=== PATIENT | female | born 1995 | race Caucasian/White ===

== ENCOUNTER 2016-05-02 15:07 | Outpatient (CLI) | payer OTHER | END 2016-05-02 15:08 | disposition home or self-care (01) | DX: Z11.3 Encounter for screening for infections with a predominantly sexual mode of transmission (principal); Z86.59 Personal history of other mental and behavioral disorders ==

== ENCOUNTER 2016-06-17 17:45 | Emergency (ER) | payer OTHER, MEDICAID | END 2016-06-17 18:51 | disposition home or self-care (01) | DX: S30.1XXA Contusion of abdominal wall, initial encounter (principal); Y00.XXXA Assault by blunt object, initial encounter; Y07.03 Male partner, perpetrator of maltreatment and neglect; O99.332 Smoking (tobacco) complicating pregnancy, second trimester; Z3A.15 15 weeks gestation of pregnancy ==

== ENCOUNTER 2016-06-28 18:39 | Outpatient (CLI) | payer OTHER, MEDICAID | END 2016-06-28 18:40 | disposition critical access hospital (66) | DX: R10.9 Unspecified abdominal pain (principal); R51 Headache; W20.8XXA Other cause of strike by thrown, projected or falling object, initial encounter; Y92.89 Other specified places as the place of occurrence of the external cause; R11.2 Nausea with vomiting, unspecified | CPT/HCPCS: A0425; A0429 ==

== ENCOUNTER 2016-06-28 18:54 | Emergency (ER) | payer OTHER, MEDICAID ==
[2016-06-28] MEDS ORDERED: SODIUM CHLORIDE 0.9% 1,000 ML IV ONE (19:06)
== END 2016-06-28 21:58 | disposition home or self-care (01) ==
DX: O26.892 Other specified pregnancy related conditions, second trimester (principal); R10.9 Unspecified abdominal pain; O99.282 Endocrine, nutritional and metabolic diseases complicating pregnancy, second trimester; E87.6 Hypokalemia; O99.332 Smoking (tobacco) complicating pregnancy, second trimester; Z3A.20 20 weeks gestation of pregnancy; R03.0 Elevated blood-pressure reading, without diagnosis of hypertension; Z59.0 Homelessness

== ENCOUNTER 2016-07-03 17:02 | Outpatient (CLI) | payer OTHER, MEDICAID | END 2016-07-03 17:03 | disposition home or self-care (01) | DX: Z36 Encounter for antenatal screening of mother (principal) ==

== ENCOUNTER 2016-07-03 20:32 | Outpatient (CLI) | payer OTHER, MEDICAID | END 2016-07-03 20:33 | disposition home or self-care (01) | DX: Z34.82 Encounter for supervision of other normal pregnancy, second trimester (principal) ==

== ENCOUNTER 2016-09-04 19:06 | Emergency (ER) | payer OTHER, MEDICAID ==
--- NOTE | 2016-09-04 20:21 | ED Physician Documentation ---
PD HPI URI - Stated complaint Stated Complaint: COUGH/30WK OB - Chief complaint Chief Complaint: General - History obtained from History obtained from: Patient - History of Present Illness Timing duration: Days Timing details: Gradual onset, Still present Associated symptoms: Nasal congestion, Rhinorrhea, Productive cough, Other (few brief nosebleeds this past few days.). No: Sore throat Contributing factors: No: Sick contact, Travel, COPD / asthma Similar symptoms before: Has not had sx before Recently seen: Not recently seen (has not been to OB clinic, so did some basic labs. Wanted to see Platelets in particular, given history of some nosebleeds. This was okay. 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 : None HEENT: None Psych: Depression, Anxiety Musculoskeletal: None Derm: Eczema - Past Surgical History Past Surgical History: No - Present Medications Home Medications: Ambulatory Orders Medication Instructions Recorded Confirmed Azithromycin [Zithromax] 250 mg PO DAILY #6 tablet 09/04/16 - Allergies Allergies/Adverse Reactions: Allergies Allergy/AdvReac Type Severity Reaction Status Date / Time No Known Drug Allergies Allergy Verified 06/28/16 18:58 - Social History Does the pt smoke?: Yes Smoking Status: Current every day smoker Does the pt drink ETOH?: Yes Does the pt have substance abuse?: Yes Substance Use and Type: Marijuana, Meth, Heroin - Immunizations Immunizations are current?: Yes - POLST Patient has POLST: No PD ED PE NORMAL - Vitals Vital signs reviewed: Yes - General General: Alert and oriented X 3, Well developed/nourished - HEENT HEENT: Ears normal, Pharynx benign - Neck Neck: Supple, no meningeal sign, No adenopathy - Cardiac Cardiac: RRR, No murmur - Respiratory Respiratory: Clear bilaterally - Abdomen Abdomen: Normal bowel sounds, Soft, Non tender, Non distended, Other (obviously gravid with fundus mid between umbilicus and xyphoid. ) - Derm Derm: Normal color, Warm and dry, No rash - Extremities Extremities: No tenderness to palpate, Normal ROM s pain, No edema, No calf tenderness / cord - Neuro Neuro: Alert and oriented X 3, No motor deficit, Normal speech Results - Vitals Vitals: Oxygen O2 Source Room air - Labs Labs: Laboratory Tests 09/04/16 09/04/16 09/04/16 21:00 21:14 21:14 WBC 15.3 H RBC 4.05 L Hgb 11.8 L Hct 35.5 L MCV 87.6 MCH 29.0 MCHC 33.1 RDW 13.8 Plt Count 447 MPV 7.3 L Neut # 10.8 H Lymph # 3.1 [place] # 1.2 H Eos # 0.2 Baso # 0.0 Absolute Nucleated RBC 0.00 Nucleated RBCs 0.0 Sodium 135 Potassium 3.8 Chloride 100 L Carbon Dioxide 26 Anion Gap 9.0 BUN 11 Creatinine 0.4 Estimated GFR (MDRD) 206 Glucose 86 Calcium 8.6 Total Bilirubin 0.2 AST 13 ALT 16 Alkaline Phosphatase 172 H Total Protein 6.4 L Albumin 2.5 L Globulin 3.9 Albumin/Globulin Ratio 0.6 L Lipase 22 Urine Color YELLOW Urine Clarity CLEAR Urine pH 6.5 Ur Specific [place] 1.025 Urine Protein NEGATIVE Urine Glucose (UA) NEGATIVE Urine Ketones NEGATIVE Urine Occult Blood NEGATIVE Urine Nitrite NEGATIVE Urine Bilirubin NEGATIVE Urine Urobilinogen 0.2 (NORMAL) Ur Leukocyte Esterase NEGATIVE Ur Microscopic Review NOT INDICATED Urine Culture Comments NOT INDICATED Procedures - Bedside sono Bedside sono by EMP: good viable baby with size c/w dates, good movement and heart rate. PD MEDICAL DECISION MAKING - ED course Complexity details: considered differential (I inadvertently ordered dose of robitussin AC (meatn to be just robitussin) given her history of drug abuse. Talked with her and told it was jsut the one dose. ), d/w patient Departure - Departure Disposition: 01 Home, Self Care Clinical Impression: Bronchitis Qualifiers: Weeks of gestation: 30 weeks Qualified Code(s): Z3A.30 - 30 weeks gestation of Condition: Stable Record reviewed to determine appropriate education?: Yes Instructions: ED Upper Resp Infec Abx Tx, ED Care Follow-Up: Foreign Castro MD [Provider Admit Priv/Credential] - Prescriptions: Azithromycin [Zithromax] 250 mg PO DAILY #6 tablet Comments: Use the Albuterol inhaler 2 puffs 4 times daily for 7-10 days. Zithromax for the bronchitis infection. Drink lots of fluids. Tylenol for fevers/pains. Follow up Dr. Castro next week as planned. Your blood tests and urine test is okay here. Discharge Date/Time: 09/04/16 22:01
[2016-09-04] MEDS ORDERED: ALBUTEROL 8 GM INHALER INH STA (20:38)
[2016-09-04] MEDS ORDERED: AZITHROMYCIN 250 MG TABLET PO STA (20:38)
[2016-09-04] MEDS ORDERED: DEXAMETHASONE 10 MG/ML VIAL PO STA (20:38)
[2016-09-04] MEDS ORDERED: guaiFENesin/CODEINE 5 ML UDC PO STA (20:39)
[2016-09-04] MEDS ORDERED: AZITHROMYCIN 250 MG TABLET PO ONE (20:53)
[2016-09-04] MEDS ORDERED: guaiFENesin/CODEINE 5 ML UDC ONE (20:54)
[2016-09-04] MEDS ORDERED: CHERRY SYRUP 10 ML UDC PO ONE (20:54)
[2016-09-04] MEDS ORDERED: DEXAMETHASONE 10 MG/ML VIAL ONE (20:54)
[2016-09-04] MEDS ORDERED: ALBUTEROL 18 GM INHALER INH ONE (20:55)
[2016-09-04 21:27] LABS: BILIRUBIN,URINE NEGATIVE (NEGATIVE); PH,URINE 6.5 PH (5.0-7.5)
[2016-09-04 21:30] LABS: BASOPHILS % (AUTO) 0.3 %; EOSINOPHILS # (AUTO) 0.2 10^3/uL (0.0-0.7); EOSINOPHILS % (AUTO) 1.1 %; HCT - HEMATOCRIT 35.5 % (37.0-47.0); HGB - HEMOGLOBIN 11.8 g/dL (12.0-16.0); LYMPHOCYTES # (AUTO) 3.1 10^3/uL (1.5-3.5); LYMPHOCYTES % (AUTO) 20.1 %; MEAN CORPUSCULAR HGB CONC 33.1 g/dL (32.0-36.0); MEAN CORPUSCULAR VOLUME 87.6 fL (81.0-99.0); MEAN PLATELET VOLUME 7.3 fL (7.9-10.8); MONOCYTES # (AUTO) 1.2 10^3/uL (0.0-1.0); MONOCYTES % (AUTO) 7.6 %; NEUTROPHILS # (AUTO) 10.8 10^3/uL (1.5-6.6); NEUTROPHILS % (AUTO) 70.9 %; RED BLOOD COUNT 4.05 10^6/uL (4.20-5.40); RED CELL DISTRIBUTION WIDTH 13.8 % (12.0-15.0); UNCORRECTED WHITE BLOOD COUNT 15.3 x10^3/uL; WHITE BLOOD COUNT 15.3 x10^3/uL (4.8-10.8)
[2016-09-04 21:34] LABS: ALBUMIN/GLOBULIN RATIO 0.6 (1.0-2.2); BILIRUBIN,TOTAL 0.2 mg/dL (0.2-1.0); CALCIUM 8.6 mg/dL (8.5-10.3); CREATININE 0.4 mg/dL (0.4-1.0); POTASSIUM 3.8 mmol/L (3.5-5.0); TOTAL PROTEIN 6.4 g/dL (6.7-8.2)
[2016-09-04 21:37] LABS: UA CHARGE (STRIP ONLY) YES; UR CULTURE IF IND NOT INDICATED
[2016-09-04 22:06] VITALS: BP 123/81
== END 2016-09-04 22:01 | disposition home or self-care (01) ==
LOC: ED 19:06
DX: O99.513 Diseases of the respiratory system complicating pregnancy, third trimester (principal); J40 Bronchitis, not specified as acute or chronic; O99.333 Smoking (tobacco) complicating pregnancy, third trimester; F17.200 Nicotine dependence, unspecified, uncomplicated; Z3A.30 30 weeks gestation of pregnancy; Z87.898 Personal history of other specified conditions
CPT/HCPCS: 36415; 80053; 81003; 83690; 85025; 94640; 94664; 99283; 99284; A9270; 81001; 87086

== ENCOUNTER 2016-09-08 10:58 | Outpatient (CLI) | payer OTHER, MEDICAID | END 2016-09-08 23:59 | disposition home or self-care (01) | LOC: LAB.R 10:58 | PROVIDERS: ATTEND Obstetrics & Gynecology | DX: Z36 Encounter for antenatal screening of mother (principal) | CPT/HCPCS: 80306 ==

== ENCOUNTER 2016-10-03 15:53 | Inpatient (IN) | payer OTHER, MEDICAID ==
[2016-10-03] MEDS ORDERED: TERBUTALINE 1 MG/ML VIAL SUBQ ONE ×2 (16:27→18:11)
[2016-10-03] MEDS ORDERED: LACTATED RINGERS 1,000 ML IV ONE ×3 (16:27→18:38)
[2016-10-03] MEDS ORDERED: MAGNESIUM SULFATE 2 GRAM 100 ML IV ONE (16:37)
[2016-10-03] MEDS ORDERED: BETAMETHASONE 30 MG/5 ML VIAL ONE (16:38)
[2016-10-03 17:13] VITALS: BP 122/76
[2016-10-03 17:18] LABS: BASOPHILS # (AUTO) 0.1 10^3/uL (0.0-0.1); BASOPHILS % (AUTO) 0.4 %; EOSINOPHILS # (AUTO) 0.1 10^3/uL (0.0-0.7); EOSINOPHILS % (AUTO) 0.6 %; HCT - HEMATOCRIT 34.1 % (37.0-47.0); HGB - HEMOGLOBIN 11.1 g/dL (12.0-16.0); LYMPHOCYTES # (AUTO) 2.6 10^3/uL (1.5-3.5); LYMPHOCYTES % (AUTO) 18.4 %; MEAN CORPUSCULAR HEMOGLOBIN 27.6 pg (27.0-31.0); MEAN CORPUSCULAR HGB CONC 32.6 g/dL (32.0-36.0); MEAN CORPUSCULAR VOLUME 84.5 fL (81.0-99.0); MEAN PLATELET VOLUME 7.6 fL (7.9-10.8); MONOCYTES % (AUTO) 7.4 %; NEUTROPHILS # (AUTO) 10.2 10^3/uL (1.5-6.6); NEUTROPHILS % (AUTO) 73.2 %; NUCLEATED RED BLOOD CELLS AUTO 0.1 /100WBC; RED BLOOD COUNT 4.04 10^6/uL (4.20-5.40); RED CELL DISTRIBUTION WIDTH 15.8 % (12.0-15.0); UNCORRECTED WHITE BLOOD COUNT 13.9 x10^3/uL; WHITE BLOOD COUNT 13.9 x10^3/uL (4.8-10.8)
[2016-10-03] MEDS ORDERED: MAGNESIUM SULFATE 40 GM in LACTATED RINGERS 420 ML IV SCH (17:20)
[2016-10-03] MEDS: MAGNESIUM SULFATE 2 GRAM 50 ML IV SCH ×2 (17:31→17:32)
[2016-10-03 17:32] LABS: URIC ACID 4.4 mg/dL (2.6-7.2)
[2016-10-03 17:48] LABS: UR CULTURE IF IND INDICATED; WBC,URINE QNS /HPF (0-5)
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
== END 2016-10-03 19:19 | disposition short-term general hospital (02) | DRG 778 ==
LOC: WFO 15:53 → OB 15:54 → WFO 16:29 → OB 16:30
PROVIDERS: ADMIT Obstetrics & Gynecology; ATTEND Obstetrics & Gynecology
DX: O60.03 Preterm labor without delivery, third trimester (principal); O99.513 Diseases of the respiratory system complicating pregnancy, third trimester; J45.909 Unspecified asthma, uncomplicated; O99.333 Smoking (tobacco) complicating pregnancy, third trimester; F17.210 Nicotine dependence, cigarettes, uncomplicated; Z3A.34 34 weeks gestation of pregnancy; Z59.0 Homelessness; Z91.19 Patient's noncompliance with other medical treatment and regimen; Z63.0 Problems in relationship with spouse or partner
CPT/HCPCS: 80306; 81001; 82570; 83615; 84156; 84450; 84550; 85025; 87081; 87086; 87491; 87591; 87797; 99214

== ENCOUNTER 2016-10-03 19:20 | Outpatient (CLI) | payer OTHER, MEDICAID | END 2016-10-03 19:21 | disposition short-term general hospital (02) | LOC: EMS 19:20 | PROVIDERS: ATTEND Surgery | DX: O60.03 Preterm labor without delivery, third trimester (principal) | CPT/HCPCS: A0425; A0434 ==

== ENCOUNTER 2017-04-07 17:35 | Outpatient (CLI) | payer OTHER, MEDICAID | END 2017-04-07 17:36 | disposition critical access hospital (66) | LOC: EMS 17:35 | PROVIDERS: ATTEND Surgery | DX: R10.9 Unspecified abdominal pain (principal) | CPT/HCPCS: A0425; A0429 ==

== ENCOUNTER 2017-04-07 17:55 | Emergency (ER) | payer OTHER, MEDICAID ==
[2017-04-07 18:14] VITALS: BP 112/98
--- NOTE | 2017-04-07 19:20 | ED Physician Documentation ---
History of Present Illness - Stated complaint Stated Complaint: ABD CRAMPS - Chief complaint Chief Complaint: Abd Pain - History obtained from History obtained from: Patient, EMS - History of Present Illness Timing: Today Pain level max: 10 Pain level now: 0 Improved by: nothing Worsened by: nothing - Treatment prior to arrival Treatment prior to arrival: Patient is a 21-year-old female who presents to the emergency department complaining of abdominal cramping that feels like "menstrual cramps". She states that her LMP was 1 month ago. States increased pain today. Last used heroin 2 weeks ago. Last used methamphetamines 2-3 days ago. States the cramping has now resolved. Also had diarrhea 1. Concerned that she could be . Review of Systems Constitutional: denies: Fever, Chills Throat: denies: Sore throat Cardiac: denies: Chest pain / pressure Respiratory: denies: Cough GI: reports: Diarrhea (Once). denies: Nausea, Vomiting, Hematemesis, Bloody / black stool : denies: Dysuria, Frequency, Hesitancy, Discharge Skin: denies: Rash Musculoskeletal: denies: Neck pain, Back pain Neurologic: denies: Headache PD PAST MEDICAL HISTORY - Past Medical History Past Medical History: Yes Cardiovascular: None Respiratory: None Neuro: None Endocrine/Autoimmune: None GI: None RN OTOLARYNGOLOGY: None : None HEENT: None Psych: Depression, Anxiety Musculoskeletal: None Derm: Eczema - Past Surgical History Past Surgical History: No - Present Medications Home Medications: Ambulatory Orders Medication Instructions Recorded Confirmed Azithromycin [Zithromax] 250 mg PO DAILY #6 tablet 09/04/16 - Allergies Allergies/Adverse Reactions: Allergies Allergy/AdvReac Type Severity Reaction Status Date / Time No Known Drug Allergies Allergy Verified 04/07/17 18:02 - Social History Does the pt smoke?: No Smoking Status: Never smoker Does the pt drink ETOH?: Yes ETOH Use: Beer, Liquor Does the pt have substance abuse?: Yes Substance Use and Type: Marijuana, Meth, Heroin - Immunizations Immunizations are current?: Yes - POLST Patient has POLST: No PD ED PE NORMAL - Vitals Vital signs reviewed: Yes - General General: Alert and oriented X 3, No acute distress, Well developed/nourished - HEENT HEENT: PERRL, Moist mucous membranes - Neck Neck: Supple, no meningeal sign - Cardiac Cardiac: RRR, Strong equal pulses - Respiratory Respiratory: No respiratory distress, Clear bilaterally - Abdomen Abdomen: Soft, Non tender, Non distended - Female Female : Pt declined - Back Back: No CVA TTP, No spinal TTP - Derm Derm: Warm and dry - Extremities Extremities: No calf tenderness / cord - Neuro Neuro: Alert and oriented X 3 - Psych Psych: Normal mood, Normal affect Results - Vitals Vitals: Vital Signs - 24 hr 04/07/17 17:55 Temperature 36.7 C Heart Rate 87 Respiratory 14 Rate Blood Pressure 112/98 H O2 Saturation 100 Oxygen O2 Source Room air - Labs Labs: Laboratory Tests 04/07/17 04/07/17 19:13 19:13 Urine Color DARK YELLOW Urine Clarity HAZY Urine pH 5.5 Ur Specific [place] >=1.030 H Urine Protein NEGATIVE Urine Glucose (UA) NEGATIVE Urine Ketones TRACE Urine Occult Blood NEGATIVE Urine Nitrite NEGATIVE Urine Bilirubin MODERATE H Urine Urobilinogen 0.2 (NORMAL) Ur Leukocyte Esterase NEGATIVE Urine RBC 0-5 Urine WBC 0-3 Ur Squamous Epith Cells MANY Squamous H Amorphous Sediment Few Urine Bacteria Rare Ur Microscopic Review INDICATED Urine Culture Comments NOT INDICATED Urine HCG, Qual NEGATIVE Urine Opiates Screen NEGATIVE Ur Oxycodone Screen NEGATIVE Urine Methadone Screen NEGATIVE Ur Propoxyphene Screen NEGATIVE Ur Barbiturates Screen NEGATIVE Ur Tricyclics Screen NEGATIVE Ur Phencyclidine Scrn NEGATIVE Ur Amphetamine Screen POSITIVE H U Methamphetamines Scrn POSITIVE H U Benzodiazepines Scrn NEGATIVE Urine Cocaine Screen NEGATIVE U Cannabinoids Screen POSITIVE H PD MEDICAL DECISION MAKING - ED course Complexity details: reviewed results, re-evaluated patient, considered differential, d/w patient ED course: Patient is a 21-year-old female presents to the emergency department with abdominal/pelvic pain of unclear etiology. Resolved in the emergency department. Will have her follow-up with her PCP for further evaluation and care. No acute findings on urinalysis that would explain her symptoms. Patient does not desire any further workup at this time. She states that she just wants to eat. Patient counseled regarding signs and symptoms for which I believe and urgent re-evaluation would be necessary. Patient with good understanding of and agreement to plan and is comfortable going home at this time This document was made in part using voice recognition software. While efforts are made to proofread this document, sound alike and grammatical errors may occur. Departure - Departure Disposition: 01 Home, Self Care Clinical Impression: Abdominal pain Qualifiers: Abdominal location: unspecified location Qualified Code(s): R10.9 - Unspecified abdominal pain Condition: Good Instructions: ED Abdominal Pain Unkn Cause Follow-Up: Yany Rivas ARNP [Primary Care Provider] - Within 1 week Comments: Return if you worsen. Discharge Date/Time: 04/07/17 20:45
[2017-04-07 19:40] LABS: GLUCOSE, URINE (UA) NEGATIVE (NEGATIVE); KETONES,URINE (UA) TRACE mg/dL (NEGATIVE); LEUKOCYTE ESTERASE, URINE NEGATIVE (NEGATIVE); NITRITE,URINE NEGATIVE (NEGATIVE); OCCULT BLOOD,URINE NEGATIVE (NEGATIVE); PH,URINE 5.5 PH (5.0-7.5); PROTEIN,URINE NEGATIVE (NEGATIVE); UROBILINOGEN,URINE 0.2 (NORMAL) E.U./dL (NORMAL)
[2017-04-07 19:44] LABS: BILIRUBIN,URINE MODERATE (NEGATIVE); CLARITY,URINE HAZY (CLEAR); HCG UR QUAL NEGATIVE; ICTOTEST,URINE POSITIVE
[2017-04-07 19:50] LABS: MUDS CUTOFF CONCENTRATIONS CUTOFF CONC BELOW:
[2017-04-07 19:57] LABS: AMORPHOUS SEDIMENT,UR Few /LPF; BACTERIA,URINE Rare /HPF (None Seen); RBC,URINE 0-5 /HPF (0-5); SQUAMOUS EPITHELIAL CELL,UR MANY Squamous (<= Few)
[2017-04-07 20:04] LABS: COCAINE SCREEN URINE NEGATIVE (NEGATIVE); METHAMPHETAMINES SCREEN, URINE POSITIVE (NEGATIVE)
[2017-04-07 20:05] LABS: AMPHETAMINE SCREEN,URINE POSITIVE (NEGATIVE); BENZODIAZEPINES SCREEN, URINE NEGATIVE (NEGATIVE); METHADONE SCREEN, URINE NEGATIVE (NEGATIVE); OPIATE SCREEN, URINE NEGATIVE (NEGATIVE); OXYCODONE SCREEN, URINE NEGATIVE (NEGATIVE); PROPOXYPHENE SCREEN, URINE NEGATIVE (NEGATIVE); TRICYCLIC ANTIDEPRESSANT,URINE NEGATIVE (NEGATIVE)
== END 2017-04-07 20:45 | disposition home or self-care (01) ==
LOC: EDUNIT# → ED 17:55 → SUPCPDRO 17:55 → ED 20:45
DX: R10.9 Unspecified abdominal pain (principal)
CPT/HCPCS: 80306; 81001; 81003; 81025; 87086; 99283

== ENCOUNTER 2018-03-15 18:02 | Emergency (ER) | payer MEDICAID, OTHER ==
[2018-03-15 18:07] VITALS: BP 139/89
== END 2018-03-15 18:41 | disposition left against medical advice (07) ==
LOC: ED 18:02
DX: Z53.21 Procedure and treatment not carried out due to patient leaving prior to being seen by health care provider (principal)

== ENCOUNTER 2018-10-11 02:13 | Emergency (ER) | payer MEDICAID ==
[2018-10-11 02:28] VITALS: BP 138/96
--- NOTE | 2018-10-11 02:47 | ED Physician Documentation ---
PD HPI SKIN - Stated complaint Stated Complaint: RASH - Chief complaint Chief Complaint: Wound - History obtained from History obtained from: Patient - History of Present Illness Timing - onset: How many days ago (3) Timing - duration: Days (3) Timing - details: Still present Location: Chest, Back Quality / character: Itchy, Painful Similar symptoms before: Has not had sx before - Additional information Additional information: The patient is a 22-year-old female who presents with "red bumps" on the left side of her chest and shoulder. The rash started 3 days ago and has gotten progressively worse. She reports associated itching and "stinging sensation." She denies history of similar symptoms in the past. Her history is significant for daily methamphetamine use and recent heroin use, which she inhales. She denies history of MRSA. 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 : None HEENT: None Psych: Depression, Anxiety Musculoskeletal: None Derm: Eczema - Past Surgical History Past Surgical History: No - Present Medications Home Medications: Ambulatory Orders Medication Instructions Recorded Confirmed Acyclovir 200 mg PO 5XD #50 capsule 10/11/18 - Allergies Allergies/Adverse Reactions: Allergies Allergy/AdvReac Type Severity Reaction Status Date / Time No Known Drug Allergies Allergy Verified 10/11/18 02:28 - Social History Does the pt smoke?: Yes Smoking Status: Current every day smoker Does the pt drink ETOH?: Yes Does the pt have substance abuse?: Yes Substance Use and Type: Meth, Heroin - Immunizations Immunizations are current?: No - POLST Patient has POLST: No PD ED PE NORMAL - Vitals Vital signs reviewed: Yes (Borderline hypertension initially.) - General General: Alert and oriented X 3, Well developed/nourished - HEENT HEENT: Atraumatic, PERRL, EOMI, Pharynx benign, Other (Pupils are neuro at less than 4 mm, equal bilaterally.) - Neck Neck: Supple, no meningeal sign, No adenopathy - Cardiac Cardiac: RRR, No murmur - Respiratory Respiratory: No respiratory distress, Clear bilaterally - Abdomen Abdomen: Soft, Non tender - Back Back: No CVA TTP, No spinal TTP - Derm Derm: Other (Vesicular and papular rash involving the left anterior chest and left posterior shoulder, and dermatomal distribution.) - Extremities Extremities: No edema, No calf tenderness / cord - Neuro Neuro: Alert and oriented X 3, No motor deficit, No sensory deficit, Normal speech Results - Vitals Vitals: Oxygen O2 Source Room air PD MEDICAL DECISION MAKING - ED course Complexity details: reviewed old records, considered differential, d/w patient ED course: The patient's presentation is most consistent with shingles, characterized by vesicular rash in dermatomal distribution. She is being discharged with prescription for acyclovir. I discussed with her the expected course of illness, outpatient treatment and follow-up, as well as potentially worrisome signs or symptoms that should prompt reevaluation in the emergency department. She declined referral for drug treatment. Departure - Departure Disposition: 01 Home, Self Care Clinical Impression: Shingles Qualifiers: Herpes zoster complications: without complications Qualified Code(s): B02.9 - Zoster without complications Condition: Stable Instructions: ED Shingles Follow-Up: [facility] [Provider Group] Prescriptions: Acyclovir 200 mg PO 5XD #50 capsule Comments: Take acyclovir 5 times daily as prescribed. You can use ibuprofen, up to 800 mg 3 times daily for anti-inflammatory effect. Consider seeking outpatient treatment for drug addiction. Follow-up with primary physician within 1 to 2 weeks. Call to schedule appointment. Return to the emergency department if you develop increasingly painful rash or secondary infection, or otherwise worsening symptoms. Discharge Date/Time: 10/11/18 02:53
== END 2018-10-11 02:53 | disposition home or self-care (01) ==
LOC: ED 02:13
DX: B02.9 Zoster without complications (principal); F17.200 Nicotine dependence, unspecified, uncomplicated
CPT/HCPCS: 99282; 99284

== ENCOUNTER 2018-11-20 22:16 | Emergency (ER) | payer OTHER, MEDICAID ==
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
[2018-11-20] MEDS ORDERED: ACETAMINOPHEN 325 MG TABLET PO STA (23:12)
[2018-11-20] MEDS ORDERED: IBUPROFEN 600 MG TABLET PO STA (23:12)
[2018-11-20 23:15] VITALS: BP 115/84
== END 2018-11-20 23:35 | disposition home or self-care (01) ==
LOC: ED 22:16
DX: S00.33XA Contusion of nose, initial encounter (principal); Y04.2XXA Assault by strike against or bumped into by another person, initial encounter; F17.200 Nicotine dependence, unspecified, uncomplicated
CPT/HCPCS: 70160; 99282; 99283; A9270

== ENCOUNTER 2019-02-07 13:00 | Outpatient (CLI) | payer MEDICAID ==
--- NOTE | 2019-02-07 15:05 | Ultrasound Report ---
Reason: POSITIVE TEST Procedure Date: 02/07/2019 Accession Number: [id number] / [id number] Procedure: US - OB First Trimester CPT Code: Final Report FULL RESULT: EXAM: FIRST TRIMESTER OBSTETRIC ULTRASOUND (Less than 11 weeks) EXAM DATE: 02/07/2019 02:23 PM. CLINICAL HISTORY: POSITIVE TEST. LMP: Unknown. COMPARISONS: None. TECHNIQUE: Transabdominal and transvaginal ultrasound examination with static image documentation. CLINICAL DATES: EGA 11 weeks 1 day with CHRISTIANO 08/28/2019 based on LMP other. ASSESSMENT: Gestational Sac: Single intrauterine. Mean gestational sac diameter: 47 mm = 10 weeks 2 days. Embryo: CRL (crown-rump length) 2.65 mm = 9 weeks 3 days. Cardiac activity: 172 beats per minute. Yolk sac: 5.7 mm. Amniotic fluid: Not accurately assessed at this gestational age. Early placenta: Posterior. Other: No perigestational fluid collection demonstrated. MATERNAL STRUCTURES: Uterus: Anteverted/ . 3.5 x 2.7 x 3.5 cm fibroid posterior. Cervix: Closed. Right Ovary/Adnexa: The ovary measures 3.5 x 1.6 x 2.4 cm, volume 7 cc. Resolving corpus luteal cyst 2.1 x 1.3 x 1.5 cm. Left Ovary/Adnexa: The ovary measures 1.9 x 1.4 x 1.5 cm, volume 2 cc. Unremarkable. Free Fluid: None. Other: None. IMPRESSION: 1. Single viable intrauterine at EGA 9 weeks 3 days with CHRISTIANO 09/09/2019 based on crown-rump length, which is discordant with clinical dates. RADIA
== END 2019-02-07 13:01 | disposition home or self-care (01) ==
LOC: DI 13:00
PROVIDERS: ATTEND Nurse Practitioner Obstetrics & Gynecology
DX: Z32.01 Encounter for pregnancy test, result positive (principal)
CPT/HCPCS: 76801

== ENCOUNTER 2019-02-14 08:00 | Outpatient (CLI) | payer MEDICAID ==
[2019-02-14 17:48] LABS: MUDS CUTOFF CONCENTRATIONS CUTOFF CONC BELOW:
[2019-02-14 18:08] LABS: COCAINE SCREEN URINE NEGATIVE (NEGATIVE); METHAMPHETAMINES SCREEN, URINE POSITIVE (NEGATIVE); OPIATE SCREEN, URINE NEGATIVE (NEGATIVE)
[2019-02-14 18:09] LABS: AMPHETAMINE SCREEN,URINE POSITIVE (NEGATIVE); BENZODIAZEPINES SCREEN, URINE NEGATIVE (NEGATIVE); METHADONE SCREEN, URINE NEGATIVE (NEGATIVE); OXYCODONE SCREEN, URINE NEGATIVE (NEGATIVE); PROPOXYPHENE SCREEN, URINE NEGATIVE (NEGATIVE); TRICYCLIC ANTIDEPRESSANT,URINE NEGATIVE (NEGATIVE)
[2019-02-14 18:14] LABS: GLUCOSE, URINE (UA) NEGATIVE (NEGATIVE); KETONES,URINE (UA) TRACE mg/dL (NEGATIVE); LEUKOCYTE ESTERASE, URINE NEGATIVE (NEGATIVE); NITRITE,URINE NEGATIVE (NEGATIVE); OCCULT BLOOD,URINE NEGATIVE (NEGATIVE); PROTEIN,URINE NEGATIVE (NEGATIVE); UROBILINOGEN,URINE 1 (NORMAL) E.U./dL (NORMAL)
[2019-02-14 18:21] LABS: BACTERIA,URINE Few /HPF (None Seen); BILIRUBIN,URINE NEGATIVE (NEGATIVE); CLARITY,URINE CLOUDY (CLEAR); ICTOTEST,URINE NEGATIVE; RBC,URINE 0-5 /HPF (0-5); SQUAMOUS EPITHELIAL CELL,UR MOD Squamous (<= Few)
[2019-02-14 18:22] LABS: AMORPHOUS SEDIMENT,UR Rare /LPF; CRYSTALS,URINE 6-10 Calcium Oxalate /LPF; MUCUS,URINE Moderate Strands
== END 2019-02-14 23:59 | disposition home or self-care (01) ==
LOC: LAB.R 08:00
PROVIDERS: ATTEND Obstetrics & Gynecology
DX: Z36.89 Encounter for other specified antenatal screening (principal)
CPT/HCPCS: 80306; 81001; 87086

== ENCOUNTER 2019-02-14 08:00 | Outpatient (CLI) | payer MEDICAID ==
[2019-02-14 20:29] LABS: CANDIDA GROUP DNA NEGATIVE (NEGATIVE); CANDIDA KRUSEI DNA NEGATIVE (NEGATIVE); TRICHOMONAS VAGINALIS DNA NEGATIVE (NEGATIVE)
== END 2019-02-14 23:59 | disposition home or self-care (01) ==
LOC: LAB.R 08:00
PROVIDERS: ATTEND Obstetrics & Gynecology
DX: N89.8 Other specified noninflammatory disorders of vagina (principal)
CPT/HCPCS: 80306; 81001; 87661; 87801

== ENCOUNTER 2019-03-01 03:16 | Emergency (ER) | payer MEDICAID ==
--- NOTE | 2019-03-01 03:37 | ED Physician Documentation ---
PD HPI HEENT - Stated complaint Stated Complaint: POSSIBLY SWALLOWED A HAIR C/O SORETHROAT/14WK PG - Chief complaint Chief Complaint: Heent - History obtained from History obtained from: Patient - History of Present Illness Timing - onset: How many days ago (2-3) Timing - duration: Days Timing - details: Gradual onset, Waxing and waning Location: Throat Worsens: Swalllowing Associated symptoms: No: Fever Similar symptoms before: Has not had sx before - Additional information Additional information: chief complaint is FB sensation in throat x 2-3 days. she denies gillian pain/sore throat. she also says she developed nausea and vomiting earlier today with episodic abdominal cramping pain. She is approximately 13 weeks and had outpatient US 02/07/19 that showed single viable IUP. Review of Systems Constitutional: denies: Fever, Chills, Sweats Throat: reports: Other (throat irriation and FB sensation). denies: Sore throat Cardiac: reports: Reviewed and negative Respiratory: reports: Reviewed and negative GI: reports: Abdominal Pain, Nausea, Vomiting. denies: Constipation, Diarrhea : reports: Now EGA (13 weeks). 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 : None HEENT: None Psych: Depression, Anxiety Musculoskeletal: None Derm: Eczema - Past Surgical History Past Surgical History: No - Present Medications Home Medications: Ambulatory Orders Medication Instructions Recorded Confirmed Amoxicillin 500 mg PO BID #19 capsule 03/01/19 Ondansetron Odt [Zofran] 4 mg TL Q6H PRN #10 tablet 03/01/19 - Allergies Allergies/Adverse Reactions: Allergies Allergy/AdvReac Type Severity Reaction Status Date / Time No Known Drug Allergies Allergy Verified 03/01/19 03:30 - Social History Does the pt smoke?: Yes Smoking Status: Current every day smoker Does the pt drink ETOH?: Yes Does the pt have substance abuse?: Yes - Immunizations Immunizations are current?: No - POLST Patient has POLST: No PD ED PE NORMAL - Vitals Vital signs reviewed: Yes - General General: Alert and oriented X 3, No acute distress, Well developed/nourished - HEENT HEENT: Moist mucous membranes - Neck Neck: Supple, no meningeal sign - Cardiac Cardiac: RRR, No murmur - Respiratory Respiratory: No respiratory distress, Clear bilaterally - Abdomen Abdomen: Normal bowel sounds, Soft, Non tender, Non distended - Back Back: No CVA TTP PD ED PE EXPANDED - HEENT HEENT: Pharyngeal erythema Results - Vitals Vitals: Vital Signs - 24 hr 03/01/19 03/01/19 03:20 05:27 Temperature 37.1 C 36.9 C Heart Rate 107 H 100 Respiratory 18 16 Rate Blood Pressure 118/66 126/78 O2 Saturation 99 100 Oxygen O2 Source Room air - Labs Labs: Laboratory Tests 03/01/19 03/01/19 03/01/19 04:03 04:07 04:07 WBC 7.0 RBC 3.90 L Hgb 12.4 Hct 35.4 L MCV 90.8 MCH 31.8 H MCHC 35.0 RDW 12.7 Plt Count 313 MPV 8.9 Neut # (Auto) 4.2 Lymph # (Auto) 2.1 [place] # (Auto) 0.5 Eos # (Auto) 0.1 Baso # (Auto) 0.0 Absolute Nucleated RBC 0.00 Nucleated RBC % 0.0 Sodium 136 Potassium 3.3 L Chloride 104 Carbon Dioxide 23 Anion Gap 9.0 BUN 10 Creatinine 0.5 Estimated GFR (MDRD) 154 Glucose 85 Calcium 8.4 L Total Bilirubin 0.3 AST 14 ALT 14 Alkaline Phosphatase 56 Total Protein 6.8 Albumin 3.2 Globulin 3.6 Albumin/Globulin Ratio 0.9 L Lipase 20 L Group A Strep Rapid POSITIVE H PD MEDICAL DECISION MAKING - ED course Complexity details: reviewed old records, reviewed results, re-evaluated patient, considered differential, d/w patient ED course: NAD during ED stay. reassuring blood test results and UA, reported good relief of nausea with PO zofran. Rapid strep (+) and given amoxicillin in ED and rx for same, as well as rx for zofran Departure - Departure Disposition: 01 Home, Self Care Clinical Impression: Strep pharyngitis Vomiting Qualifiers: Vomiting type: unspecified Vomiting Intractability: non-intractable Nausea presence: with nausea Qualified Code(s): R11.2 - Nausea with vomiting, unspecified Instructions: ED Strep Pharyngitis Conf, ED Nausea Vomiting Prescriptions: Amoxicillin 500 mg PO BID #19 capsule Ondansetron Odt [Zofran] 4 mg TL Q6H PRN #10 tablet PRN Reason: Nausea / Vomiting Discharge Date/Time: 03/01/19 05:29
[2019-03-01] MEDS ORDERED: ONDANSETRON ODT 4 MG TABLET TL STA (03:54)
[2019-03-01 04:13] LABS: BASOPHILS % (AUTO) 0.3 %; EOSINOPHILS # (AUTO) 0.1 10^3/uL (0.0-0.7); HGB - HEMOGLOBIN 12.4 g/dL (12.0-16.0); LYMPHOCYTES # (AUTO) 2.1 10^3/uL (1.5-3.5); LYMPHOCYTES % (AUTO) 30.6 %; MEAN CORPUSCULAR HEMOGLOBIN 31.8 pg (27.0-31.0); MEAN CORPUSCULAR VOLUME 90.8 fL (81.0-99.0); MEAN PLATELET VOLUME 8.9 fL (7.9-10.8); MONOCYTES # (AUTO) 0.5 10^3/uL (0.0-1.0); MONOCYTES % (AUTO) 6.6 %; NEUTROPHILS # (AUTO) 4.2 10^3/uL (1.5-6.6); NEUTROPHILS % (AUTO) 60.2 %; PLT - PLATELET COUNT 313 10^3/uL (130-450); RED CELL DISTRIBUTION WIDTH 12.7 % (12.0-15.0)
[2019-03-01 04:54] LABS: ALBUMIN 3.2 g/dL (3.2-5.5); ALBUMIN/GLOBULIN RATIO 0.9 (1.0-2.2); BILIRUBIN,TOTAL 0.3 mg/dL (0.2-1.0); CALCIUM 8.4 mg/dL (8.5-10.3); CREATININE 0.5 mg/dL (0.4-1.0); TOTAL PROTEIN 6.8 g/dL (6.7-8.2)
[2019-03-01] MEDS ORDERED: AMOXICILLIN 250 MG CAPSULE PO STA (05:13)
[2019-03-01 05:29] VITALS: BP 126/78
== END 2019-03-01 05:29 | disposition home or self-care (01) ==
LOC: ED 03:16
DX: O98.811 Other maternal infectious and parasitic diseases complicating pregnancy, first trimester (principal); J02.0 Streptococcal pharyngitis; O99.89 Other specified diseases and conditions complicating pregnancy, childbirth and the puerperium; R11.2 Nausea with vomiting, unspecified; F17.200 Nicotine dependence, unspecified, uncomplicated; Z3A.13 13 weeks gestation of pregnancy
CPT/HCPCS: 36415; 80053; 83690; 85025; 87430; 99283; A9270; Q0162

== ENCOUNTER 2019-03-11 09:40 | Outpatient (CLI) | payer OTHER, MEDICAID ==
[2019-03-11 10:13] VITALS: BP 114/69
--- NOTE | 2019-03-11 13:00 | PROVIDER PROGRESS NOTE ---
- HPI Current : Current EDU 08/29/19 Gestation 15 Weeks and 4 Days 4 Para 1 Vital Signs Temperature 36.7 C 03/11/19 10:00 Heart Rate 100 03/11/19 10:00 Respiratory Rate 16 03/11/19 10:00 Blood Pressure 114/69 03/11/19 10:00 O2 Saturation 99 03/11/19 10:00 Temperature 36.7 C 03/11/19 10:00 Heart Rate 100 03/11/19 10:00 Respiratory Rate 16 03/11/19 10:00 Blood Pressure 114/69 03/11/19 10:00 O2 Saturation 99 03/11/19 10:00 The patient came through the emergency room complaining of abdominal pain. She was sent to OB at 15 weeks and 4 days gestation. Because she is less than 20 weeks gestation she was sent back to ER for further evaluation. - Procedures Findings: Intrauterine at 15 weeks 4 days gestation - Plan Plan: The patient has been sent to ER for further evaluation of her abdominal pain.
--- NOTE | 2019-03-11 13:37 | Ultrasound Report ---
Reason: unable to obtain FHT Procedure Date: 03/11/2019 Accession Number: [id number] / [id number] Procedure: US - OB Limited CPT Code: Final Report FULL RESULT: EXAM: LIMITED OBSTETRICAL ULTRASOUND EXAM DATE: 03/11/2019 12:44 PM. CLINICAL HISTORY: Unable to obtain FHT. COMPARISON: OB LIMITED 06/28/2016 8:10 PM OB FIRST TRIMESTER 02/07/2019 1:48 PM. TECHNIQUE: Real-time sonographic evaluation of the fetus performed by the materials branch chief. Multiple marketing sales representative static images were saved for review. DATING: Established EGA 15 weeks 5 days with CHRISTIANO 08/28/2019. GENERAL EVALUATION Bass . Cardiac activity: 158 bpm. movement: Visualized. Presentation: Breech Placenta: Posterior position. Amniotic fluid: Normal. JANET 11.5 cm. MVP 4.4 cm. MATERNAL STRUCTURES Uterus measures 11.9 x 8.9 cm. Right ovary measures 2.2 x 1.4 x 1.5 cm. Volume 2.4 cc. Left ovary measures 2.1 x 1.5 x 1.6 cm. Volume 2.6 cc. Cervix appears closed. IMPRESSION: 1. Bass live intrauterine with gestational age 15 weeks 5 days based on previously established EDC of 08/28/2019. heart rate 158 bpm.. RADIA
== END 2019-03-11 11:23 | disposition home or self-care (01) ==
LOC: WFO 09:40 → FBP 09:46 → WFO 11:23
PROVIDERS: ATTEND Obstetrics & Gynecology
DX: O99.89 Other specified diseases and conditions complicating pregnancy, childbirth and the puerperium (principal); R10.9 Unspecified abdominal pain; Z3A.15 15 weeks gestation of pregnancy
CPT/HCPCS: 76815; 99213

== ENCOUNTER 2019-03-11 11:16 | Emergency (ER) | payer OTHER, MEDICAID ==
[2019-03-11 11:27] VITALS: BP 123/70
--- NOTE | 2019-03-11 11:38 | ED Physician Documentation ---
PD HPI ABD PAIN - Stated complaint Stated Complaint: FEMALE /15WK OB - Chief complaint Chief Complaint: Abd Pain - History obtained from History obtained from: Patient - History of Present Illness Timing - onset: How many days ago (2-3) Timing - duration: Days (2-3) Timing - details: Gradual onset Pain level max: 5 Pain level now: 4 Quality: Sharp, Pain Location: Other (RLQ, R pelvic) Radiation: No: Chest, , Lower back, Left flank, Left shoulder, Right flank, Right shoulder, Upper back Improved by: Laying still Worsened by: Moving Associated symptoms: Nausea. No: Fever, Vomiting, Hematemesis, Diarrhea, Constipation, Melena, Hematochezia, Dysuria - Additional information Additional information: Pt seen in OB. She is approx 15 weeks . . No fevers. no vaginal bleeding or discharge. 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 : None HEENT: None Psych: Depression, Anxiety Musculoskeletal: None Derm: Eczema - Past Surgical History Past Surgical History: No - Allergies Allergies/Adverse Reactions: Allergies Allergy/AdvReac Type Severity Reaction Status Date / Time No Known Drug Allergies Allergy Verified 03/11/19 11:27 - Social History Does the pt smoke?: Yes Smoking Status: Current every day smoker Does the pt drink ETOH?: Yes Does the pt have substance abuse?: Yes - Immunizations Immunizations are current?: No - POLST Patient has POLST: No PD ED PE NORMAL - Vitals Vital signs reviewed: Yes - General General: Alert and oriented X 3, No acute distress - HEENT HEENT: Moist mucous membranes - Neck Neck: Supple, no meningeal sign - Cardiac Cardiac: RRR, Strong equal pulses - Respiratory Respiratory: No respiratory distress, Clear bilaterally - Abdomen Abdomen: Soft, Non distended, Other (mild TTP RLQ, no peritoneal signs. ) - Derm Derm: Warm and dry - Neuro Neuro: Alert and oriented X 3 - Psych Psych: Normal mood, Normal affect Results - Vitals Vitals: Vital Signs - 24 hr 03/11/19 03/11/19 11:24 13:36 Temperature 36.7 C Heart Rate 91 89 Respiratory 18 16 Rate Blood Pressure 123/70 123/70 O2 Saturation 100 99 Oxygen O2 Source Room air - Labs Labs: Laboratory Tests 03/11/19 03/11/19 03/11/19 11:31 11:44 11:44 WBC 6.4 RBC 4.20 Hgb 12.8 Hct 37.8 MCV 90.0 MCH 30.5 MCHC 33.9 RDW 12.5 Plt Count 339 MPV 8.9 Neut # (Auto) 3.6 Lymph # (Auto) 2.1 [place] # (Auto) 0.6 Eos # (Auto) 0.1 Baso # (Auto) 0.0 Absolute Nucleated RBC 0.00 Nucleated RBC % 0.0 Sodium 134 L Potassium 3.8 Chloride 100 L Carbon Dioxide 24 Anion Gap 10.0 BUN 10 Creatinine 0.6 Estimated GFR (MDRD) 125 Glucose 79 Calcium 9.3 Total Bilirubin 0.5 AST 12 ALT 13 Alkaline Phosphatase 50 Total Protein 6.9 Albumin 3.3 Globulin 3.6 Albumin/Globulin Ratio 0.9 L Lipase 24 Urine Color YELLOW Urine Clarity CLEAR Urine pH 7.0 Ur Specific [place] <=1.005 Urine Protein NEGATIVE Urine Glucose (UA) NEGATIVE Urine Ketones NEGATIVE Urine Occult Blood NEGATIVE Urine Nitrite NEGATIVE Urine Bilirubin NEGATIVE Urine Urobilinogen 0.2 (NORMAL) Ur Leukocyte Esterase NEGATIVE Ur Microscopic Review NOT INDICATED Urine Culture Comments NOT INDICATED - Rads (name of study) Abdominal ultrasound Radiology: Prelim report reviewed, EMP read contemporaneously, See rad report (No evidence of appendicitis.) PD MEDICAL DECISION MAKING - ED course Complexity details: reviewed results, re-evaluated patient, considered differential, d/w patient ED course: Patient presents the emergency part with right pelvic pain. She is approximate 15 weeks . Bedside ultrasound reveals an intrauterine with good movement. heart rate approximate 150 bpm. Images were shown to the patient. No acute laboratory abnormalities. No evidence of appendicitis on ultrasound. Patient counseled regarding signs and symptoms for which I believe and urgent re-evaluation would be necessary. Patient with good understanding of and agreement to plan and is comfortable going home at this time This document was made in part using voice recognition software. While efforts are made to proofread this document, sound alike and grammatical errors may occur. Departure - Departure Disposition: 01 Home, Self Care Clinical Impression: Qualifiers: Weeks of gestation: 15 weeks Qualified Code(s): Z3A.15 - 15 weeks gestation of Abdominal pain Qualifiers: Abdominal location: right lower quadrant Qualified Code(s): R10.31 - Right lower quadrant pain Condition: Good Instructions: ED Abdominal Pain Unkn Cause Follow-Up: your,doctor in 1 week for recheck [Other] Comments: Your testing does not show any acute abnormalities today. Return if you worsen. Follow-up with your doctor within 1 week for further care. Return sooner if your symptoms worsen. Discharge Date/Time: 03/11/19 13:52
[2019-03-11 11:51] LABS: BASOPHILS % (AUTO) 0.2 %; EOSINOPHILS # (AUTO) 0.1 10^3/uL (0.0-0.7); EOSINOPHILS % (AUTO) 1.7 %; HGB - HEMOGLOBIN 12.8 g/dL (12.0-16.0); LYMPHOCYTES # (AUTO) 2.1 10^3/uL (1.5-3.5); LYMPHOCYTES % (AUTO) 32.1 %; MEAN CORPUSCULAR HEMOGLOBIN 30.5 pg (27.0-31.0); MEAN CORPUSCULAR HGB CONC 33.9 g/dL (32.0-36.0); MEAN PLATELET VOLUME 8.9 fL (7.9-10.8); MONOCYTES # (AUTO) 0.6 10^3/uL (0.0-1.0); MONOCYTES % (AUTO) 8.9 %; NEUTROPHILS # (AUTO) 3.6 10^3/uL (1.5-6.6); NEUTROPHILS % (AUTO) 56.8 %; PLT - PLATELET COUNT 339 10^3/uL (130-450); RED CELL DISTRIBUTION WIDTH 12.5 % (12.0-15.0); WHITE BLOOD COUNT 6.4 x10^3/uL (4.8-10.8)
[2019-03-11 11:55] LABS: BILIRUBIN,URINE NEGATIVE (NEGATIVE); CLARITY,URINE CLEAR (CLEAR); GLUCOSE, URINE (UA) NEGATIVE (NEGATIVE); KETONES,URINE (UA) NEGATIVE (NEGATIVE); LEUKOCYTE ESTERASE, URINE NEGATIVE (NEGATIVE); NITRITE,URINE NEGATIVE (NEGATIVE); OCCULT BLOOD,URINE NEGATIVE (NEGATIVE); PROTEIN,URINE NEGATIVE (NEGATIVE); UROBILINOGEN,URINE 0.2 (NORMAL) E.U./dL (NORMAL)
[2019-03-11 12:03] LABS: ALBUMIN 3.3 g/dL (3.2-5.5); ALBUMIN/GLOBULIN RATIO 0.9 (1.0-2.2); BILIRUBIN,TOTAL 0.5 mg/dL (0.2-1.0); CALCIUM 9.3 mg/dL (8.5-10.3); CREATININE 0.6 mg/dL (0.4-1.0); TOTAL PROTEIN 6.9 g/dL (6.7-8.2)
--- NOTE | 2019-03-11 13:17 | Ultrasound Report ---
Reason: RLQ abd pain, possible appy? Procedure Date: 03/11/2019 Accession Number: [id number] / [id number] Procedure: US - Abdomen Limited CPT Code: Final Report FULL RESULT: EXAM: Limited abdominal/pelvic ultrasound EXAM DATE: 03/11/2019 12:49 PM. CLINICAL HISTORY: RLQ abd pain, possible appendicitis? COMPARISON: ABDOMEN W/O 03/27/2016 10:12 AM ABDOMEN LIMITED 03/26/2016 5:05 PM. TECHNIQUE: Real-time scanning was performed of the right lower quadrant with static images obtained. FINDINGS: APPENDIX: Appendix is not visualized. COMPRESSION TOLERATED: Mild. ASSOCIATED FINDINGS: Lymph Nodes Seen: Yes. Number of Nodes Visualized: 1. Largest Node: 6 mm in short axis, nonenlarged. Free Fluid/Complex Fluid Seen: No. Thickened Bowel Wall Seen: No. Other: None. IMPRESSION: Nonvisualization of the appendix. No secondary signs of acute appendicitis. RADIA
[2019-03-11] MEDS ORDERED: PENICILLIN G BENZATHINE 600,000 UNIT/ML SYRINGE IM STA (13:31)
== END 2019-03-11 13:52 | disposition home or self-care (01) ==
LOC: ED 11:16
DX: O99.89 Other specified diseases and conditions complicating pregnancy, childbirth and the puerperium (principal); R10.31 Right lower quadrant pain; F17.200 Nicotine dependence, unspecified, uncomplicated; Z3A.15 15 weeks gestation of pregnancy
CPT/HCPCS: 36415; 76705; 76815; 80053; 81001; 81003; 83690; 85025; 87086; 99213; 99284

== ENCOUNTER 2019-05-23 17:59 | Emergency (ER) | payer MEDICAID ==
[2019-05-23 18:07] VITALS: BP 112/63
[2019-05-23] MEDS ORDERED: SODIUM CHLORIDE 0.9% 1,000 ML IV ONE (18:43)
[2019-05-23 19:03] LABS: MUDS CUTOFF CONCENTRATIONS CUTOFF CONC BELOW:
[2019-05-23 19:05] LABS: BILIRUBIN,URINE NEGATIVE (NEGATIVE); GLUCOSE, URINE (UA) NEGATIVE (NEGATIVE); KETONES,URINE (UA) NEGATIVE (NEGATIVE); LEUKOCYTE ESTERASE, URINE TRACE (NEGATIVE); NITRITE,URINE NEGATIVE (NEGATIVE); OCCULT BLOOD,URINE NEGATIVE (NEGATIVE); PH,URINE 6.5 PH (5.0-7.5); PROTEIN,URINE NEGATIVE (NEGATIVE); UROBILINOGEN,URINE 1 (NORMAL) E.U./dL (NORMAL)
[2019-05-23 19:07] LABS: BASOPHILS % (AUTO) 0.3 %; EOSINOPHILS # (AUTO) 0.1 10^3/uL (0.0-0.7); EOSINOPHILS % (AUTO) 1.5 %; HGB - HEMOGLOBIN 12.1 g/dL (12.0-16.0); LYMPHOCYTES # (AUTO) 2.3 10^3/uL (1.5-3.5); LYMPHOCYTES % (AUTO) 24.3 %; MEAN CORPUSCULAR HEMOGLOBIN 30.7 pg (27.0-31.0); MEAN CORPUSCULAR HGB CONC 32.9 g/dL (32.0-36.0); MEAN CORPUSCULAR VOLUME 93.4 fL (81.0-99.0); MEAN PLATELET VOLUME 9.2 fL (7.9-10.8); MONOCYTES # (AUTO) 0.7 10^3/uL (0.0-1.0); MONOCYTES % (AUTO) 7.6 %; NEUTROPHILS # (AUTO) 6.3 10^3/uL (1.5-6.6); NEUTROPHILS % (AUTO) 65.9 %; PLT - PLATELET COUNT 304 10^3/uL (130-450); RED BLOOD COUNT 3.94 10^6/uL (4.20-5.40); RED CELL DISTRIBUTION WIDTH 13.4 % (12.0-15.0); WHITE BLOOD COUNT 9.6 x10^3/uL (4.8-10.8)
[2019-05-23 19:09] LABS: CLARITY,URINE CLEAR (CLEAR)
--- NOTE | 2019-05-23 19:16 | ED Physician Documentation ---
PD HPI ABD PAIN - Stated complaint Stated Complaint: VOMITING X3 DAYS, ABD PX - Chief complaint Chief Complaint: Abd Pain - History obtained from History obtained from: Patient - History of Present Illness Timing - onset: How many days ago (3) Timing - details: Gradual onset, Intermittant, Waxing and waning Pain level now: 5 Quality: Other (burning) Location: All over / everywhere Improved by: Other (nothing) Worsened by: Eating (not tolerating any PO including liquids) Associated symptoms: Nausea, Vomiting. No: Fever, Diarrhea, Constipation - Additional information Additional information: , 26 weeks . Presents to ED due to N/V and generalized abdominal burning. Symptoms x 3 days but today says she can't keep anything down including medications, no relief with her zofran Rx. Review of Systems Constitutional: denies: Fever, Chills, Sweats Cardiac: reports: Reviewed and negative Respiratory: reports: Reviewed and negative GI: reports: Abdominal Pain, Nausea, Vomiting. denies: Abdominal Swelling, Constipation, Diarrhea : reports: Now EGA (26) Neurologic: denies: Generalized weakness PD PAST MEDICAL HISTORY - Past Medical History Cardiovascular: None Respiratory: Asthma Neuro: None Endocrine/Autoimmune: None GI: None FAMILY DENTIST: None : None HEENT: None Psych: Depression, Anxiety Musculoskeletal: None Derm: Eczema - Past Surgical History Past Surgical History: No - Present Medications Home Medications: Ambulatory Orders Medication Instructions Recorded Confirmed Metronidazole 500 mg PO BID #14 tablet 05/23/19 - Allergies Allergies/Adverse Reactions: Allergies Allergy/AdvReac Type Severity Reaction Status Date / Time cephalexin [From Keflex] Allergy Rash Verified 05/23/19 18:03 - Social History Does the pt smoke?: Yes Smoking Status: Current every day smoker Does the pt drink ETOH?: Yes Does the pt have substance abuse?: Yes - Immunizations Immunizations are current?: No - POLST Patient has POLST: No PD ED PE NORMAL - Vitals Vital signs reviewed: Yes - General General: Alert and oriented X 3, No acute distress, Well developed/nourished - HEENT HEENT: Moist mucous membranes - Neck Neck: Supple, no meningeal sign - Cardiac Cardiac: RRR, No murmur - Respiratory Respiratory: No respiratory distress, Clear bilaterally - Abdomen Abdomen: Normal bowel sounds, Soft, Non tender, Non distended - Back Back: No CVA TTP - Derm Derm: Normal color, Warm and dry Results - Vitals Vitals: Vital Signs - 24 hr 05/23/19 18:03 Temperature 36.5 C Heart Rate 89 Respiratory 14 Rate Blood Pressure 112/63 O2 Saturation 98 Oxygen O2 Source Room air - Labs Labs: Laboratory Tests 05/23/19 05/23/19 05/23/19 18:50 18:56 18:56 WBC 9.6 RBC 3.94 L Hgb 12.1 Hct 36.8 L MCV 93.4 MCH 30.7 MCHC 32.9 RDW 13.4 Plt Count 304 MPV 9.2 Neut # (Auto) 6.3 Lymph # (Auto) 2.3 [place] # (Auto) 0.7 Eos # (Auto) 0.1 Baso # (Auto) 0.0 Absolute Nucleated RBC 0.00 Nucleated RBC % 0.0 Sodium 135 Potassium 3.5 Chloride 100 L Carbon Dioxide 25 Anion Gap 10.0 BUN 14 Creatinine 0.5 Estimated GFR (MDRD) 154 Glucose 114 H Calcium 9.1 Total Bilirubin 0.4 AST 22 ALT 18 Alkaline Phosphatase 71 Total Protein 7.2 Albumin 3.5 Globulin 3.7 Albumin/Globulin Ratio 0.9 L Lipase 23 Urine Color YELLOW Urine Clarity CLEAR Urine pH 6.5 Ur Specific [place] 1.025 Urine Protein NEGATIVE Urine Glucose (UA) NEGATIVE Urine Ketones NEGATIVE Urine Occult Blood NEGATIVE Urine Nitrite NEGATIVE Urine Bilirubin NEGATIVE Urine Urobilinogen 1 (NORMAL) Ur Leukocyte Esterase TRACE H Urine RBC None Seen Urine WBC 6-10 H Ur Squamous Epith Cells RARE Squamous Urine Bacteria Rare Urine Trichomonas PRESENT H Ur Microscopic Review INDICATED Urine Culture Comments INDICATED Urine Opiates Screen NEGATIVE Ur Oxycodone Screen NEGATIVE Urine Methadone Screen NEGATIVE Ur Propoxyphene Screen NEGATIVE Ur Barbiturates Screen NEGATIVE Ur Tricyclics Screen NEGATIVE Ur Phencyclidine Scrn NEGATIVE Ur Amphetamine Screen NEGATIVE U Methamphetamines Scrn NEGATIVE U Benzodiazepines Scrn NEGATIVE Urine Cocaine Screen NEGATIVE U Cannabinoids Screen NEGATIVE PD MEDICAL DECISION MAKING - ED course Complexity details: reviewed old records, reviewed results, re-evaluated patient, considered differential, d/w patient Departure - Departure Disposition: 01 Home, Self Care Clinical Impression: , Vomiting, Trichomonal infection Condition: Good Instructions: ED Vaginitis Trichomonas, ED Nausea Vomiting Prescriptions: Metronidazole 500 mg PO BID #14 tablet Discharge Date/Time: 05/23/19 21:39
[2019-05-23 19:20] LABS: AMPHETAMINE SCREEN,URINE NEGATIVE (NEGATIVE); BENZODIAZEPINES SCREEN, URINE NEGATIVE (NEGATIVE); COCAINE SCREEN URINE NEGATIVE (NEGATIVE); METHADONE SCREEN, URINE NEGATIVE (NEGATIVE); METHAMPHETAMINES SCREEN, URINE NEGATIVE (NEGATIVE); OPIATE SCREEN, URINE NEGATIVE (NEGATIVE); OXYCODONE SCREEN, URINE NEGATIVE (NEGATIVE); PROPOXYPHENE SCREEN, URINE NEGATIVE (NEGATIVE); TRICYCLIC ANTIDEPRESSANT,URINE NEGATIVE (NEGATIVE)
[2019-05-23 19:21] LABS: ALBUMIN 3.5 g/dL (3.2-5.5); ALBUMIN/GLOBULIN RATIO 0.9 (1.0-2.2); BILIRUBIN,TOTAL 0.4 mg/dL (0.2-1.0); CALCIUM 9.1 mg/dL (8.5-10.3); CREATININE 0.5 mg/dL (0.4-1.0); TOTAL PROTEIN 7.2 g/dL (6.7-8.2)
[2019-05-23 19:21] LABS: RBC,URINE None Seen /HPF (0-5); SQUAMOUS EPITHELIAL CELL,UR RARE Squamous (<= Few); TRICHOMONAS,URINE PRESENT (None Seen)
[2019-05-23 19:22] LABS: BACTERIA,URINE Rare /HPF (None Seen)
[2019-05-23] MEDS ORDERED: METOCLOPRAMIDE 10 MG/2 ML VIAL IVP STA (19:37)
[2019-05-23] MEDS ORDERED: SODIUM CHLORIDE 0.9% 1,000 ML IV STA (19:37)
[2019-05-23] MEDS ORDERED: FAMOTIDINE 20 MG/2 ML VIAL IVP STA (19:37)
== END 2019-05-23 21:39 | disposition home or self-care (01) ==
LOC: ED 17:59
DX: O21.2 Late vomiting of pregnancy (principal); O98.912 Unspecified maternal infectious and parasitic disease complicating pregnancy, second trimester; A59.9 Trichomoniasis, unspecified; O99.332 Smoking (tobacco) complicating pregnancy, second trimester; F17.200 Nicotine dependence, unspecified, uncomplicated; Z3A.26 26 weeks gestation of pregnancy
CPT/HCPCS: 36415; 80053; 80306; 81001; 83690; 85025; 87086; 96361; 96374; 99283; 99284; J2765; 81003

== ENCOUNTER 2019-05-27 12:20 | Outpatient (CLI) | payer MEDICAID ==
[2019-05-27 12:50] LABS: HGB - HEMOGLOBIN 12.3 g/dL (12.0-16.0); MEAN CORPUSCULAR HEMOGLOBIN 30.8 pg (27.0-31.0); MEAN CORPUSCULAR HGB CONC 32.8 g/dL (32.0-36.0); MEAN CORPUSCULAR VOLUME 93.8 fL (81.0-99.0); RED CELL DISTRIBUTION WIDTH 13.3 % (12.0-15.0); WHITE BLOOD COUNT 8.9 x10^3/uL (4.8-10.8)
[2019-05-27 13:22] LABS: HB2 TOTAL 13.1 g/dL; HEMOGLOBIN A1C 0.4 g/dL; HEMOGLOBIN A1C % 4.9 % (4.6-6.2)
[2019-05-27 13:23] LABS: ALBUMIN 3.4 g/dL (3.2-5.5); ALBUMIN/GLOBULIN RATIO 0.9 (1.0-2.2); BILIRUBIN,TOTAL 0.3 mg/dL (0.2-1.0); CALCIUM 8.7 mg/dL (8.5-10.3); CREATININE 0.5 mg/dL (0.4-1.0); TOTAL PROTEIN 7.1 g/dL (6.7-8.2)
--- NOTE | 2019-05-29 04:15 | Ultrasound Report ---
Reason: ANTEPARTUM GROWTH RETARDATION Procedure Date: 05/27/2019 Accession Number: [id number] / [id number] Procedure: US - OB F/U or Repeat CPT Code: Final Report FULL RESULT: EXAM: FOLLOW-UP OBSTETRICAL ULTRASOUND EXAM DATE: 05/27/2019 01:43 PM. CLINICAL HISTORY: ANTEPARTUM GROWTH RETARDATION. COMPARISON: US OB 14 + WEEKS DETAIL ANATOMY SINGLE OR FIRST GESTATION 04/14/2019 11:18 AM. TECHNIQUE: Real-time sonographic evaluation of the fetus performed by the field appraiser. Multiple personal banking representative static images were saved for review. DATING: Established EGA 25 weeks 0 days with CHRISTIANO 09/09/2019 based on stated dates. EGA 26 weeks 4 days with CHRISTIANO 08/29/2019 based on LMP. EGA 25 weeks 2 days with CHRISTIANO 09/07/2019 based on the current ultrasound. GENERAL EVALUATION Bass . Cardiac activity: 147 bpm. movement: Visualized. Presentation: Cephalic. Placenta: Posterior fundal position. Amniotic fluid: Normal. JANET 16.4 cm. MVP 5.1 cm. BIOMETRY Bi-Parietal Diameter (BPD): 6.4 cm, 25 weeks 5 days Head Circumference (HC): 23.2 cm, 25 weeks 2 days Abdominal Circumference (AC): 21.1 cm, 25 weeks 4 days Femur Length (FL): 4.4 cm, 24 weeks 4 days Estimated Weight: 784 g, 49.5 percentile for 25 weeks 0 days. MATERNAL STRUCTURES Cervix: Long and closed, measuring 4.0 cm on transabdominal images. IMPRESSION: 1. Bass live intrauterine with gestational age 25 weeks 0 days based on stated dates. 2. Estimated weight is within expected limits for assigned dating. 3. Normal interval growth compared to 04/14/2019. RADIA
== END 2019-05-27 12:21 | disposition home or self-care (01) ==
LOC: DI 12:20
PROVIDERS: ATTEND Obstetrics & Gynecology
DX: O36.5920 Maternal care for other known or suspected poor fetal growth, second trimester, not applicable or unspecified (principal); O99.012 Anemia complicating pregnancy, second trimester; D64.9 Anemia, unspecified; Z3A.25 25 weeks gestation of pregnancy; Z13.1 Encounter for screening for diabetes mellitus; O09.70 Supervision of high risk pregnancy due to social problems, unspecified trimester; O99.89 Other specified diseases and conditions complicating pregnancy, childbirth and the puerperium; R11.2 Nausea with vomiting, unspecified
CPT/HCPCS: 36415; 76816; 80053; 82728; 83036; 83540; 84466; 85027; 86850

== ENCOUNTER 2019-06-02 13:01 | Emergency (ER) | payer MEDICAID ==
[2019-06-02 14:33] LABS: BILIRUBIN,URINE NEGATIVE (NEGATIVE); GLUCOSE, URINE (UA) NEGATIVE (NEGATIVE); KETONES,URINE (UA) TRACE mg/dL (NEGATIVE); LEUKOCYTE ESTERASE, URINE TRACE (NEGATIVE); NITRITE,URINE NEGATIVE (NEGATIVE); OCCULT BLOOD,URINE NEGATIVE (NEGATIVE); PROTEIN,URINE NEGATIVE (NEGATIVE); UROBILINOGEN,URINE 0.2 (NORMAL) E.U./dL (NORMAL)
[2019-06-02 14:46] LABS: CLARITY,URINE CLOUDY (CLEAR)
[2019-06-02 14:47] LABS: BACTERIA,URINE None Seen /HPF (None Seen); MUCUS,URINE Few Strands; RBC,URINE 0-5 /HPF (0-5); SQUAMOUS EPITHELIAL CELL,UR MANY Squamous (<= Few)
[2019-06-02 14:54] LABS: BASOPHILS % (AUTO) 0.3 %; EOSINOPHILS # (AUTO) 0.1 10^3/uL (0.0-0.7); EOSINOPHILS % (AUTO) 1.1 %; HGB - HEMOGLOBIN 12.5 g/dL (12.0-16.0); LYMPHOCYTES # (AUTO) 2.2 10^3/uL (1.5-3.5); LYMPHOCYTES % (AUTO) 23.3 %; MEAN CORPUSCULAR HEMOGLOBIN 31.8 pg (27.0-31.0); MEAN CORPUSCULAR HGB CONC 33.9 g/dL (32.0-36.0); MEAN CORPUSCULAR VOLUME 93.9 fL (81.0-99.0); MONOCYTES # (AUTO) 0.5 10^3/uL (0.0-1.0); MONOCYTES % (AUTO) 5.7 %; NEUTROPHILS # (AUTO) 6.5 10^3/uL (1.5-6.6); NEUTROPHILS % (AUTO) 69.2 %; PLT - PLATELET COUNT 303 10^3/uL (130-450); RED BLOOD COUNT 3.93 10^6/uL (4.20-5.40); WHITE BLOOD COUNT 9.4 x10^3/uL (4.8-10.8)
[2019-06-02 15:08] LABS: ALBUMIN 3.7 g/dL (3.2-5.5); BILIRUBIN,TOTAL 0.4 mg/dL (0.2-1.0); CALCIUM 8.8 mg/dL (8.5-10.3); CREATININE 0.6 mg/dL (0.4-1.0); TOTAL PROTEIN 7.4 g/dL (6.7-8.2)
[2019-06-02] MEDS ORDERED: ONDANSETRON 4 MG/2 ML VIAL IVP STA (15:10)
[2019-06-02] MEDS ORDERED: SODIUM CHLORIDE 0.9% 1,000 ML IV ONE (15:10)
[2019-06-02] MEDS ORDERED: FAMOTIDINE 20 MG/2 ML VIAL IVP STA (15:16)
--- NOTE | 2019-06-02 15:16 | ED Physician Documentation ---
PD HPI NVD - Stated complaint Stated Complaint: N/V - Chief complaint Chief Complaint: Abd Pain - History obtained from History obtained from: Patient (23-year-old woman has had a lot of problems with vomiting in this and has been vomiting the last 3 days despite taking Zofran and Reglan. She has minimal abdominal pain. No diarrhea. She has had some blood-streaked emesis.) Review of Systems Constitutional: denies: Fever, Chills Respiratory: denies: Dyspnea, Cough GI: denies: Constipation, Diarrhea, Bloody / black stool : denies: Dysuria, Frequency PD PAST MEDICAL HISTORY - Past Medical History Cardiovascular: None Respiratory: Asthma Neuro: None Endocrine/Autoimmune: None GI: None TURNER IN: None : None HEENT: None Psych: Depression, Anxiety Musculoskeletal: None Derm: Eczema - Past Surgical History Past Surgical History: No - Present Medications Home Medications: Ambulatory Orders Medication Instructions Recorded Confirmed Aspirin Chewable [[place] 81 mg PO DAILY 06/02/19 06/02/19 Aspirin] Ferrous Sulfate 324 mg PO DAILY 06/02/19 06/02/19 Metoclopramide [Reglan] 10 mg PO Q6H 06/02/19 06/02/19 Mirtazapine 45 mg PO DAILY 06/02/19 06/02/19 Ondansetron [Zuplenz] 8 mg PO Q4H 06/02/19 06/02/19 Promethazine Supp [Phenergan Supp] 25 mg MS Q6H PRN #20 supp 06/02/19 Sertraline [Zoloft] 100 mg PO DAILY 06/02/19 06/02/19 buprenorphine HCL [Buprenorphine 2 mg SL TID 06/02/19 06/02/19 HCl] - Allergies Allergies/Adverse Reactions: Allergies Allergy/AdvReac Type Severity Reaction Status Date / Time cephalexin [From Keflex] Allergy Rash Verified 06/02/19 13:09 - Social History Does the pt smoke?: Yes Smoking Status: Current every day smoker Does the pt drink ETOH?: Yes Does the pt have substance abuse?: Yes - Immunizations Immunizations are current?: No - POLST Patient has POLST: No PD ED PE NORMAL - Vitals Vital signs reviewed: Yes - General General: Alert and oriented X 3, No acute distress - HEENT HEENT: Pharynx benign - Abdomen Abdomen: Other (Gravid and nontender, note made that she had already had a nonstress test which was normal) - Derm Derm: No rash - Extremities Extremities: No edema, No calf tenderness / cord - Neuro Neuro: Alert and oriented X 3, Normal speech Results - Vitals Vitals: Vital Signs - 24 hr 06/02/19 06/02/19 06/02/19 13:09 13:31 15:30 Temperature 36.8 C 36.5 C Heart Rate 91 88 75 Respiratory 16 16 18 Rate Blood Pressure 123/61 108/66 93/61 O2 Saturation 98 98 06/02/19 17:48 Temperature Heart Rate 71 Respiratory 18 Rate Blood Pressure 104/73 O2 Saturation 100 Oxygen O2 Source Room air - Labs Labs: Laboratory Tests 06/02/19 06/02/19 06/02/19 13:45 14:47 14:47 WBC 9.4 RBC 3.93 L Hgb 12.5 Hct 36.9 L MCV 93.9 MCH 31.8 H MCHC 33.9 RDW 13.0 Plt Count 303 MPV 9.0 Neut # (Auto) 6.5 Lymph # (Auto) 2.2 [place] # (Auto) 0.5 Eos # (Auto) 0.1 Baso # (Auto) 0.0 Absolute Nucleated RBC 0.00 Nucleated RBC % 0.0 Sodium 138 Potassium 4.1 Chloride 103 Carbon Dioxide 24 Anion Gap 11.0 BUN 15 Creatinine 0.6 Estimated GFR (MDRD) 125 Glucose 94 Calcium 8.8 Total Bilirubin 0.4 AST 18 ALT 17 Alkaline Phosphatase 78 Total Protein 7.4 Albumin 3.7 Globulin 3.7 Albumin/Globulin Ratio 1.0 Lipase 23 Urine Color YELLOW Urine Clarity CLOUDY Urine pH 6.0 Ur Specific [place] >=1.030 H Urine Protein NEGATIVE Urine Glucose (UA) NEGATIVE Urine Ketones TRACE Urine Occult Blood NEGATIVE Urine Nitrite NEGATIVE Urine Bilirubin NEGATIVE Urine Urobilinogen 0.2 (NORMAL) Ur Leukocyte Esterase TRACE H Urine RBC 0-5 Urine WBC 0-3 Ur Squamous Epith Cells MANY Squamous H Urine Bacteria None Seen Urine Mucus Few Strands Ur Microscopic Review INDICATED Urine Culture Comments NOT INDICATED PD MEDICAL DECISION MAKING - ED course ED course: 23-year-old woman with vomiting in , had a nonstress test that was normal. Abdominal exam was benign. Labs were unremarkable. Feeling better after IV fluids and Zofran and requesting discharge. Departure - Departure Disposition: 01 Home, Self Care Clinical Impression: Vomiting Condition: Good Record reviewed to determine appropriate education?: Yes Instructions: ED Nausea Vomiting Prescriptions: Promethazine Supp [Phenergan Supp] 25 mg MS Q6H PRN #20 supp PRN Reason: Nausea / Vomiting Comments: Return anytime for new or worsening symptoms, follow-up with your OB, next available appointment. Stop taking Reglan/metoclopramide with a new nausea medicine. Discharge Date/Time: 06/02/19 17:48
[2019-06-02 17:49] VITALS: BP 104/73
== END 2019-06-02 17:48 | disposition home or self-care (01) ==
LOC: ED 13:01
DX: O21.9 Vomiting of pregnancy, unspecified (principal); O99.330 Smoking (tobacco) complicating pregnancy, unspecified trimester; Z3A.00 Weeks of gestation of pregnancy not specified
CPT/HCPCS: 36415; 80053; 81001; 81003; 83690; 85025; 87086; 96374; 96375; 99284

== ENCOUNTER 2019-06-08 16:55 | Outpatient (CLI) | payer MEDICAID | END 2019-06-08 16:56 | disposition critical access hospital (66) | LOC: EMS 16:55 | PROVIDERS: ATTEND Surgery | DX: O99.89 Other specified diseases and conditions complicating pregnancy, childbirth and the puerperium (principal); R10.9 Unspecified abdominal pain | CPT/HCPCS: A0425; A0429 ==

== ENCOUNTER 2019-06-08 17:25 | Outpatient (CLI) | payer MEDICAID ==
[2019-06-08 17:33] VITALS: BP 144/71
[2019-06-08 18:39] LABS: RUPTURE OF MEMBRANES PLUS NEGATIVE (NEGATIVE)
--- NOTE | 2019-06-08 20:30 | Ultrasound Report ---
Reason: cervical length Procedure Date: 06/08/2019 Accession Number: [id number] / [id number] Procedure: US - OB Transvaginal CPT Code: Final Report FULL RESULT: EXAM: LIMITED OBSTETRICAL ULTRASOUND EXAM DATE: 06/08/2019 07:00 PM. CLINICAL HISTORY: Fluid discharge. Check cervical length. COMPARISON: None. TECHNIQUE: Real-time sonographic evaluation of the fetus performed by the automotive light mechanic. Multiple patient registration representative static images were saved for review. Additional transvaginal imaging to more accurately evaluate cervical length/placental position/etc. DATING: Established EGA 26 weeks 5 days with CHRISTIANO 09/09/2019. GENERAL EVALUATION Bass . Cardiac activity: 136 bpm. movement: Visualized. Presentation: Cephalic. Placenta: Posterior fundal position. Amniotic fluid: Normal. JANET 17.2 cm. MVP 6.7 cm. MATERNAL STRUCTURES Transvaginal cervical evaluation shows a closed length of 2.9 cm with mild funneling. IMPRESSION: 1. Bass live intrauterine with gestational age 26 weeks 5 days based on 09/09/2019. 2. Cervix demonstrates mild funneling, with closed portion 2.9 cm long. RADIA
--- NOTE | 2019-06-08 20:51 | PROVIDER PROGRESS NOTE ---
- HPI Chief Complaint: Other (Patient is a 23 yo at 26+5 wga base don 9 week us here with severe abd pain complicated by recovery from PSA; s/p inpatient rehab. Denies recent meth use and offerst oundergo urinary catheterization to complete MUDS Has had mild abd pain over the last few days that worsened today. HAs had N/V. Reports diarrhea in the last 24 hours. Has had IC in the last 24 hours. No dyspareuia or postcoital bleeding. Has had trich this , not yet completed treatment due to N/V. Endorses FM.) Current : Current EDU 09/09/19 Gestation 26 Weeks and 5 Days 5 Para 1 Vital Signs Temperature 99.3 F 06/08/19 17:32 Heart Rate 93 06/08/19 17:32 Respiratory Rate 18 06/08/19 17:32 Blood Pressure 144/71 H 06/08/19 17:32 Temperature 99.3 F 06/08/19 18:12 Heart Rate 91 06/08/19 18:12 Respiratory Rate 18 06/08/19 18:12 Blood Pressure 144/71 H 06/08/19 18:12 O2 Saturation - Exam GEN: Mild distress CV: RR RESP: normla effort ABD: TTP at RLQ, no TTP at fundus of left aspect of uterus ADVANCED DEVELOPER: NEFG. N CMT PELVIC US: informal read shows JANET 17 TVCL with length > 2.5 cm, formal read pending FFN neg UA and MUDS pending (patient unable to void 2/2 constant leakge; offers to undergo catheterization - Procedures OB Procedure Performed: NST Diagnosis/Indication for NST: labor NST Procedure: 140 mod compa 10x10 accels--> AGA TOCO: quiet FFN neg ROM+ neg Service Date of procedure: 06/08/19 Procedure Details: Ruled out labor: TVCL appropriate, FFN negative, JANET wnl, TOCO quiet GCCT and vaginitis panel pending Patient denies meth use and offered to undergo catheterization to obtain sample for testing Presentation concerning for appendicitis Sending to ER for evaluation
[2019-06-08 22:34] LABS: TRICHOMONAS VAGINALIS DNA POSITIVE (NEGATIVE)
== END 2019-06-08 19:52 ==
LOC: WFO 17:25 → FBP 17:26 → WFO 19:52
PROVIDERS: ATTEND Obstetrics & Gynecology
DX: O99.89 Other specified diseases and conditions complicating pregnancy, childbirth and the puerperium (principal); R10.31 Right lower quadrant pain; O98.312 Other infections with a predominantly sexual mode of transmission complicating pregnancy, second trimester; A59.9 Trichomoniasis, unspecified; Z3A.26 26 weeks gestation of pregnancy
CPT/HCPCS: 76817; 80306; 82731; 84112; 87491; 87591; 87661; 99215

== ENCOUNTER 2019-06-08 19:40 | Emergency (ER) | payer MEDICAID ==
[2019-06-08 20:49] LABS: BILIRUBIN,URINE NEGATIVE (NEGATIVE); GLUCOSE, URINE (UA) NEGATIVE (NEGATIVE); KETONES,URINE (UA) TRACE mg/dL (NEGATIVE); LEUKOCYTE ESTERASE, URINE NEGATIVE (NEGATIVE); NITRITE,URINE NEGATIVE (NEGATIVE); OCCULT BLOOD,URINE TRACE-INTA (NEGATIVE); PH,URINE 6.5 PH (5.0-7.5); PROTEIN,URINE NEGATIVE (NEGATIVE); UROBILINOGEN,URINE 0.2 (NORMAL) E.U./dL (NORMAL)
[2019-06-08 20:54] LABS: CLARITY,URINE CLEAR (CLEAR)
[2019-06-08 22:10] LABS: BASOPHILS # (AUTO) 0.1 10^3/uL (0.0-0.1); BASOPHILS % (AUTO) 0.5 %; EOSINOPHILS # (AUTO) 0.1 10^3/uL (0.0-0.7); EOSINOPHILS % (AUTO) 0.7 %; HGB - HEMOGLOBIN 12.4 g/dL (12.0-16.0); LYMPHOCYTES # (AUTO) 2.6 10^3/uL (1.5-3.5); LYMPHOCYTES % (AUTO) 25.9 %; MEAN CORPUSCULAR HEMOGLOBIN 31.7 pg (27.0-31.0); MEAN CORPUSCULAR HGB CONC 34.1 g/dL (32.0-36.0); MEAN CORPUSCULAR VOLUME 93.1 fL (81.0-99.0); MEAN PLATELET VOLUME 9.1 fL (7.9-10.8); MONOCYTES # (AUTO) 0.7 10^3/uL (0.0-1.0); MONOCYTES % (AUTO) 6.5 %; NEUTROPHILS # (AUTO) 6.7 10^3/uL (1.5-6.6); NEUTROPHILS % (AUTO) 65.8 %; PLT - PLATELET COUNT 298 10^3/uL (130-450); RED BLOOD COUNT 3.91 10^6/uL (4.20-5.40); RED CELL DISTRIBUTION WIDTH 13.1 % (12.0-15.0); WHITE BLOOD COUNT 10.1 x10^3/uL (4.8-10.8)
[2019-06-08 22:23] LABS: ALBUMIN 3.4 g/dL (3.2-5.5); BILIRUBIN,TOTAL 0.4 mg/dL (0.2-1.0); CALCIUM 8.5 mg/dL (8.5-10.3); CREATININE 0.5 mg/dL (0.4-1.0); TOTAL PROTEIN 6.9 g/dL (6.7-8.2)
[2019-06-08] MEDS ORDERED: SODIUM CHLORIDE 0.9% 1,000 ML IV ONE (23:09)
--- NOTE | 2019-06-08 23:20 | ED Physician Documentation ---
PD HPI FEMALE - Stated complaint Stated Complaint: ABD PX - Chief complaint Chief Complaint: Abd Pain - History obtained from History obtained from: Patient, Family - History of Present Illness Timing - onset: How many days ago (4) Timing - duration: Days (4) Timing - details: Gradual onset, Still present Associated symptoms: Abdominal pain, Vaginal bleeding Contributing factors: OB-FAMILY INTERVENTION SPECIALIST History: G (3), P (1), Miscarriage(s) (1) Similar symptoms before: Diagnosis (ovarian cyst) Recently seen: Other Review of Systems Constitutional: denies: Fever Eyes: denies: Decreased vision Ears: denies: Ear pain Nose: denies: Congestion Throat: denies: Sore throat Cardiac: denies: Chest pain / pressure, Palpitations Respiratory: denies: Dyspnea, Cough GI: reports: Abdominal Pain, Nausea : reports: Vaginal bleeding. denies: Dysuria, Frequency Skin: denies: Rash Musculoskeletal: denies: Neck pain, Back pain PD PAST MEDICAL HISTORY - Past Medical History Past Medical History: Yes Cardiovascular: None Respiratory: Asthma Neuro: None Endocrine/Autoimmune: None GI: None FAMILY INTERVENTION SPECIALIST: None : None HEENT: None Psych: Depression, Anxiety Musculoskeletal: None Derm: Eczema - Past Surgical History Past Surgical History: No - Present Medications Home Medications: Ambulatory Orders Medication Instructions Recorded Confirmed Aspirin Chewable [[place] 81 mg PO DAILY 06/02/19 06/02/19 Aspirin] Ferrous Sulfate 324 mg PO DAILY 06/02/19 06/02/19 Metoclopramide [Reglan] 10 mg PO Q6H 06/02/19 06/02/19 Mirtazapine 45 mg PO DAILY 06/02/19 06/02/19 Ondansetron [Zuplenz] 8 mg PO Q4H 06/02/19 06/02/19 Promethazine Supp [Phenergan Supp] 25 mg [place] Q6H PRN #20 supp 06/02/19 Sertraline [Zoloft] 100 mg PO DAILY 06/02/19 06/02/19 buprenorphine HCL [Buprenorphine 2 mg SL TID 06/02/19 06/02/19 HCl] - Allergies Allergies/Adverse Reactions: Allergies Allergy/AdvReac Type Severity Reaction Status Date / Time cephalexin [From Keflex] Allergy Rash Verified 06/08/19 20:00 - Social History Does the pt smoke?: Yes Smoking Status: Current every day smoker Does the pt drink ETOH?: Yes Does the pt have substance abuse?: Yes - Immunizations Immunizations are current?: No - POLST Patient has POLST: No PD ED PE NORMAL - Vitals Vital signs reviewed: Yes (normal ) - General General: Alert and oriented X 3, No acute distress, Well developed/nourished - HEENT HEENT: Atraumatic, PERRL, EOMI - Neck Neck: Supple, no meningeal sign, No bony TTP - Cardiac Cardiac: RRR, No murmur - Respiratory Respiratory: No respiratory distress, Clear bilaterally - Abdomen Abdomen: Soft, Other (gravid uterus with RLQ tenderness without garding. No uterine tenderness is appreciated. There is some pain referred to the RLQ with palpation of the uterus. ) - Back Back: No CVA TTP, No spinal TTP - Derm Derm: Normal color, Warm and dry, No rash - Extremities Extremities: No deformity, No edema - Neuro Neuro: Alert and oriented X 3, mechanic chief 2-12 intact, No motor deficit, No sensory deficit, Normal speech Eye Opening: Spontaneous Motor: Obeys Commands Verbal: Oriented GCS Score: 15 - Psych Psych: Normal mood, Normal affect Results - Vitals Vitals: Vital Signs - 24 hr 06/08/19 06/08/19 06/08/19 22:16 23:26 23:46 Temperature Heart Rate 87 Respiratory 16 16 17 Rate Blood Pressure 119/71 O2 Saturation 99 06/09/19 06/09/19 06/09/19 00:01 00:15 00:49 Temperature Heart Rate 79 86 Respiratory 16 16 18 Rate Blood Pressure 108/78 120/87 H O2 Saturation 99 100 06/09/19 06/09/19 06/09/19 02:34 08:45 10:40 Temperature 36.3 C L Heart Rate 87 77 72 Respiratory 16 12 16 Rate Blood Pressure 123/73 113/75 103/68 O2 Saturation 100 100 99 06/09/19 06/09/19 12:21 13:44 Temperature Heart Rate 64 64 Respiratory 16 16 Rate Blood Pressure 98/77 100/60 O2 Saturation 100 100 Oxygen O2 Source Room air - Labs Labs: Laboratory Tests 06/08/19 06/08/19 06/08/19 20:41 20:41 22:04 WBC 10.1 RBC 3.91 L Hgb 12.4 Hct 36.4 L MCV 93.1 MCH 31.7 H MCHC 34.1 RDW 13.1 Plt Count 298 MPV 9.1 Neut # (Auto) 6.7 H Lymph # (Auto) 2.6 [place] # (Auto) 0.7 Eos # (Auto) 0.1 Baso # (Auto) 0.1 Absolute Nucleated RBC 0.00 Nucleated RBC % 0.0 Sodium Potassium Chloride Carbon Dioxide Anion Gap BUN Creatinine Estimated GFR (MDRD) Glucose Calcium Total Bilirubin AST ALT Alkaline Phosphatase Total Protein Albumin Globulin Albumin/Globulin Ratio Lipase Urine Color YELLOW Urine Clarity CLEAR Urine pH 6.5 Ur Specific [place] 1.025 Urine Protein NEGATIVE Urine Glucose (UA) NEGATIVE Urine Ketones TRACE Urine Occult Blood TRACE-INTA Urine Nitrite NEGATIVE Urine Bilirubin NEGATIVE Urine Urobilinogen 0.2 (NORMAL) Ur Leukocyte Esterase NEGATIVE Ur Microscopic Review NOT INDICATED Urine Culture Comments NOT INDICATED Urine Opiates Screen NEGATIVE Ur Oxycodone Screen NEGATIVE Urine Methadone Screen NEGATIVE Ur Propoxyphene Screen NEGATIVE Ur Barbiturates Screen NEGATIVE Ur Tricyclics Screen NEGATIVE Ur Phencyclidine Scrn NEGATIVE Ur Amphetamine Screen NEGATIVE U Methamphetamines Scrn NEGATIVE U Benzodiazepines Scrn NEGATIVE Urine Cocaine Screen NEGATIVE U Cannabinoids Screen POSITIVE H 06/08/19 22:04 WBC RBC Hgb Hct MCV MCH MCHC RDW Plt Count MPV Neut # (Auto) Lymph # (Auto) [place] # (Auto) Eos # (Auto) Baso # (Auto) Absolute Nucleated RBC Nucleated RBC % Sodium 136 Potassium 3.1 L Chloride 105 Carbon Dioxide 23 Anion Gap 8.0 BUN 10 Creatinine 0.5 Estimated GFR (MDRD) 154 Glucose 95 Calcium 8.5 Total Bilirubin 0.4 AST 22 ALT 24 Alkaline Phosphatase 79 Total Protein 6.9 Albumin 3.4 Globulin 3.5 Albumin/Globulin Ratio 1.0 Lipase 27 Urine Color Urine Clarity Urine pH Ur Specific [place] Urine Protein Urine Glucose (UA) Urine Ketones Urine Occult Blood Urine Nitrite Urine Bilirubin Urine Urobilinogen Ur Leukocyte Esterase Ur Microscopic Review Urine Culture Comments Urine Opiates Screen Ur Oxycodone Screen Urine Methadone Screen Ur Propoxyphene Screen Ur Barbiturates Screen Ur Tricyclics Screen Ur Phencyclidine Scrn Ur Amphetamine Screen U Methamphetamines Scrn U Benzodiazepines Scrn Urine Cocaine Screen U Cannabinoids Screen - Rads (name of study) abd u/s lmt Radiology: Prelim report reviewed (Impression: Nonvisualization of the appendix. Small amount of free fluid in the right lower quadrant. Right lower quadrant adenopathy. Complicated 1.3 cm right ovarian cyst.), EMP read indepedently, See rad report PD MEDICAL DECISION MAKING - ED course Complexity details: reviewed old records, reviewed results, re-evaluated patient, considered differential, d/w patient, d/w family ED course: 23-year-old female 26 weeks with vaginal bleeding and what appeared to be a fluid leak which was not confirmed. She has developed right lower quadrant pain over the past 4 days and ultrasound here is unable to identify the appendix. There is no bowel wall thickening there is free fluid in the right lower quadrant and adenopathy. I consulted the OB [place] and she recommended we get CT or MRI to rule out appendicitis. I consulted the radiologist Dr. Clarke and he recommended MRI if the patient's condition allowed waiting an additional 4 hours for morning. She has had symptoms for 4 days without progression here in the ED and we elected to wait til morning to obtain MRI. Ultimately she was not able to hold still for the scan, her symptoms resolved and she was discharged to home. Departure - Departure Disposition: 01 Home, Self Care Clinical Impression: Abdominal pain in Qualifiers: Trimester: second trimester Qualified Code(s): O26.892 - Other specified related conditions, second trimester Condition: Good Instructions: ED Abdominal Pain Unkn Cause Follow-Up: your,OB in 3 days [Other] Comments: Follow-up with your mixer crane operator within the next 3 days. Return if you worsen. If your symptoms recur or worsen, return for repeat evaluation. Discharge Date/Time: 06/09/19 13:46
--- NOTE | 2019-06-09 01:13 | Ultrasound Report ---
Reason: RLQ pain 26wks Procedure Date: 06/09/2019 Accession Number: [id number] / [id number] Procedure: US - Abdomen Limited CPT Code: Final Report FULL RESULT: EXAM: Limited ABDOMEN ultrasound EXAM DATE: 06/09/2019 12:40 AM. CLINICAL HISTORY: RLQ pain 26wks . COMPARISON: ABDOMEN LIMITED 03/11/2019 12:21 PM. TECHNIQUE: Real-time scanning was performed of the right lower quadrant with static images obtained. FINDINGS: APPENDIX: Not seen. ASSOCIATED FINDINGS: Lymph Nodes Seen: Yes Number of Nodes Visualized: 3 Largest Node: 1.5 x 1.0 x 0.9 cm Free Fluid/Complex Fluid Seen: Yes, free Size: 1.5 x 1.5 x 0.4 cm Location of Free Fluid: Right lower quadrant Thickened Bowel Wall Seen: No Other: 1.3 cm complicated right ovarian cyst. Viable intrauterine gestation, with heart rate 143 bpm. IMPRESSION: Nonvisualization of the appendix. Small amount of free fluid in the right lower quadrant. Right lower quadrant adenopathy. Complicated 1.3 cm right ovarian cyst. RADIA
[2019-06-09] MEDS ORDERED: ONDANSETRON 4 MG/2 ML VIAL IVP STA ×2 (03:40→07:51)
[2019-06-09] MEDS ORDERED: diphenhydrAMINE 25 MG CAPSULE PO STA (03:50)
[2019-06-09] MEDS ORDERED: SODIUM CHLORIDE 0.9% 1,000 ML IV ONE (07:51)
[2019-06-09 08:46] LABS: AMPHETAMINE SCREEN,URINE NEGATIVE (NEGATIVE); BENZODIAZEPINES SCREEN, URINE NEGATIVE (NEGATIVE); COCAINE SCREEN URINE NEGATIVE (NEGATIVE); METHADONE SCREEN, URINE NEGATIVE (NEGATIVE); METHAMPHETAMINES SCREEN, URINE NEGATIVE (NEGATIVE); MUDS CUTOFF CONCENTRATIONS CUTOFF CONC BELOW:; OPIATE SCREEN, URINE NEGATIVE (NEGATIVE); OXYCODONE SCREEN, URINE NEGATIVE (NEGATIVE); PROPOXYPHENE SCREEN, URINE NEGATIVE (NEGATIVE); TRICYCLIC ANTIDEPRESSANT,URINE NEGATIVE (NEGATIVE)
--- NOTE | 2019-06-09 12:59 | MRI Report ---
Reason: RLQ pain Procedure Date: 06/09/2019 Accession Number: [id number] / [id number] Procedure: MRI - Abdomen W/O CPT Code: Final Report FULL RESULT: EXAM: MR ABDOMEN WITHOUT CONTRAST EXAM DATE: 06/09/2019 12:23 PM. CLINICAL HISTORY: Right lower quadrant pain. Vaginal bleeding. . Right lower quadrant pain for 4 days. COMPARISON: ABDOMEN W/O 03/27/2016 10:12 AM ABDOMEN LIMITED 06/09/2019 12:11 AM OB TRANSVAGINAL 06/08/2019 7:11 PM. TECHNIQUE: Multiplanar breath-hold T1, T2, and DWI sequences were attempted through the abdomen on an MR scanner. No intravenous contrast given. The patient became claustrophobic and refused to continue. Therefore, only the survey and coronal T2-weighted sequences were obtained. FINDINGS: Lung Bases: The visualized lung bases are clear. Liver: Limited assessment of the visualized liver parenchyma is unremarkable. Gallbladder: Visualized gallbladder appears normal. Pancreas: Only small portions of the pancreas are visualized and limited in detail. Otherwise the majority of the pancreas is not well seen. Kidneys and Adrenals: Kidneys appear normal on the coronal images without clear evidence for perinephric edema. Adrenals: Visualized adrenal glands are unremarkable. Spleen: Included portions of the spleen are unremarkable. Bowel: Included portions of the small bowel and colon are unremarkable although displaced cephalad. A portion of the appendix may be visualized on coronal images 23-25 projected over the right mid abdomen although not definitively. Retroperitoneum: Visualized retroperitoneal structures are unremarkable. Intrauterine gestation is noted although incompletely assessed on this study. No osseous abnormalities are seen. Urinary bladder where visualized is unremarkable. IMPRESSION: 1. Nondiagnostic MRI assessment of the abdomen and pelvis as the patient became claustrophobic and refused to continue the study and therefore only one diagnostic limited sequence was performed. RADIA
--- NOTE | 2019-06-09 13:24 | ED Physician Documentation ---
ED Addendum - Addendum Addendum: 06/09/19 13:23 Patient signed out to me awaiting an MRI for possible appendicitis. Her symptoms actually resolved in the emergency department. She is hungry and tolerating p.o. without difficulty. She was unable to complete the MRI secondary to claustrophobia. Her abdomen remained soft, nontender nondistended on serial exam. No evidence of appendicitis at this time. Patient counseled regarding signs and symptoms for which I believe and urgent re-evaluation would be necessary. Patient with good understanding of and agreement to plan and is comfortable going home at this time This document was made in part using voice recognition software. While efforts are made to proofread this document, sound alike and grammatical errors may occur. Departure - Departure Disposition: 01 Home, Self Care Clinical Impression: Abdominal pain in Qualifiers: Trimester: second trimester Qualified Code(s): O26.892 - Other specified pregn shara related conditions, second trimester; R10.9 - Unspecified abdominal pain Condition: Good Instructions: ED Abdominal Pain Unkn Cause Follow-Up: your,OB in 3 days [Other] Comments: Follow-up with your account liaison within the next 3 days. Return if you worsen. If your symptoms recur or worsen, return for repeat evaluation.
[2019-06-09 13:46] VITALS: BP 100/60
== END 2019-06-09 13:46 | disposition home or self-care (01) ==
LOC: ED 19:40
DX: O99.89 Other specified diseases and conditions complicating pregnancy, childbirth and the puerperium (principal); R10.31 Right lower quadrant pain; O46.92 Antepartum hemorrhage, unspecified, second trimester; O34.82 Maternal care for other abnormalities of pelvic organs, second trimester; N83.201 Unspecified ovarian cyst, right side; O99.330 Smoking (tobacco) complicating pregnancy, unspecified trimester; O98.312 Other infections with a predominantly sexual mode of transmission complicating pregnancy, second trimester; A59.9 Trichomoniasis, unspecified; Z3A.26 26 weeks gestation of pregnancy
CPT/HCPCS: 36415; 74181; 76705; 76817; 80053; 80306; 81003; 82731; 83690; 84112; 85025; 87491; 87591; 87661; 96361; 96374; 96376; 99215; 99283; 99284; A9270; 81001; 87086

== ENCOUNTER 2019-06-28 07:00 | Outpatient (CLI) | payer MEDICAID ==
[2019-06-29 20:32] LABS: CANDIDA GROUP DNA POSITIVE (NEGATIVE); CANDIDA KRUSEI DNA NEGATIVE (NEGATIVE); TRICHOMONAS VAGINALIS DNA POSITIVE (NEGATIVE)
[2019-06-29 21:24] LABS: TRICHOMONAS VAGINALIS DNA POSITIVE (NEGATIVE)
== END 2019-06-28 23:59 | disposition home or self-care (01) ==
LOC: LAB.R 07:00
PROVIDERS: ATTEND Obstetrics & Gynecology
DX: O09.70 Supervision of high risk pregnancy due to social problems, unspecified trimester (principal); O26.899 Other specified pregnancy related conditions, unspecified trimester; R10.2 Pelvic and perineal pain; N89.8 Other specified noninflammatory disorders of vagina; Z3A.00 Weeks of gestation of pregnancy not specified
CPT/HCPCS: 82731; 87491; 87591; 87661; 87801

== ENCOUNTER 2019-07-01 16:12 | Emergency (ER) | payer MEDICAID ==
[2019-07-01 17:00] LABS: BILIRUBIN,URINE NEGATIVE (NEGATIVE); GLUCOSE, URINE (UA) NEGATIVE (NEGATIVE); KETONES,URINE (UA) NEGATIVE (NEGATIVE); LEUKOCYTE ESTERASE, URINE SMALL (NEGATIVE); NITRITE,URINE NEGATIVE (NEGATIVE); OCCULT BLOOD,URINE NEGATIVE (NEGATIVE); PH,URINE 6.5 PH (5.0-7.5); PROTEIN,URINE NEGATIVE (NEGATIVE); UROBILINOGEN,URINE 0.2 (NORMAL) E.U./dL (NORMAL)
[2019-07-01] MEDS ORDERED: ALBUTEROL NEB 2.5 MG/3 ML INH STA (17:10)
[2019-07-01] MEDS ORDERED: SODIUM CHLORIDE 0.9% 1,000 ML IV ONE (17:10)
[2019-07-01 17:11] LABS: BACTERIA,URINE Many /HPF (None Seen); CLARITY,URINE CLOUDY (CLEAR); SQUAMOUS EPITHELIAL CELL,UR MANY Squamous (<= Few); YEAST,URINE PRESENT
[2019-07-01] MEDS ORDERED: predniSONE 20 MG TABLET PO STA (17:11)
--- NOTE | 2019-07-01 17:12 | ED Physician Documentation ---
History of Present Illness - Stated complaint Stated Complaint: SOA, CP, COUGH, INHALER NOT WORKING - Chief complaint Chief Complaint: General - History obtained from History obtained from: Patient - History of Present Illness Timing: How many weeks ago (2-3) Pain level max: 0 Pain level now: 0 - Additonal information Additional information: 23-year-old female presents to the emergency department stating that she is approximately 31 weeks . She states she has not had any decreased movement. No vaginal bleeding. No discharge. She states she has had a cough for the past several weeks. She is using her inhaler without relief. Is not using a spacer. No fevers. Occasionally feels warm. She feels lightheaded with standing and has vomited once or twice. Better with rest and worse with exertion. Review of Systems Ten Systems: 10 systems reviewed and negative Constitutional: reports: Chills. denies: Fever Nose: reports: Rhinorrhea / runny nose. 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 Has not started abx yet. - Past Surgical History Past Surgical History: No - Present Medications Home Medications: Ambulatory Orders Medication Instructions Recorded Confirmed Aspirin Chewable [[place] 81 mg PO DAILY 06/02/19 07/01/19 Aspirin] Ferrous Sulfate 324 mg PO DAILY 06/02/19 07/01/19 Metoclopramide [Reglan] 10 mg PO Q6H 06/02/19 07/01/19 Mirtazapine 45 mg PO DAILY 06/02/19 07/01/19 Ondansetron [Zuplenz] 8 mg PO Q4H 06/02/19 07/01/19 Promethazine Supp [Phenergan Supp] [address] Q6H PRN #20 supp 06/02/19 07/01/19 Sertraline [Zoloft] 100 mg PO DAILY 06/02/19 07/01/19 Albuterol Sulf [Ventolin Hfa 1 - 2 puffs INH Q4HR PRN #1 inhaler 07/01/19 Inhaler] Nitrofurantoin Monohyd/M-Cryst 100 mg PO BID #10 capsule 07/01/19 [Macrobid 100 mg Capsule] metroNIDAZOLE [Flagyl] 1 tab BID 07/01/19 07/01/19 predniSONE [Prednisone] 40 mg PO DAILY #10 tablet 07/01/19 - Allergies Allergies/Adverse Reactions: Allergies Allergy/AdvReac Type Severity Reaction Status Date / Time cephalexin [From Keflex] Allergy Rash Verified 07/01/19 16:31 - Social History Does the pt smoke?: Yes Smoking Status: Current every day smoker Does the pt drink ETOH?: Yes Does the pt have substance abuse?: Yes Substance Use and Type: Marijuana, Meth - Immunizations Immunizations are current?: No - POLST Patient has POLST: No PD ED PE NORMAL - Vitals Vital signs reviewed: Yes - General General: Alert and oriented X 3, No acute distress, Well developed/nourished - HEENT HEENT: Ears normal, Moist mucous membranes, Pharynx benign - Neck Neck: Supple, no meningeal sign - Cardiac Cardiac: RRR - Respiratory Respiratory: No respiratory distress, Other (Mildly diminished breath sounds bilaterally) - Abdomen Abdomen: Soft, Non tender, Non distended - Derm Derm: Warm and dry, No rash - Extremities Extremities: No edema - Neuro Neuro: Alert and oriented X 3 - Psych Psych: Normal mood, Normal affect Results - Vitals Vitals: Vital Signs - 24 hr 07/01/19 07/01/19 07/01/19 16:19 17:37 18:48 Temperature 36.7 C 36.3 C L Heart Rate 102 H 101 H 76 Respiratory 17 22 16 Rate Blood Pressure 127/71 120/70 O2 Saturation 97 98 Oxygen O2 Source Room air - Labs Labs: Laboratory Tests 07/01/19 07/01/19 07/01/19 16:50 17:20 17:20 WBC 9.3 RBC 3.76 L Hgb 11.6 L Hct 34.6 L MCV 92.0 MCH 30.9 MCHC 33.5 RDW 12.3 Plt Count 338 MPV 9.3 Neut # (Auto) 6.2 Lymph # (Auto) 2.3 [place] # (Auto) 0.7 Eos # (Auto) 0.1 Baso # (Auto) 0.0 Absolute Nucleated RBC 0.00 Nucleated RBC % 0.0 Sodium 135 Potassium 3.5 Chloride 102 Carbon Dioxide 23 Anion Gap 10.0 BUN 12 Creatinine 0.6 Estimated GFR (MDRD) 125 Glucose 116 H Calcium 8.5 Total Bilirubin 0.2 AST 18 ALT 28 Alkaline Phosphatase 113 Total Protein 6.5 L Albumin 2.7 L Globulin 3.8 Albumin/Globulin Ratio 0.7 L Lipase 29 Urine Color YELLOW Urine Clarity CLOUDY Urine pH 6.5 Ur Specific [place] 1.025 Urine Protein NEGATIVE Urine Glucose (UA) NEGATIVE Urine Ketones NEGATIVE Urine Occult Blood NEGATIVE Urine Nitrite NEGATIVE Urine Bilirubin NEGATIVE Urine Urobilinogen 0.2 (NORMAL) Ur Leukocyte Esterase SMALL H Urine RBC 6-10 H Urine WBC 11-25 H Ur Squamous Epith Cells MANY Squamous H Urine Bacteria Many H Urine Yeast PRESENT Ur Microscopic Review INDICATED Urine Culture Comments NOT INDICATED PD MEDICAL DECISION MAKING - ED course Complexity details: reviewed results, re-evaluated patient, considered differential, d/w patient ED course: heart tones 142 bpm. OB came and evaluated the patient as well. Patient feels better after nebulizer treatment. No evidence of pneumonia. No fevers. Feels better after IV fluids as well. She is well-appearing, nontoxic. Urinalysis is likely contaminated, but as she is , we will treat this. We will also place her on steroids for home. No evidence of pulmonary embolus. Patient counseled regarding signs and symptoms for which I believe and urgent re-evaluation would be necessary. Patient with good understanding of and agreement to plan and is comfortable going home at this time This document was made in part using voice recognition software. While efforts are made to proofread this document, sound alike and grammatical errors may occur. Departure - Departure Disposition: Home, Self Care Clinical Impression: Viral URI with cough UTI (urinary tract infection) Qualifiers: Urinary tract infection type: acute cystitis Hematuria presence: without hematuria Qualified Code(s): N30.00 - Acute cystitis without hematuria Qualifiers: Weeks of gestation: 31 weeks Qualified Code(s): Z3A.31 - 31 weeks gestation of Condition: Good Instructions: ED UTI Cystitis Female, ED Viral Syndrome Follow-Up: Yany Rivas ARNP [Primary Care Provider] - Within 1 week Prescriptions: Albuterol Sulf [Ventolin Hfa Inhaler] 1 - 2 puffs INH Q4HR PRN #1 inhaler PRN Reason: Shortness Of Air/Wheezing Nitrofurantoin Monohyd/M-Cryst [Macrobid 100 mg Capsule] 100 mg PO BID #10 capsule predniSONE [Prednisone] 40 mg PO DAILY #10 tablet Comments: Use the medication as prescribed at home. Follow-up with your doctor for further care. You can use Tylenol for pain. Discharge Date/Time: 07/01/19 18:47
[2019-07-01 17:32] LABS: BASOPHILS % (AUTO) 0.2 %; EOSINOPHILS # (AUTO) 0.1 10^3/uL (0.0-0.7); HGB - HEMOGLOBIN 11.6 g/dL (12.0-16.0); LYMPHOCYTES # (AUTO) 2.3 10^3/uL (1.5-3.5); LYMPHOCYTES % (AUTO) 24.2 %; MEAN CORPUSCULAR HEMOGLOBIN 30.9 pg (27.0-31.0); MEAN CORPUSCULAR HGB CONC 33.5 g/dL (32.0-36.0); MEAN PLATELET VOLUME 9.3 fL (7.9-10.8); MONOCYTES # (AUTO) 0.7 10^3/uL (0.0-1.0); MONOCYTES % (AUTO) 7.5 %; NEUTROPHILS # (AUTO) 6.2 10^3/uL (1.5-6.6); NEUTROPHILS % (AUTO) 66.3 %; PLT - PLATELET COUNT 338 10^3/uL (130-450); RED BLOOD COUNT 3.76 10^6/uL (4.20-5.40); RED CELL DISTRIBUTION WIDTH 12.3 % (12.0-15.0); WHITE BLOOD COUNT 9.3 x10^3/uL (4.8-10.8)
[2019-07-01 18:28] LABS: ALBUMIN 2.7 g/dL (3.2-5.5); ALBUMIN/GLOBULIN RATIO 0.7 (1.0-2.2); BILIRUBIN,TOTAL 0.2 mg/dL (0.2-1.0); CALCIUM 8.5 mg/dL (8.5-10.3); CREATININE 0.6 mg/dL (0.4-1.0); TOTAL PROTEIN 6.5 g/dL (6.7-8.2)
[2019-07-01 18:52] VITALS: BP 120/70
== END 2019-07-01 18:47 | disposition home or self-care (01) ==
LOC: ED 16:12
DX: O99.513 Diseases of the respiratory system complicating pregnancy, third trimester (principal); J06.9 Acute upper respiratory infection, unspecified; O23.13 Infections of bladder in pregnancy, third trimester; F17.200 Nicotine dependence, unspecified, uncomplicated; Z3A.31 31 weeks gestation of pregnancy
CPT/HCPCS: 36415; 80053; 81001; 83690; 85025; 94640; 94664; 99283; 99284; J7512; 81003; 87086

== ENCOUNTER 2019-07-19 18:33 | Outpatient (CLI) | payer MEDICAID ==
[2019-07-19 18:48] VITALS: BP 127/78
[2019-07-19 20:06] LABS: MUDS CUTOFF CONCENTRATIONS CUTOFF CONC BELOW:
[2019-07-19 20:09] LABS: BILIRUBIN,URINE NEGATIVE (NEGATIVE); GLUCOSE, URINE (UA) NEGATIVE (NEGATIVE); KETONES,URINE (UA) NEGATIVE (NEGATIVE); LEUKOCYTE ESTERASE, URINE LARGE (NEGATIVE); NITRITE,URINE NEGATIVE (NEGATIVE); OCCULT BLOOD,URINE NEGATIVE (NEGATIVE); PROTEIN,URINE NEGATIVE (NEGATIVE); UROBILINOGEN,URINE 0.2 (NORMAL) E.U./dL (NORMAL)
[2019-07-19 20:10] LABS: CLARITY,URINE HAZY (CLEAR)
[2019-07-19 20:19] LABS: AMPHETAMINE SCREEN,URINE POSITIVE (NEGATIVE); BENZODIAZEPINES SCREEN, URINE NEGATIVE (NEGATIVE); COCAINE SCREEN URINE NEGATIVE (NEGATIVE); METHADONE SCREEN, URINE NEGATIVE (NEGATIVE); METHAMPHETAMINES SCREEN, URINE POSITIVE (NEGATIVE); OPIATE SCREEN, URINE NEGATIVE (NEGATIVE); TRICYCLIC ANTIDEPRESSANT,URINE NEGATIVE (NEGATIVE)
[2019-07-19 20:20] LABS: OXYCODONE SCREEN, URINE NEGATIVE (NEGATIVE); PROPOXYPHENE SCREEN, URINE NEGATIVE (NEGATIVE)
--- NOTE | 2019-07-19 20:39 | HISTORY & PHYSICAL EXAMINATION ---
DATE OF SERVICE: 07/19/2019 Physician: Kenyon Kearns MD IDENTIFICATION: Patient is a 23-year-old G5, P1 female who is 32.4 weeks. Her EDC is 09/09/2019. CHIEF COMPLAINT: Feeling warm. HISTORY OF PRESENT ILLNESS: Patient presented to the emergency room with complaints of feeling warm and was sent to Labor and Delivery for obstetrical clearance. She is currently 32 weeks at this point. She had a nonstress test, which was performed, which was appropriate for gestational age. She has exhibited no contractions. Her uterus was nontender. She denies any other symptoms. She does have a history of having had a baby born at 35 weeks and 5 days secondary to utilizing heroin and meth during the . had intestinal problems at time of delivery. PAST MEDICAL HISTORY Positive for: 1. Asthma. 2. Anemia. 3. Migraines. 4. Ovarian cysts. 5. She also has a history of having drug abuse with both methamphetamine as well as opioids. PAST SURGICAL HISTORY: None. ALLERGIES: TB additive. CURRENT MEDICATIONS: Patient states all she is taking right now is vitamins. HABITS: Patient denies used tobacco. Does do marijuana occasionally. She states her last use was roughly 2 weeks ago. She also does methamphetamines on a p.r.n. basis. She is aware that this is not good for her . SOCIAL HISTORY: Patient states she lives in a safe, stable environment. FAMILY HISTORY: Positive for anemia, thyroid disorder, asthma, diabetes, renal, and kidney disease. PHYSICAL EXAMINATION GENERAL: Well-developed, well-nourished female. She is in no acute distress at this time. She is not complaining of any contractions. VITAL SIGNS: Temperature of 36.5, heart rate 105, blood pressure 127/78, respirations are 18. HEENT: Pupils are equal and round. Extraocular muscles are intact. Mouth is clear. HEART: Regular rate and rhythm without murmurs. LUNGS: Lung sierra are clear without rales or wheezes. ABDOMEN: Gravid measuring 33 cm at this point. DIAGNOSTIC DATA: The nonstress test shows appropriate strip for her gestational age. Patient's obstetrical care has been somewhat spotty in that she has not been keeping her appointments. LABORATORY: Labs show her to be A positive. She has not completed her 50 gram Glucola; however, she did have a hemoglobin A1c done on 05/27, which was 4.9. IMPRESSION 1. Poor obstetrical care. 2. At 32 weeks and 4 days. PLAN: We will have patient return to the ED for evaluation there. She has no obstetrical issues at this time other than her poor OB care. She has been instructed that she needs to follow up with her OB care, whether it is here, at [facility], or at [place]. This has been stressed to her that she needs to take care of her infant. TD: 07/19/2019 20:03 LANA
[2019-07-20 06:26] LABS: RBC,URINE 0-5 /HPF (0-5); SQUAMOUS EPITHELIAL CELL,UR MANY Squamous (<= Few)
[2019-07-20 06:28] LABS: BACTERIA,URINE Few /HPF (None Seen)
== END 2019-07-19 20:00 | disposition short-term general hospital (02) ==
LOC: WFO 18:33 → FBP 18:39 → WFO 20:00
PROVIDERS: ATTEND Obstetrics & Gynecology
DX: O99.89 Other specified diseases and conditions complicating pregnancy, childbirth and the puerperium (principal); R68.89 Other general symptoms and signs; O09.33 Supervision of pregnancy with insufficient antenatal care, third trimester; Z3A.33 33 weeks gestation of pregnancy; O99.323 Drug use complicating pregnancy, third trimester; F15.90 Other stimulant use, unspecified, uncomplicated; F12.90 Cannabis use, unspecified, uncomplicated; Z87.59 Personal history of other complications of pregnancy, childbirth and the puerperium
CPT/HCPCS: 80306; 81001; 81003; 87086; 99212

== ENCOUNTER 2019-08-09 16:06 | Outpatient (CLI) | payer MEDICAID | END 2019-08-09 16:07 | disposition critical access hospital (66) | LOC: EMS 16:06 | PROVIDERS: ATTEND Surgery | DX: O99.89 Other specified diseases and conditions complicating pregnancy, childbirth and the puerperium (principal); R10.30 Lower abdominal pain, unspecified | CPT/HCPCS: A0425; A0429 ==

== ENCOUNTER 2019-08-09 16:42 | Outpatient (CLI) | payer MEDICAID ==
[2019-08-09 17:25] LABS: BASOPHILS % (AUTO) 0.3 %; EOSINOPHILS # (AUTO) 0.1 10^3/uL (0.0-0.7); EOSINOPHILS % (AUTO) 0.8 %; HGB - HEMOGLOBIN 11.3 g/dL (12.0-16.0); LYMPHOCYTES # (AUTO) 2.6 10^3/uL (1.5-3.5); LYMPHOCYTES % (AUTO) 23.4 %; MEAN CORPUSCULAR HEMOGLOBIN 28.7 pg (27.0-31.0); MEAN CORPUSCULAR HGB CONC 32.8 g/dL (32.0-36.0); MEAN CORPUSCULAR VOLUME 87.3 fL (81.0-99.0); MEAN PLATELET VOLUME 9.6 fL (7.9-10.8); MONOCYTES # (AUTO) 0.8 10^3/uL (0.0-1.0); MONOCYTES % (AUTO) 7.3 %; NEUTROPHILS # (AUTO) 7.3 10^3/uL (1.5-6.6); NEUTROPHILS % (AUTO) 67.4 %; PLT - PLATELET COUNT 370 10^3/uL (130-450); RED BLOOD COUNT 3.94 10^6/uL (4.20-5.40); RED CELL DISTRIBUTION WIDTH 13.2 % (12.0-15.0); WHITE BLOOD COUNT 10.9 x10^3/uL (4.8-10.8)
[2019-08-09 17:37] LABS: ALBUMIN 2.5 g/dL (3.2-5.5); ALBUMIN/GLOBULIN RATIO 0.6 (1.0-2.2); BILIRUBIN,TOTAL 0.4 mg/dL (0.2-1.0); CALCIUM 8.8 mg/dL (8.5-10.3); CREATININE 0.5 mg/dL (0.4-1.0); TOTAL PROTEIN 6.6 g/dL (6.7-8.2)
[2019-08-09 17:38] LABS: RUPTURE OF MEMBRANES PLUS NEGATIVE (NEGATIVE)
[2019-08-09 18:17] LABS: MUDS CUTOFF CONCENTRATIONS CUTOFF CONC BELOW:
[2019-08-09 18:20] LABS: BILIRUBIN,URINE NEGATIVE (NEGATIVE); GLUCOSE, URINE (UA) NEGATIVE (NEGATIVE); KETONES,URINE (UA) NEGATIVE (NEGATIVE); LEUKOCYTE ESTERASE, URINE MODERATE (NEGATIVE); NITRITE,URINE NEGATIVE (NEGATIVE); OCCULT BLOOD,URINE NEGATIVE (NEGATIVE); PROTEIN,URINE NEGATIVE (NEGATIVE); UROBILINOGEN,URINE 0.2 (NORMAL) E.U./dL (NORMAL)
[2019-08-09 18:21] LABS: CLARITY,URINE HAZY (CLEAR)
[2019-08-09 18:28] LABS: BACTERIA,URINE Few /HPF (None Seen); RBC,URINE None Seen /HPF (0-5); SQUAMOUS EPITHELIAL CELL,UR MOD Squamous (<= Few)
[2019-08-09 18:30] LABS: AMPHETAMINE SCREEN,URINE NEGATIVE (NEGATIVE); BENZODIAZEPINES SCREEN, URINE NEGATIVE (NEGATIVE); COCAINE SCREEN URINE NEGATIVE (NEGATIVE); METHADONE SCREEN, URINE NEGATIVE (NEGATIVE); METHAMPHETAMINES SCREEN, URINE NEGATIVE (NEGATIVE); OPIATE SCREEN, URINE NEGATIVE (NEGATIVE); OXYCODONE SCREEN, URINE NEGATIVE (NEGATIVE); PROPOXYPHENE SCREEN, URINE NEGATIVE (NEGATIVE); TRICYCLIC ANTIDEPRESSANT,URINE NEGATIVE (NEGATIVE)
[2019-08-09 21:20] LABS: TRICHOMONAS VAGINALIS DNA POSITIVE (NEGATIVE)
[2019-08-09 22:17] LABS: CANDIDA GROUP DNA UNRESOLVED (NEGATIVE); CANDIDA KRUSEI DNA UNRESOLVED (NEGATIVE); TRICHOMONAS VAGINALIS DNA UNRESOLVED (NEGATIVE)
--- NOTE | 2019-08-11 11:28 | PROVIDER PROGRESS NOTE ---
- HPI Chief Complaint: Labor Check (Pt C/O contractions. brought in by ambulance.) Current : Current EDU 09/09/19 Gestation 35 Weeks and 4 Days 4 Para 1 - Procedures OB Procedure Performed: NST (reactive) Diagnosis/Indication for NST: labor NST Procedure: reactive - Plan Plan: Pt has had problems with compliance. she has not been keeping appts or taking the medications. She has culture positive for Tric. she does not tolerate Flygel and has not been taking chlortrimisol as Rx Appt for next week made and given to the pt. Rx refilled
== END 2019-08-09 18:28 | disposition home or self-care (01) ==
LOC: FBP 16:42 → WFO 16:42
PROVIDERS: ATTEND Obstetrics & Gynecology
DX: O98.313 Other infections with a predominantly sexual mode of transmission complicating pregnancy, third trimester (principal); A59.9 Trichomoniasis, unspecified; Z3A.35 35 weeks gestation of pregnancy; Z91.19 Patient's noncompliance with other medical treatment and regimen
CPT/HCPCS: 36415; 80053; 80306; 81001; 84112; 85025; 87086; 87491; 87591; 87661; 87797; 87801; 99214

== ENCOUNTER 2019-08-13 03:29 | Outpatient (CLI) | payer MEDICAID | END 2019-08-13 03:30 | disposition critical access hospital (66) | LOC: EMS 03:29 | PROVIDERS: ATTEND Surgery | DX: O99.89 Other specified diseases and conditions complicating pregnancy, childbirth and the puerperium (principal) | CPT/HCPCS: A0425; A0429 ==

== ENCOUNTER 2019-08-13 03:36 | Inpatient (IN) | payer MEDICAID ==
[2019-08-13] MEDS ORDERED: SODIUM CHLORIDE FLUSH 0.9% 10 ML SYRINGE IVP PRN (03:58)
[2019-08-13 04:09] VITALS: BP 136/82
[2019-08-13 05:41] LABS: BASOPHILS % (AUTO) 0.3 %; EOSINOPHILS # (AUTO) 0.1 10^3/uL (0.0-0.7); EOSINOPHILS % (AUTO) 0.6 %; HGB - HEMOGLOBIN 11.8 g/dL (12.0-16.0); LYMPHOCYTES # (AUTO) 2.5 10^3/uL (1.5-3.5); LYMPHOCYTES % (AUTO) 23.3 %; MEAN CORPUSCULAR HEMOGLOBIN 29.1 pg (27.0-31.0); MEAN CORPUSCULAR VOLUME 88.2 fL (81.0-99.0); MEAN PLATELET VOLUME 9.8 fL (7.9-10.8); MONOCYTES # (AUTO) 0.8 10^3/uL (0.0-1.0); MONOCYTES % (AUTO) 6.9 %; NEUTROPHILS # (AUTO) 7.4 10^3/uL (1.5-6.6); NEUTROPHILS % (AUTO) 68.2 %; PLT - PLATELET COUNT 349 10^3/uL (130-450); RED BLOOD COUNT 4.06 10^6/uL (4.20-5.40); RED CELL DISTRIBUTION WIDTH 13.4 % (12.0-15.0); WHITE BLOOD COUNT 10.9 x10^3/uL (4.8-10.8)
[2019-08-13] MEDS: LACTATED RINGERS 1,000 ML IV SCH ×3 (05:51→16:00)
[2019-08-13 06:44] LABS: MUDS CUTOFF CONCENTRATIONS CUTOFF CONC BELOW:
[2019-08-13 07:03] LABS: AMPHETAMINE SCREEN,URINE POSITIVE (NEGATIVE); BENZODIAZEPINES SCREEN, URINE NEGATIVE (NEGATIVE); COCAINE SCREEN URINE NEGATIVE (NEGATIVE); METHADONE SCREEN, URINE NEGATIVE (NEGATIVE); METHAMPHETAMINES SCREEN, URINE POSITIVE (NEGATIVE); OPIATE SCREEN, URINE POSITIVE (NEGATIVE); OXYCODONE SCREEN, URINE NEGATIVE (NEGATIVE); PROPOXYPHENE SCREEN, URINE NEGATIVE (NEGATIVE); TRICYCLIC ANTIDEPRESSANT,URINE NEGATIVE (NEGATIVE)
[2019-08-13 07:20] LABS: BILIRUBIN,URINE NEGATIVE (NEGATIVE); GLUCOSE, URINE (UA) NEGATIVE (NEGATIVE); KETONES,URINE (UA) NEGATIVE (NEGATIVE); LEUKOCYTE ESTERASE, URINE SMALL (NEGATIVE); NITRITE,URINE NEGATIVE (NEGATIVE); OCCULT BLOOD,URINE NEGATIVE (NEGATIVE); PROTEIN,URINE TRACE mg/dL (NEGATIVE); UROBILINOGEN,URINE 1 (NORMAL) E.U./dL (NORMAL)
[2019-08-13 07:32] LABS: ALBUMIN 2.8 g/dL (3.2-5.5); ALBUMIN/GLOBULIN RATIO 0.7 (1.0-2.2); BILIRUBIN,TOTAL 0.4 mg/dL (0.2-1.0); CALCIUM 8.4 mg/dL (8.5-10.3); CREATININE 0.5 mg/dL (0.4-1.0); TOTAL PROTEIN 6.6 g/dL (6.7-8.2); URIC ACID 4.4 mg/dL (2.6-7.2)
[2019-08-13 07:33] LABS: PROTEIN/CREATININE RATIO,URINE 0.3 (<=0.2)
[2019-08-13 07:44] LABS: BACTERIA,URINE Many /HPF (None Seen); CLARITY,URINE CLOUDY (CLEAR); RBC,URINE 0-5 /HPF (0-5); SQUAMOUS EPITHELIAL CELL,UR MANY Squamous (<= Few); WBC CLUMPS,URINE PRESENT
[2019-08-13 07:45] LABS: MUCUS,URINE Marked Strands; TRICHOMONAS,URINE PRESENT (None Seen)
--- NOTE | 2019-08-13 08:53 | PREOP HISTORY & PHYSICAL ---
DATE OF SERVICE: 08/13/2019 Physician: Kenyon Kearns MD IDENTIFICATION: Patient is a 23-year-old G4, P1, AB2 female whose EDC is 09/08, this makes her 36.1 weeks. She had sporadic visits. Her gestational age is determined by LMP and early ultrasound. Her course has been sporadic in her visits. She is known to have a drug problem, utilizing methamphetamines. She has not kept her appointments. She has been seen 4 times during this . She admits to the use of methamphetamines on a daily basis. She uses heroin, maybe 3 to 6 times per month and smokes marijuana on a monthly basis. This last evening, she developed contractions at roughly 8:00. They became progressively worse. She presented via ambulance at 3:00 this morning, at which time, her cervix by nursing was 3 cm, 70% effaced. Because of the concerns of her only being 36 weeks, it was decided to observe and obtain a urine drug screen. Upon doing a repeat examination, she spontaneously ruptured. She was noted to have light meconium. Her drug screen just returned and she is positive for methamphetamines, amphetamines as well as heroin. Her previous drug screen done this month was negative for all drugs tested. Patient states she obtains her methamphetamine and heroin via smoking rather than injection. Her contractions have been minimal at this point. She was positive for nitrazine as well as ferning at this point. Pt first child was complicated with Preeclampsia and delivered at 35+ weeks. PAST MEDICAL HISTORY 1. Asthma. 2. Anemia. 3. Ovarian cysts. 4. Drug abuse since 16 years old. PAST SURGICAL HISTORY: None. ALLERGIES: TB additive. CURRENT MEDICATIONS 1. She is taking gummy bears twice daily. 2. She also utilizes albuterol. 3. She has not been taking the Macrobid that she was prescribed. HABITS: Patient smokes 5 to 7 cigarettes per day. Denies use of alcohol, utilizes meth on a daily basis, heroin 3 to 6 times per month as well as THC on a monthly basis. Patient is single, lives with significant other. FAMILY HISTORY: Positive for asthma, anemia, diabetes. PHYSICAL EXAMINATION VITAL SIGNS: Blood pressures have been ranging anywhere from 133 to 145 systolic, diastolics have been running 87 to 95. GENERAL: The patient is oriented to person, place and time, but is somewhat somnolent, but very easily arousable. HEENT: Pupils are equal and round. Extraocular muscles are intact. She does not show any pinpoint pupils. HEART: Regular rate and rhythm without murmurs. LUNGS: Lung sierra are clear. ABDOMEN: Gravid 37 cm fundal height. There is no tenderness. She is not currently celine. Her cervix with her last check was 3 cm, 80%. I reexamined her and found her to be 2-3/30%/-2/vertex. followup at 1300 3 /50%/- 1/vertex. On My Steril Speculum was fern negative, pool negative, Nitrazine negative. EXTREMITIES: DTRs are absent. There is no swelling of the ankles. LABORATORY DATA: Because of her increasing blood pressures, a set of [facility] labs were drawn. Her chemistry panel is within normal limits with the exception of a sodium of 133. Her creatinine is 0.5. Her uric acid is 4.4, AST and ALT are both normal. She had a urine protein-creatinine ratio drawn, which shows a ratio of 0.3. However, she also has urinary Trichomonas, which has had prescriptions written for, which she has not filled. She has many squamous cells as well as white cells and leukocyte esterase. Her hematology shows a white count of 10.6, her hemoglobin is 11.8, hematocrit was 35.8, platelets are 349. BPP 8/8 with JANET 12. IMPRESSION 1. A 23-year-old G4, P1 at 36.1 weeks. 2. Negative rupture of membranes. 3. Cervical changes. 4. Mild Preeclampsia. 5. History of chronic methamphetamine use with occasional heroin use, which appears to be going through some withdrawal from her amphetamines. 6. Poor medical compliance. PLAN: I have discussed patient with supervisor personnel clerks. They would prefer she be transferred out because of the concerns about drug withdrawal in . Discussed with Dr Patrizia Estrella at [facility] in [place], [place]. Accepts transfer. TD: 08/13/2019 08:27 LANA
[2019-08-13] MEDS ORDERED: SODIUM CHLORIDE FLUSH 0.9% 10 ML SYRINGE IVP SCH (09:00)
[2019-08-13 09:01] LABS: RUPTURE OF MEMBRANES PLUS NEGATIVE (NEGATIVE)
[2019-08-13 10:18] LABS: CREATININE,URINE 102.5 mg/dL; PROTEIN/CREATININE RATIO,URINE 0.4 (<=0.2)
[2019-08-13] MEDS ORDERED: ACETAMINOPHEN 325 MG TABLET PO PRN (10:27)
--- NOTE | 2019-08-13 13:39 | Ultrasound Report ---
Reason: preeclampsia Procedure Date: 08/13/2019 Accession Number: [id number] / [id number] Procedure: US - OB Biophysical Profile CPT Code: Final Report FULL RESULT: EXAM: BIOPHYSICAL PROFILE EXAM DATE: 08/13/2019 12:49 PM. CLINICAL HISTORY: Preeclampsia. COMPARISON: 06/08/2019. TECHNIQUE: Real-time sonographic evaluation of the fetus performed by the editor newspaper. Multiple sales representative aircraft static images were saved for review. DATING: Established EGA 36 weeks 1 day with CHRISTIANO 09/09/2019. GENERAL EVALUATION Bass . Cardiac activity: 153 bpm. movement: Visualized. Presentation: Cephalic. Placenta: Posterior fundal position. No evidence for previa or abruption. Amniotic fluid: Normal. JANET 12.9 cm. MVP 4.8 cm. BIOPHYSICAL PROFILE Breathing = 2 Movement = 2 Tone = 2 Amniotic Fluid = 2 Total 11/11 IMPRESSION: 1. Bass live intrauterine with gestational age 36 weeks 1 day based on established CHRISTIANO. 2. Biophysical profile score 8 of 8. ELOINA
--- NOTE | 2019-08-24 12:55 | PROVIDER PROGRESS NOTE ---
Subjective - Prog Note Date Prog Note Date: 08/09/19 - Subjective Pt reports feeling: No change Objective - Lab Results Fish Bones: 08/13/19 05:25 08/13/19 06:25 Assessment/Plan - Problem List (1) contractions Impression: Pt showed cervical change and therefore needs to be transferred to a hospital with NICU. transfer ground. (2) Methamphetamine abuse Impression: Pt has a long history of meth abuse. she appears to be currently with drawing. (3) Pre-eclampsia Impression: blood pressure show mild elivation with P/C 0.4. will transfer to [facility].
== END 2019-08-13 16:12 | disposition short-term general hospital (02) | DRG 832 ==
LOC: WFO 03:36 → FBP 03:39 → WFO 03:57 → FBP 03:58
PROVIDERS: ADMIT Obstetrics & Gynecology; ATTEND Obstetrics & Gynecology
DX: O60.03 Preterm labor without delivery, third trimester (principal); O99.323 Drug use complicating pregnancy, third trimester; O14.03 Mild to moderate pre-eclampsia, third trimester; O98.813 Other maternal infectious and parasitic diseases complicating pregnancy, third trimester; O42.013 Preterm premature rupture of membranes, onset of labor within 24 hours of rupture, third trimester; A59.00 Urogenital trichomoniasis, unspecified; Z3A.36 36 weeks gestation of pregnancy; F15.10 Other stimulant abuse, uncomplicated; F11.90 Opioid use, unspecified, uncomplicated; O99.333 Smoking (tobacco) complicating pregnancy, third trimester; F17.210 Nicotine dependence, cigarettes, uncomplicated; O99.513 Diseases of the respiratory system complicating pregnancy, third trimester; J45.909 Unspecified asthma, uncomplicated; O77.0 Labor and delivery complicated by meconium in amniotic fluid; T37.8X6A Underdosing of other specified systemic anti-infectives and antiparasitics, initial encounter; Y92.9 Unspecified place or not applicable; Z72.89 Other problems related to lifestyle; Z87.59 Personal history of other complications of pregnancy, childbirth and the puerperium
CPT/HCPCS: 36415; 76819; 80053; 80306; 81001; 82570; 84112; 84156; 84550; 85025; 99215; J7120

== ENCOUNTER 2019-08-21 22:59 | Outpatient (CLI) | payer MEDICAID | END 2019-08-21 23:59 | disposition critical access hospital (66) | LOC: EMS 22:59 | PROVIDERS: ATTEND Surgery | DX: O99.89 Other specified diseases and conditions complicating pregnancy, childbirth and the puerperium (principal); R10.30 Lower abdominal pain, unspecified | CPT/HCPCS: A0425; A0429 ==

== ENCOUNTER 2019-08-21 23:17 | Observation (INO) | payer MEDICAID ==
[2019-08-21 23:50] LABS: MUDS CUTOFF CONCENTRATIONS CUTOFF CONC BELOW:
[2019-08-22 00:06] LABS: AMPHETAMINE SCREEN,URINE POSITIVE (NEGATIVE); BENZODIAZEPINES SCREEN, URINE NEGATIVE (NEGATIVE); COCAINE SCREEN URINE POSITIVE (NEGATIVE); METHADONE SCREEN, URINE NEGATIVE (NEGATIVE); METHAMPHETAMINES SCREEN, URINE POSITIVE (NEGATIVE); OPIATE SCREEN, URINE NEGATIVE (NEGATIVE); OXYCODONE SCREEN, URINE NEGATIVE (NEGATIVE); PROPOXYPHENE SCREEN, URINE NEGATIVE (NEGATIVE); TRICYCLIC ANTIDEPRESSANT,URINE NEGATIVE (NEGATIVE)
[2019-08-22] MEDS ORDERED: LACTATED RINGERS 1,000 ML IV ONE (00:19)
--- NOTE | 2019-08-22 00:29 | HISTORY & PHYSICAL EXAMINATION ---
Admit History - Visit Reason Visit Reason: Contractions (23yo at 37w3d by first trimester scan not c/w LMP presents with c/o several days of contractions, more intense today and intermittent fluid leak. No gushes, no leaks last evening. No bleeding. Normal activity. No n/v/f/c or dysuria. Admits to smoking cocaine and meth right before she called EMS to come here for evaluation. Scant care, h/o SAB x3, delivery at 34.5 weeks per patient. That baby w duodenal atresia now s/p repair) - : 5 Parity: 1 Premature: 1 Ectopic: 0 : 3 Care: positive: [facility] Risk/History: positive: labor <37 weeks, High risk ( Previous delivery baby w duodenal atresia, substance abuse. Baby removed from her custody Borderline hypertension), Other (Asthma; uses albuterol inhaler 3-4/day, no h/o intubation. Smokes 1/2PPD) Complications This : positive: Maternal drug use (Scant care, substance abuse; regular meth, cocaine use. Only opioid use in past few months on 08/12. Also smokes tobacco and marijuana.), Other ( Untreated trich, iron deficiency anemia) Smoking Status: Current every day smoker - Mother's Labs Mother's Blood Type: positive: A Mother's RH: positive: Positive GBS: positive: Group B Step Negative Rubella Status: positive: Immune (GC/chlam neg HSV neg HIV, HepB neg hgb A1c 4.9 on 05/26 Iron deficiency) Meds/Allgy - Home Medications Home Medications: Ambulatory Orders Medication Instructions Recorded Confirmed Albuterol Sulf [Ventolin Hfa 1 - 2 puffs INH Q4HR PRN #1 inhaler 07/01/19 08/22/19 Inhaler] - Allergies Allergies/Adverse Reactions: Allergies Allergy/AdvReac Type Severity Reaction Status Date / Time cephalexin [From Keflex] Allergy Rash Verified 07/01/19 16:31 Review of Systems - All Other Systems All Other Systems: reports: Reviewed and negative (except as noted above) Physical - Abdominal Exam Vital Signs: Temp Pulse Resp BP Pulse Ox 98.2 F 104 H 20 132/83 H 08/21/19 23:21 08/21/19 23:21 08/21/19 23:21 08/21/19 23:21 Contraction Frequency (min/apart): q8-10 Contraction Intensity: positive: Mild Uterine Resting Tone: positive: Soft - Monitoring Heart Rate Baseline: 140's Strip Review: positive: Category I - Presentation Presentation: positive: Vertex (by scan, normal amniotic fluid volume, no pooling or ferning. Rom+ sent. Copious yellowish frothy DC; +trich, clue cells and sheets of WBCs seen on wet mount Cervix visually thick, possibly 1cm) Plan for Labor - Plan For Labor Plan for Labor: 23yo at 37w3d by first trimester scan, GBS neg, A+ with prodromal labor; ROM+ sent, however clinically not ruptured. +trich and BV. Pt has not been able to tolerate PO flagyl so will pretreat w zofran and give IV Iron deficiency; has not taken any vits or iron ordered; will give IV iron dextran Poorly nourished; plan banana bag +drug screen although not for opiates; only +heroin use once in last few month so would not expect RODRIGO baby Planning epidural in labor; not in labor yet. Will observe and reassess. Exam - Exam Vital Signs: Vital Signs (72 hours) 08/21/19 23:21 Temperature 98.2 F Heart Rate [ 104 H Brachial] Respiratory 20 Rate Blood Pressure 132/83 H [Right Brachial artery] General: Alert, Oriented x3, Mild distress, Other (Disheveled, poorly nourished) Lungs: Clear to auscultation, Normal air movement (no wheezing) Cardiovascular: Regular rate (2/6 systolic murmur at LSB, tachycardia) Abdomen: Soft, No tenderness, No masses (gravid, S<D) Neurological: Normal speech Psych/Mental Status: Mental status NL
[2019-08-22 00:33] LABS: RUPTURE OF MEMBRANES PLUS NEGATIVE (NEGATIVE)
[2019-08-22 00:46] LABS: BILIRUBIN,URINE NEGATIVE (NEGATIVE); GLUCOSE, URINE (UA) NEGATIVE (NEGATIVE); KETONES,URINE (UA) NEGATIVE (NEGATIVE); LEUKOCYTE ESTERASE, URINE NEGATIVE (NEGATIVE); NITRITE,URINE NEGATIVE (NEGATIVE); OCCULT BLOOD,URINE NEGATIVE (NEGATIVE); PROTEIN,URINE 30 mg/dL (NEGATIVE); UROBILINOGEN,URINE 1 (NORMAL) E.U./dL (NORMAL)
[2019-08-22 00:51] LABS: CLARITY,URINE CLOUDY (CLEAR)
[2019-08-22] MEDS ORDERED: IRON DEXTRAN 1,000 MG in SODIUM CHLORIDE 0.9% 250 ML IV ONE ×2 (00:55→11:00)
[2019-08-22] MEDS ORDERED: ONDANSETRON 4 MG/2 ML VIAL IVP PRN (00:56)
[2019-08-22 00:58] LABS: AMORPHOUS SEDIMENT,UR Marked /LPF; BACTERIA,URINE None Seen /HPF (None Seen); RBC,URINE 0-5 /HPF (0-5); SQUAMOUS EPITHELIAL CELL,UR RARE Squamous (<= Few)
[2019-08-22] MEDS ORDERED: MULTIVITAMIN 10 ML, FOLIC ACID INJ 1 MG, THIAMINE INJ 100 MG, MAGNESIUM SULFATE 2 GM in... IV SCH ×11 (01:00→12:00)
[2019-08-22] MEDS ORDERED: SODIUM CHLORIDE FLUSH 0.9% 10 ML SYRINGE IVP PRN (01:09)
[2019-08-22] MEDS ORDERED: fentaNYL 100 MCG/2 ML VIAL IVP PRN (01:09)
[2019-08-22] MEDS ORDERED: ACETAMINOPHEN 325 MG TABLET PO PRN (01:09)
--- NOTE | 2019-08-22 01:13 | PROVIDER PROGRESS NOTE ---
Subjective - Subjective Subjective: ROM+ negative Digital exam: 2cm/60%/-1 Category 1 tracing Hydration and meds in progress. Objective - Vital Signs/Intake & Output Vital Signs: Vital Signs x48h Temp Pulse Resp BP 08/21/19 23:21 98.2 F 104 H 20 132/83 H - Lab Results Other Labs: Lab Results x24hrs 08/21/19 08/21/19 08/21/19 Range/Units 23:45 23:41 23:41 Urine Color YELLOW Urine Clarity CLOUDY (CLEAR) Urine pH 6.0 (5.0-7.5) PH Ur Specific [place] >=1.030 H (1.002-1.030) Urine Protein 30 H (NEGATIVE) mg/dL Urine Glucose (UA) NEGATIVE (NEGATIVE) mg/dL Urine Ketones NEGATIVE (NEGATIVE) mg/dL Urine Occult Blood NEGATIVE (NEGATIVE) Urine Nitrite NEGATIVE (NEGATIVE) Urine Bilirubin NEGATIVE (NEGATIVE) Urine Urobilinogen 1 (NORMAL) (NORMAL) E.U./dL Ur Leukocyte Esterase NEGATIVE (NEGATIVE) Urine RBC 0-5 (0-5) /HPF Urine WBC 0-3 (0-5) /HPF Ur Squamous Epith Cells RARE Squamous (<= Few) Amorphous Sediment Marked /LPF Urine Bacteria None Seen (None Seen) /HPF Urine Culture Comments NOT INDICATED Membranes Rupture NEGATIVE (NEGATIVE) Urine Opiates Screen NEGATIVE (NEGATIVE) Ur Oxycodone Screen NEGATIVE (NEGATIVE) Urine Methadone Screen NEGATIVE (NEGATIVE) Ur Propoxyphene Screen NEGATIVE (NEGATIVE) Ur Barbiturates Screen NEGATIVE (NEGATIVE) Ur Tricyclics Screen NEGATIVE (NEGATIVE) Ur Phencyclidine Scrn NEGATIVE (NEGATIVE) Ur Amphetamine Screen POSITIVE H (NEGATIVE) U Methamphetamines Scrn POSITIVE H (NEGATIVE) U Benzodiazepines Scrn NEGATIVE (NEGATIVE) Urine Cocaine Screen POSITIVE H (NEGATIVE) U Cannabinoids Screen NEGATIVE (NEGATIVE)
[2019-08-22] MEDS ORDERED: SODIUM CHLORIDE 0.9% 1,000 ML IV ONE (01:19)
[2019-08-22] MEDS ORDERED: MAGNESIUM SULFATE 1 GM/2 ML VIAL ONE (01:19)
[2019-08-22] MEDS ORDERED: THIAMINE 100 MG/1 ML 2 ML MDV ONE (01:19)
[2019-08-22] MEDS: LACTATED RINGERS 1,000 ML IV SCH ×2 (01:20→12:07)
[2019-08-22] MEDS ORDERED: diphenhydrAMINE 25 MG CAPSULE PO PRN (01:24)
[2019-08-22] MEDS ORDERED: FOLIC ACID 5 MG/1 ML 10ML MDV ONE (01:25)
[2019-08-22 01:38] LABS: BASOPHILS % (AUTO) 0.2 %; EOSINOPHILS # (AUTO) 0.1 10^3/uL (0.0-0.7); EOSINOPHILS % (AUTO) 0.9 %; HGB - HEMOGLOBIN 10.7 g/dL (12.0-16.0); LYMPHOCYTES # (AUTO) 2.6 10^3/uL (1.5-3.5); LYMPHOCYTES % (AUTO) 28.3 %; MEAN CORPUSCULAR HEMOGLOBIN 28.8 pg (27.0-31.0); MEAN CORPUSCULAR HGB CONC 33.1 g/dL (32.0-36.0); MEAN CORPUSCULAR VOLUME 87.1 fL (81.0-99.0); MEAN PLATELET VOLUME 10.1 fL (7.9-10.8); MONOCYTES # (AUTO) 0.6 10^3/uL (0.0-1.0); MONOCYTES % (AUTO) 6.6 %; NEUTROPHILS # (AUTO) 5.9 10^3/uL (1.5-6.6); NEUTROPHILS % (AUTO) 63.5 %; PLT - PLATELET COUNT 304 10^3/uL (130-450); RED BLOOD COUNT 3.71 10^6/uL (4.20-5.40); RED CELL DISTRIBUTION WIDTH 14.1 % (12.0-15.0); WHITE BLOOD COUNT 9.3 x10^3/uL (4.8-10.8)
[2019-08-22 01:42] LABS: CREATININE 0.6 mg/dL (0.4-1.0)
--- NOTE | 2019-08-22 01:47 | PROVIDER PROGRESS NOTE ---
Subjective - Subjective Subjective: Labs noted. As expected; continue current plan. Objective - Vital Signs/Intake & Output Vital Signs: Vital Signs x48h Temp Pulse Resp BP 08/21/19 23:21 98.2 F 104 H 20 132/83 H - Lab Results Fish Bones: 08/22/19 01:20 08/22/19 01:20 Other Labs: Lab Results x24hrs 08/22/19 08/22/19 08/21/19 Range/Units 01:20 01:20 23:45 WBC 9.3 (4.8-10.8) x10^3/uL RBC 3.71 L (4.20-5.40) 10^6/uL Hgb 10.7 L (12.0-16.0) g/dL Hct 32.3 L (37.0-47.0) % MCV 87.1 (81.0-99.0) fL MCH 28.8 (27.0-31.0) pg MCHC 33.1 (32.0-36.0) g/dL RDW 14.1 (12.0-15.0) % Plt Count 304 (130-450) 10^3/uL MPV 10.1 (7.9-10.8) fL Neut # (Auto) 5.9 (1.5-6.6) 10^3/uL Lymph # (Auto) 2.6 (1.5-3.5) 10^3/uL [place] # (Auto) 0.6 (0.0-1.0) 10^3/uL Eos # (Auto) 0.1 (0.0-0.7) 10^3/uL Baso # (Auto) 0.0 (0.0-0.1) 10^3/uL Absolute Nucleated RBC 0.00 x10^3/uL Nucleated RBC % 0.0 /100WBC Sodium 136 (135-145) mmol/L Potassium 3.8 (3.5-5.0) mmol/L Chloride 105 (101-111) mmol/L Carbon Dioxide 22 (21-32) mmol/L Anion Gap 9.0 (6-13) BUN 14 (6-20) mg/dL Creatinine 0.6 (0.4-1.0) mg/dL Estimated GFR (MDRD) 125 (>89) Glucose 87 (70-100) mg/dL Calcium 8.0 L (8.5-10.3) mg/dL Urine Color Urine Clarity (CLEAR) Urine pH (5.0-7.5) PH Ur Specific [place] (1.002-1.030) Urine Protein (NEGATIVE) mg/dL Urine Glucose (UA) (NEGATIVE) mg/dL Urine Ketones (NEGATIVE) mg/dL Urine Occult Blood (NEGATIVE) Urine Nitrite (NEGATIVE) Urine Bilirubin (NEGATIVE) Urine Urobilinogen (NORMAL) E.U./dL Ur Leukocyte Esterase (NEGATIVE) Urine RBC (0-5) /HPF Urine WBC (0-5) /HPF Ur Squamous Epith Cells (<= Few) Amorphous Sediment /LPF Urine Bacteria (None Seen) /HPF Urine Culture Comments Membranes Rupture NEGATIVE (NEGATIVE) Urine Opiates Screen (NEGATIVE) Ur Oxycodone Screen (NEGATIVE) Urine Methadone Screen (NEGATIVE) Ur Propoxyphene Screen (NEGATIVE) Ur Barbiturates Screen (NEGATIVE) Ur Tricyclics Screen (NEGATIVE) Ur Phencyclidine Scrn (NEGATIVE) Ur Amphetamine Screen (NEGATIVE) U Methamphetamines Scrn (NEGATIVE) U Benzodiazepines Scrn (NEGATIVE) Urine Cocaine Screen (NEGATIVE) U Cannabinoids Screen (NEGATIVE) 08/21/19 08/21/19 Range/Units 23:41 23:41 WBC (4.8-10.8) x10^3/uL RBC (4.20-5.40) 10^6/uL Hgb (12.0-16.0) g/dL Hct (37.0-47.0) % MCV (81.0-99.0) fL MCH (27.0-31.0) pg MCHC (32.0-36.0) g/dL RDW (12.0-15.0) % Plt Count (130-450) 10^3/uL MPV (7.9-10.8) fL Neut # (Auto) (1.5-6.6) 10^3/uL Lymph # (Auto) (1.5-3.5) 10^3/uL [place] # (Auto) (0.0-1.0) 10^3/uL Eos # (Auto) (0.0-0.7) 10^3/uL Baso # (Auto) (0.0-0.1) 10^3/uL Absolute Nucleated RBC x10^3/uL Nucleated RBC % /100WBC Sodium (135-145) mmol/L Potassium (3.5-5.0) mmol/L Chloride (101-111) mmol/L Carbon Dioxide (21-32) mmol/L Anion Gap (6-13) BUN (6-20) mg/dL Creatinine (0.4-1.0) mg/dL Estimated GFR (MDRD) (>89) Glucose (70-100) mg/dL Calcium (8.5-10.3) mg/dL Urine Color YELLOW Urine Clarity CLOUDY (CLEAR) Urine pH 6.0 (5.0-7.5) PH Ur Specific [place] >=1.030 H (1.002-1.030) Urine Protein 30 H (NEGATIVE) mg/dL Urine Glucose (UA) NEGATIVE (NEGATIVE) mg/dL Urine Ketones NEGATIVE (NEGATIVE) mg/dL Urine Occult Blood NEGATIVE (NEGATIVE) Urine Nitrite NEGATIVE (NEGATIVE) Urine Bilirubin NEGATIVE (NEGATIVE) Urine Urobilinogen 1 (NORMAL) (NORMAL) E.U./dL Ur Leukocyte Esterase NEGATIVE (NEGATIVE) Urine RBC 0-5 (0-5) /HPF Urine WBC 0-3 (0-5) /HPF Ur Squamous Epith Cells RARE Squamous (<= Few) Amorphous Sediment Marked /LPF Urine Bacteria None Seen (None Seen) /HPF Urine Culture Comments NOT INDICATED Membranes Rupture (NEGATIVE) Urine Opiates Screen NEGATIVE (NEGATIVE) Ur Oxycodone Screen NEGATIVE (NEGATIVE) Urine Methadone Screen NEGATIVE (NEGATIVE) Ur Propoxyphene Screen NEGATIVE (NEGATIVE) Ur Barbiturates Screen NEGATIVE (NEGATIVE) Ur Tricyclics Screen NEGATIVE (NEGATIVE) Ur Phencyclidine Scrn NEGATIVE (NEGATIVE) Ur Amphetamine Screen POSITIVE H (NEGATIVE) U Methamphetamines Scrn POSITIVE H (NEGATIVE) U Benzodiazepines Scrn NEGATIVE (NEGATIVE) Urine Cocaine Screen POSITIVE H (NEGATIVE) U Cannabinoids Screen NEGATIVE (NEGATIVE)
[2019-08-22] MEDS ORDERED: LACTATED RINGERS 1,000 ML IV SCH ×3 (02:00→11:00)
[2019-08-22] MEDS: metroNIDAZOLE 500 MG/100 ML 500 MG/100 ML BAG IV SCH ×2 (02:26→10:40)
--- NOTE | 2019-08-22 02:45 | PROVIDER PROGRESS NOTE ---
Subjective - Prog Note Date Prog Note Date: 08/22/19 Prog Note Time: 02:43 - Subjective Subjective: Sleeping, easily arousable. Not really feeling contractions any more. BP's 120-130's/80's Category 1 Contractions q2-4, very mild Exam deferred. A/P Continues with BH contractions. BP stable. Continue w plan for banana bag, iron, flagyl Objective - Vital Signs/Intake & Output Vital Signs: Vital Signs x48h Temp Pulse Resp BP 08/21/19 23:21 98.2 F 104 H 20 132/83 H - Lab Results Fish Bones: 08/22/19 01:20 08/22/19 01:20 Other Labs: Lab Results x24hrs 08/22/19 08/22/19 08/22/19 Range/Units 01:20 01:20 01:20 WBC 9.3 (4.8-10.8) x10^3/uL RBC 3.71 L (4.20-5.40) 10^6/uL Hgb 10.7 L (12.0-16.0) g/dL Hct 32.3 L (37.0-47.0) % MCV 87.1 (81.0-99.0) fL MCH 28.8 (27.0-31.0) pg MCHC 33.1 (32.0-36.0) g/dL RDW 14.1 (12.0-15.0) % Plt Count 304 (130-450) 10^3/uL MPV 10.1 (7.9-10.8) fL Neut # (Auto) 5.9 (1.5-6.6) 10^3/uL Lymph # (Auto) 2.6 (1.5-3.5) 10^3/uL Lane # (Auto) 0.6 (0.0-1.0) 10^3/uL Eos # (Auto) 0.1 (0.0-0.7) 10^3/uL Baso # (Auto) 0.0 (0.0-0.1) 10^3/uL Absolute Nucleated RBC 0.00 x10^3/uL Nucleated RBC % 0.0 /100WBC Sodium 136 (135-145) mmol/L Potassium 3.8 (3.5-5.0) mmol/L Chloride 105 (101-111) mmol/L Carbon Dioxide 22 (21-32) mmol/L Anion Gap 9.0 (6-13) BUN 14 (6-20) mg/dL Creatinine 0.6 (0.4-1.0) mg/dL Estimated GFR (MDRD) 125 (>89) Glucose 87 (70-100) mg/dL Calcium 8.0 L (8.5-10.3) mg/dL Urine Color Urine Clarity (CLEAR) Urine pH (5.0-7.5) PH Ur Specific [place] (1.002-1.030) Urine Protein (NEGATIVE) mg/dL Urine Glucose (UA) (NEGATIVE) mg/dL Urine Ketones (NEGATIVE) mg/dL Urine Occult Blood (NEGATIVE) Urine Nitrite (NEGATIVE) Urine Bilirubin (NEGATIVE) Urine Urobilinogen (NORMAL) E.U./dL Ur Leukocyte Esterase (NEGATIVE) Urine RBC (0-5) /HPF Urine WBC (0-5) /HPF Ur Squamous Epith Cells (<= Few) Amorphous Sediment /LPF Urine Bacteria (None Seen) /HPF Urine Culture Comments Membranes Rupture (NEGATIVE) Urine Opiates Screen (NEGATIVE) Ur Oxycodone Screen (NEGATIVE) Urine Methadone Screen (NEGATIVE) Ur Propoxyphene Screen (NEGATIVE) Ur Barbiturates Screen (NEGATIVE) Ur Tricyclics Screen (NEGATIVE) Ur Phencyclidine Scrn (NEGATIVE) Ur Amphetamine Screen (NEGATIVE) U Methamphetamines Scrn (NEGATIVE) U Benzodiazepines Scrn (NEGATIVE) Urine Cocaine Screen (NEGATIVE) U Cannabinoids Screen (NEGATIVE) Blood Type A POSITIVE Antibody Screen NEGATIVE 08/21/19 08/21/19 08/21/19 Range/Units 23:45 23:41 23:41 WBC (4.8-10.8) x10^3/uL RBC (4.20-5.40) 10^6/uL Hgb (12.0-16.0) g/dL Hct (37.0-47.0) % MCV (81.0-99.0) fL MCH (27.0-31.0) pg MCHC (32.0-36.0) g/dL RDW (12.0-15.0) % Plt Count (130-450) 10^3/uL MPV (7.9-10.8) fL Neut # (Auto) (1.5-6.6) 10^3/uL Lymph # (Auto) (1.5-3.5) 10^3/uL Lane # (Auto) (0.0-1.0) 10^3/uL Eos # (Auto) (0.0-0.7) 10^3/uL Baso # (Auto) (0.0-0.1) 10^3/uL Absolute Nucleated RBC x10^3/uL Nucleated RBC % /100WBC Sodium (135-145) mmol/L Potassium (3.5-5.0) mmol/L Chloride (101-111) mmol/L Carbon Dioxide (21-32) mmol/L Anion Gap (6-13) BUN (6-20) mg/dL Creatinine (0.4-1.0) mg/dL Estimated GFR (MDRD) (>89) Glucose (70-100) mg/dL Calcium (8.5-10.3) mg/dL Urine Color YELLOW Urine Clarity CLOUDY (CLEAR) Urine pH 6.0 (5.0-7.5) PH Ur Specific [place] >=1.030 H (1.002-1.030) Urine Protein 30 H (NEGATIVE) mg/dL Urine Glucose (UA) NEGATIVE (NEGATIVE) mg/dL Urine Ketones NEGATIVE (NEGATIVE) mg/dL Urine Occult Blood NEGATIVE (NEGATIVE) Urine Nitrite NEGATIVE (NEGATIVE) Urine Bilirubin NEGATIVE (NEGATIVE) Urine Urobilinogen 1 (NORMAL) (NORMAL) E.U./dL Ur Leukocyte Esterase NEGATIVE (NEGATIVE) Urine RBC 0-5 (0-5) /HPF Urine WBC 0-3 (0-5) /HPF Ur Squamous Epith Cells RARE Squamous (<= Few) Amorphous Sediment Marked /LPF Urine Bacteria None Seen (None Seen) /HPF Urine Culture Comments NOT INDICATED Membranes Rupture NEGATIVE (NEGATIVE) Urine Opiates Screen NEGATIVE (NEGATIVE) Ur Oxycodone Screen NEGATIVE (NEGATIVE) Urine Methadone Screen NEGATIVE (NEGATIVE) Ur Propoxyphene Screen NEGATIVE (NEGATIVE) Ur Barbiturates Screen NEGATIVE (NEGATIVE) Ur Tricyclics Screen NEGATIVE (NEGATIVE) Ur Phencyclidine Scrn NEGATIVE (NEGATIVE) Ur Amphetamine Screen POSITIVE H (NEGATIVE) U Methamphetamines Scrn POSITIVE H (NEGATIVE) U Benzodiazepines Scrn NEGATIVE (NEGATIVE) Urine Cocaine Screen POSITIVE H (NEGATIVE) U Cannabinoids Screen NEGATIVE (NEGATIVE) Blood Type Antibody Screen
[2019-08-22] MEDS: ALBUTEROL NEB 2.5 MG/3 ML INH SCH ×3 (07:47→15:15)
[2019-08-22] MEDS ORDERED: SODIUM CHLORIDE FLUSH 0.9% 10 ML SYRINGE IVP SCH (09:00)
--- NOTE | 2019-08-22 11:04 | PROVIDER PROGRESS NOTE ---
Subjective - Prog Note Date Prog Note Date: 08/22/19 Prog Note Time: 10:58 - Subjective Subjective: Comfortable VSS afeb Borderline HTN and tachycardia resolved Category 1 tracing No contractions. VE deferred A/P Stable. Continue IV meds Nutrition support Ideally patient should remain here until 38 weeks when can more safely induce as is at high risk for abruption, out of hospital delivery, etc. Objective - Vital Signs/Intake & Output Vital Signs: Vital Signs x48h Temp Pulse Pulse Resp BP 08/22/19 07:47 91 14 08/22/19 05:00 98.4 F 84 120/78 Intake & Output: Intake & Output 08/19/19 08/20/19 08/21/19 08/22/19 23:59 23:59 23:59 23:59 Intake Total 3115.2 Balance 3115.2 - Lab Results Fish Bones: 08/22/19 01:20 08/22/19 01:20 Other Labs: Lab Results x24hrs 08/22/19 08/22/19 08/22/19 Range/Units 01:20 01:20 01:20 WBC 9.3 (4.8-10.8) x10^3/uL RBC 3.71 L (4.20-5.40) 10^6/uL Hgb 10.7 L (12.0-16.0) g/dL Hct 32.3 L (37.0-47.0) % MCV 87.1 (81.0-99.0) fL MCH 28.8 (27.0-31.0) pg MCHC 33.1 (32.0-36.0) g/dL RDW 14.1 (12.0-15.0) % Plt Count 304 (130-450) 10^3/uL MPV 10.1 (7.9-10.8) fL Neut # (Auto) 5.9 (1.5-6.6) 10^3/uL Lymph # (Auto) 2.6 (1.5-3.5) 10^3/uL [place] # (Auto) 0.6 (0.0-1.0) 10^3/uL Eos # (Auto) 0.1 (0.0-0.7) 10^3/uL Baso # (Auto) 0.0 (0.0-0.1) 10^3/uL Absolute Nucleated RBC 0.00 x10^3/uL Nucleated RBC % 0.0 /100WBC Sodium 136 (135-145) mmol/L Potassium 3.8 (3.5-5.0) mmol/L Chloride 105 (101-111) mmol/L Carbon Dioxide 22 (21-32) mmol/L Anion Gap 9.0 (6-13) BUN 14 (6-20) mg/dL Creatinine 0.6 (0.4-1.0) mg/dL Estimated GFR (MDRD) 125 (>89) Glucose 87 (70-100) mg/dL Calcium 8.0 L (8.5-10.3) mg/dL Urine Color Urine Clarity (CLEAR) Urine pH (5.0-7.5) PH Ur Specific [place] (1.002-1.030) Urine Protein (NEGATIVE) mg/dL Urine Glucose (UA) (NEGATIVE) mg/dL Urine Ketones (NEGATIVE) mg/dL Urine Occult Blood (NEGATIVE) Urine Nitrite (NEGATIVE) Urine Bilirubin (NEGATIVE) Urine Urobilinogen (NORMAL) E.U./dL Ur Leukocyte Esterase (NEGATIVE) Urine RBC (0-5) /HPF Urine WBC (0-5) /HPF Ur Squamous Epith Cells (<= Few) Amorphous Sediment /LPF Urine Bacteria (None Seen) /HPF Urine Culture Comments Membranes Rupture (NEGATIVE) Urine Opiates Screen (NEGATIVE) Ur Oxycodone Screen (NEGATIVE) Urine Methadone Screen (NEGATIVE) Ur Propoxyphene Screen (NEGATIVE) Ur Barbiturates Screen (NEGATIVE) Ur Tricyclics Screen (NEGATIVE) Ur Phencyclidine Scrn (NEGATIVE) Ur Amphetamine Screen (NEGATIVE) U Methamphetamines Scrn (NEGATIVE) U Benzodiazepines Scrn (NEGATIVE) Urine Cocaine Screen (NEGATIVE) U Cannabinoids Screen (NEGATIVE) Blood Type A POSITIVE Antibody Screen NEGATIVE 08/21/19 08/21/19 08/21/19 Range/Units 23:45 23:41 23:41 WBC (4.8-10.8) x10^3/uL RBC (4.20-5.40) 10^6/uL Hgb (12.0-16.0) g/dL Hct (37.0-47.0) % MCV (81.0-99.0) fL MCH (27.0-31.0) pg MCHC (32.0-36.0) g/dL RDW (12.0-15.0) % Plt Count (130-450) 10^3/uL MPV (7.9-10.8) fL Neut # (Auto) (1.5-6.6) 10^3/uL Lymph # (Auto) (1.5-3.5) 10^3/uL [place] # (Auto) (0.0-1.0) 10^3/uL Eos # (Auto) (0.0-0.7) 10^3/uL Baso # (Auto) (0.0-0.1) 10^3/uL Absolute Nucleated RBC x10^3/uL Nucleated RBC % /100WBC Sodium (135-145) mmol/L Potassium (3.5-5.0) mmol/L Chloride (101-111) mmol/L Carbon Dioxide (21-32) mmol/L Anion Gap (6-13) BUN (6-20) mg/dL Creatinine (0.4-1.0) mg/dL Estimated GFR (MDRD) (>89) Glucose (70-100) mg/dL Calcium (8.5-10.3) mg/dL Urine Color YELLOW Urine Clarity CLOUDY (CLEAR) Urine pH 6.0 (5.0-7.5) PH Ur Specific [place] >=1.030 H (1.002-1.030) Urine Protein 30 H (NEGATIVE) mg/dL Urine Glucose (UA) NEGATIVE (NEGATIVE) mg/dL Urine Ketones NEGATIVE (NEGATIVE) mg/dL Urine Occult Blood NEGATIVE (NEGATIVE) Urine Nitrite NEGATIVE (NEGATIVE) Urine Bilirubin NEGATIVE (NEGATIVE) Urine Urobilinogen 1 (NORMAL) (NORMAL) E.U./dL Ur Leukocyte Esterase NEGATIVE (NEGATIVE) Urine RBC 0-5 (0-5) /HPF Urine WBC 0-3 (0-5) /HPF Ur Squamous Epith Cells RARE Squamous (<= Few) Amorphous Sediment Marked /LPF Urine Bacteria None Seen (None Seen) /HPF Urine Culture Comments NOT INDICATED Membranes Rupture NEGATIVE (NEGATIVE) Urine Opiates Screen NEGATIVE (NEGATIVE) Ur Oxycodone Screen NEGATIVE (NEGATIVE) Urine Methadone Screen NEGATIVE (NEGATIVE) Ur Propoxyphene Screen NEGATIVE (NEGATIVE) Ur Barbiturates Screen NEGATIVE (NEGATIVE) Ur Tricyclics Screen NEGATIVE (NEGATIVE) Ur Phencyclidine Scrn NEGATIVE (NEGATIVE) Ur Amphetamine Screen POSITIVE H (NEGATIVE) U Methamphetamines Scrn POSITIVE H (NEGATIVE) U Benzodiazepines Scrn NEGATIVE (NEGATIVE) Urine Cocaine Screen POSITIVE H (NEGATIVE) U Cannabinoids Screen NEGATIVE (NEGATIVE) Blood Type Antibody Screen
[2019-08-22] MEDS ORDERED: MAGNESIUM SULFATE IV SCH ×6 (12:00)
[2019-08-22] MEDS ORDERED: THIAMINE IV SCH ×6 (12:00)
[2019-08-22] MEDS ORDERED: MULTIVITAMIN IV SCH ×6 (12:00)
[2019-08-22] MEDS ORDERED: FOLIC ACID IV SCH ×6 (12:00)
[2019-08-22] MEDS ORDERED: [UNRECOGNIZED DRUG - OTHER] IV SCH ×6 (12:00)
--- NOTE | 2019-08-22 15:23 | PROVIDER PROGRESS NOTE ---
Subjective - Prog Note Date Prog Note Date: 08/22/19 Prog Note Time: 15:21 - Subjective Subjective: Pt voiced desire for rehab. Have found bed for her at [facility]; in-patient treatment in Will arrange transport. Objective - Vital Signs/Intake & Output Vital Signs: Vital Signs x48h Temp Pulse Pulse Resp BP Pulse Ox 08/22/19 15:15 91 18 08/22/19 14:23 97.9 F 108 H 18 114/83 H 97 08/22/19 11:39 91 14 08/22/19 07:47 91 14 Intake & Output: Intake & Output 08/19/19 08/20/19 08/21/19 08/22/19 23:59 23:59 23:59 23:59 Intake Total 4485.2 Balance 4485.2 - Lab Results Fish Bones: 08/22/19 01:20 08/22/19 01:20 Other Labs: Lab Results x24hrs 08/22/19 08/22/19 08/22/19 Range/Units 01:20 01:20 01:20 WBC 9.3 (4.8-10.8) x10^3/uL RBC 3.71 L (4.20-5.40) 10^6/uL Hgb 10.7 L (12.0-16.0) g/dL Hct 32.3 L (37.0-47.0) % MCV 87.1 (81.0-99.0) fL MCH 28.8 (27.0-31.0) pg MCHC 33.1 (32.0-36.0) g/dL RDW 14.1 (12.0-15.0) % Plt Count 304 (130-450) 10^3/uL MPV 10.1 (7.9-10.8) fL Neut # (Auto) 5.9 (1.5-6.6) 10^3/uL Lymph # (Auto) 2.6 (1.5-3.5) 10^3/uL [place] # (Auto) 0.6 (0.0-1.0) 10^3/uL Eos # (Auto) 0.1 (0.0-0.7) 10^3/uL Baso # (Auto) 0.0 (0.0-0.1) 10^3/uL Absolute Nucleated RBC 0.00 x10^3/uL Nucleated RBC % 0.0 /100WBC Sodium 136 (135-145) mmol/L Potassium 3.8 (3.5-5.0) mmol/L Chloride 105 (101-111) mmol/L Carbon Dioxide 22 (21-32) mmol/L Anion Gap 9.0 (6-13) BUN 14 (6-20) mg/dL Creatinine 0.6 (0.4-1.0) mg/dL Estimated GFR (MDRD) 125 (>89) Glucose 87 (70-100) mg/dL Calcium 8.0 L (8.5-10.3) mg/dL Urine Color Urine Clarity (CLEAR) Urine pH (5.0-7.5) PH Ur Specific [place] (1.002-1.030) Urine Protein (NEGATIVE) mg/dL Urine Glucose (UA) (NEGATIVE) mg/dL Urine Ketones (NEGATIVE) mg/dL Urine Occult Blood (NEGATIVE) Urine Nitrite (NEGATIVE) Urine Bilirubin (NEGATIVE) Urine Urobilinogen (NORMAL) E.U./dL Ur Leukocyte Esterase (NEGATIVE) Urine RBC (0-5) /HPF Urine WBC (0-5) /HPF Ur Squamous Epith Cells (<= Few) Amorphous Sediment /LPF Urine Bacteria (None Seen) /HPF Urine Culture Comments Membranes Rupture (NEGATIVE) Urine Opiates Screen (NEGATIVE) Ur Oxycodone Screen (NEGATIVE) Urine Methadone Screen (NEGATIVE) Ur Propoxyphene Screen (NEGATIVE) Ur Barbiturates Screen (NEGATIVE) Ur Tricyclics Screen (NEGATIVE) Ur Phencyclidine Scrn (NEGATIVE) Ur Amphetamine Screen (NEGATIVE) U Methamphetamines Scrn (NEGATIVE) U Benzodiazepines Scrn (NEGATIVE) Urine Cocaine Screen (NEGATIVE) U Cannabinoids Screen (NEGATIVE) Blood Type A POSITIVE Antibody Screen NEGATIVE 08/21/19 08/21/19 08/21/19 Range/Units 23:45 23:41 23:41 WBC (4.8-10.8) x10^3/uL RBC (4.20-5.40) 10^6/uL Hgb (12.0-16.0) g/dL Hct (37.0-47.0) % MCV (81.0-99.0) fL MCH (27.0-31.0) pg MCHC (32.0-36.0) g/dL RDW (12.0-15.0) % Plt Count (130-450) 10^3/uL MPV (7.9-10.8) fL Neut # (Auto) (1.5-6.6) 10^3/uL Lymph # (Auto) (1.5-3.5) 10^3/uL [place] # (Auto) (0.0-1.0) 10^3/uL Eos # (Auto) (0.0-0.7) 10^3/uL Baso # (Auto) (0.0-0.1) 10^3/uL Absolute Nucleated RBC x10^3/uL Nucleated RBC % /100WBC Sodium (135-145) mmol/L Potassium (3.5-5.0) mmol/L Chloride (101-111) mmol/L Carbon Dioxide (21-32) mmol/L Anion Gap (6-13) BUN (6-20) mg/dL Creatinine (0.4-1.0) mg/dL Estimated GFR (MDRD) (>89) Glucose (70-100) mg/dL Calcium (8.5-10.3) mg/dL Urine Color YELLOW Urine Clarity CLOUDY (CLEAR) Urine pH 6.0 (5.0-7.5) PH Ur Specific [place] >=1.030 H (1.002-1.030) Urine Protein 30 H (NEGATIVE) mg/dL Urine Glucose (UA) NEGATIVE (NEGATIVE) mg/dL Urine Ketones NEGATIVE (NEGATIVE) mg/dL Urine Occult Blood NEGATIVE (NEGATIVE) Urine Nitrite NEGATIVE (NEGATIVE) Urine Bilirubin NEGATIVE (NEGATIVE) Urine Urobilinogen 1 (NORMAL) (NORMAL) E.U./dL Ur Leukocyte Esterase NEGATIVE (NEGATIVE) Urine RBC 0-5 (0-5) /HPF Urine WBC 0-3 (0-5) /HPF Ur Squamous Epith Cells RARE Squamous (<= Few) Amorphous Sediment Marked /LPF Urine Bacteria None Seen (None Seen) /HPF Urine Culture Comments NOT INDICATED Membranes Rupture NEGATIVE (NEGATIVE) Urine Opiates Screen NEGATIVE (NEGATIVE) Ur Oxycodone Screen NEGATIVE (NEGATIVE) Urine Methadone Screen NEGATIVE (NEGATIVE) Ur Propoxyphene Screen NEGATIVE (NEGATIVE) Ur Barbiturates Screen NEGATIVE (NEGATIVE) Ur Tricyclics Screen NEGATIVE (NEGATIVE) Ur Phencyclidine Scrn NEGATIVE (NEGATIVE) Ur Amphetamine Screen POSITIVE H (NEGATIVE) U Methamphetamines Scrn POSITIVE H (NEGATIVE) U Benzodiazepines Scrn NEGATIVE (NEGATIVE) Urine Cocaine Screen POSITIVE H (NEGATIVE) U Cannabinoids Screen NEGATIVE (NEGATIVE) Blood Type Antibody Screen
--- NOTE | 2019-08-22 16:12 | Discharge Plan ---
Discharge Plan Problem Reviewed?: Yes Disposition: 02 Transfer Acute Care Hosp Condition: Fair Diet: Regular Activity Restrictions: Activity as Tolerated Shower Restrictions: No No Smoking: If you smoke, Please STOP! Call for help.
--- NOTE | 2019-08-22 16:13 | DISCHARGE SUMMARY ---
Discharge Summary Admit Date: 08/21/19 Discharge Date: 08/22/19 Discharging Provider: Darlene Casas Code Status: Attempt Resuscitation - DIAGNOSES Admission Diagnoses: 37w3d Polysubstance abuse Iron deficiency anemia Trichomonas/BV contractions - HPI History of Present Illness: 23yo at 37w3d by first trimester scan not c/w LMP presents with c/o several days of contractions, more intense today and intermittent fluid leak. No gushes, no leaks last evening. No bleeding. Normal activity. No n/v/f/c or dysuria. Admits to smoking cocaine and meth right before she called EMS to come here for evaluation. Scant care, h/o SAB x3, delivery at 34.5 weeks per patient. 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 Pt expressed desire for rehab Fetus remained stable, category 1 Labs were otherwise unremarkable. Her plan for contraception is Nexplanon; insurance forms obtained - ALLERGIES Allergies/Adverse Reactions: Allergies Allergy/AdvReac Type Severity Reaction Status Date / Time cephalexin [From Keflex] Allergy Rash Verified 07/01/19 16:31 - MEDICATIONS Home Medications: Ambulatory Orders Medication Instructions Recorded Confirmed Albuterol Sulf [Ventolin Hfa 1 - 2 puffs INH Q4HR PRN #1 inhaler 07/01/19 08/22/19 Inhaler] - PHYSICAL EXAM AT DISCHARGE General Appearance: positive: No acute distress, Alert Respiratory: positive: No respiratory distress Cardiovascular: positive: Regular rate & rhythm Abdomen: positive: Non-tender Neurologic/Psychiatric: positive: Oriented x3 - LABS Result Diagrams: 08/22/19 01:20 08/22/19 01:20 - FOLLOW UP Follow Up: Pt was transferred by ambulance to [facility] inpatient treatment for substance abuse in .
[2019-08-22 16:42] VITALS: BP 125/74
== END 2019-08-22 16:10 | disposition short-term general hospital (02) ==
LOC: WFO 23:17 → FBP 23:19 → WFO 08-22 01:04 → FBP 08-22 01:05
PROVIDERS: ADMIT Obstetrics & Gynecology; ATTEND Obstetrics & Gynecology
DX: O99.323 Drug use complicating pregnancy, third trimester (principal); F15.10 Other stimulant abuse, uncomplicated; F14.10 Cocaine abuse, uncomplicated; O13.3 Gestational [pregnancy-induced] hypertension without significant proteinuria, third trimester; O99.89 Other specified diseases and conditions complicating pregnancy, childbirth and the puerperium; R00.0 Tachycardia, unspecified; O99.013 Anemia complicating pregnancy, third trimester; D50.9 Iron deficiency anemia, unspecified; O98.313 Other infections with a predominantly sexual mode of transmission complicating pregnancy, third trimester; A59.9 Trichomoniasis, unspecified; O99.333 Smoking (tobacco) complicating pregnancy, third trimester; F17.210 Nicotine dependence, cigarettes, uncomplicated; O99.513 Diseases of the respiratory system complicating pregnancy, third trimester; J45.909 Unspecified asthma, uncomplicated; O09.33 Supervision of pregnancy with insufficient antenatal care, third trimester; O09.293 Supervision of pregnancy with other poor reproductive or obstetric history, third trimester; Z3A.37 37 weeks gestation of pregnancy; Z79.51 Long term (current) use of inhaled steroids
CPT/HCPCS: 36415; 80048; 80306; 81001; 84112; 85025; 86780; 86850; 86900; 86901; 94640; 96361; 96365; 96366; 96367; 96368; 96375; 99213; A9270; J1750; J3411; J7120; 87086

== ENCOUNTER 2019-08-22 16:14 | Outpatient (CLI) | payer MEDICAID | END 2019-08-22 16:15 | disposition short-term general hospital (02) | LOC: EMS 16:14 | PROVIDERS: ATTEND Surgery | DX: O99.323 Drug use complicating pregnancy, third trimester (principal) | CPT/HCPCS: A0425; A0428 ==

== ENCOUNTER 2019-09-03 19:15 | Emergency (ER) | payer MEDICAID ==
[2019-09-03 19:50] LABS: BASOPHILS % (AUTO) 0.4 %; EOSINOPHILS # (AUTO) 0.1 10^3/uL (0.0-0.7); EOSINOPHILS % (AUTO) 1.5 %; HGB - HEMOGLOBIN 9.6 g/dL (12.0-16.0); LYMPHOCYTES # (AUTO) 2.5 10^3/uL (1.5-3.5); LYMPHOCYTES % (AUTO) 31.1 %; MEAN CORPUSCULAR HEMOGLOBIN 28.8 pg (27.0-31.0); MEAN CORPUSCULAR HGB CONC 31.6 g/dL (32.0-36.0); MEAN CORPUSCULAR VOLUME 91.3 fL (81.0-99.0); MEAN PLATELET VOLUME 8.7 fL (7.9-10.8); MONOCYTES # (AUTO) 0.7 10^3/uL (0.0-1.0); MONOCYTES % (AUTO) 8.9 %; NEUTROPHILS # (AUTO) 4.5 10^3/uL (1.5-6.6); NEUTROPHILS % (AUTO) 56.6 %; PLT - PLATELET COUNT 378 10^3/uL (130-450); RED BLOOD COUNT 3.33 10^6/uL (4.20-5.40); RED CELL DISTRIBUTION WIDTH 17.2 % (12.0-15.0)
[2019-09-03 20:02] LABS: MUDS CUTOFF CONCENTRATIONS CUTOFF CONC BELOW:
[2019-09-03 20:04] LABS: ALBUMIN 2.5 g/dL (3.2-5.5); ALBUMIN/GLOBULIN RATIO 0.6 (1.0-2.2); BILIRUBIN,TOTAL 0.3 mg/dL (0.2-1.0); CALCIUM 8.9 mg/dL (8.5-10.3); CREATININE 0.7 mg/dL (0.4-1.0); TOTAL PROTEIN 6.6 g/dL (6.7-8.2)
[2019-09-03 20:05] LABS: BILIRUBIN,URINE NEGATIVE (NEGATIVE); GLUCOSE, URINE (UA) NEGATIVE (NEGATIVE); KETONES,URINE (UA) NEGATIVE (NEGATIVE); LEUKOCYTE ESTERASE, URINE TRACE (NEGATIVE); NITRITE,URINE NEGATIVE (NEGATIVE); OCCULT BLOOD,URINE SMALL (NEGATIVE); PROTEIN,URINE NEGATIVE (NEGATIVE); UROBILINOGEN,URINE 0.2 (NORMAL) E.U./dL (NORMAL)
[2019-09-03 20:06] LABS: CLARITY,URINE CLEAR (CLEAR)
--- NOTE | 2019-09-03 20:09 | ED Physician Documentation ---
History of Present Illness - Stated complaint Stated Complaint: SWELLING/PX - Chief complaint Chief Complaint: Abd Pain - History obtained from History obtained from: Patient - History of Present Illness Pain level max: 5 Pain level now: 5 - Additonal information Additional information: 23 year old female 9 days s/p vaginal delivery Complains of swelling to the bilateral lower extremities. She complains of pain in both arms, both legs and her abdomen. She states that her vaginal bleeding is currently light. No discharge. No vomiting. No fevers. She states that her abdomen is still swollen as well. No constipation or diarrhea. She states she was discharged from [facility] yesterday. 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 : None HEENT: None Psych: Depression, Anxiety Musculoskeletal: None Derm: Eczema - Past Surgical History Past Surgical History: No - Present Medications Home Medications: Ambulatory Orders Medication Instructions Recorded Confirmed Albuterol Sulf [Ventolin Hfa 2 puffs INH Q4HR PRN 09/03/19 09/03/19 Inhaler] Buprenorphine HCl/Naloxone HCl 1 tab DAILY 09/03/19 09/03/19 [Suboxone 2-0.5 mg Sl tab] Gabapentin 100 mg BID 09/03/19 09/03/19 Mirtazapine 15 mg DAILY PM 09/03/19 09/03/19 Pnv No.95/Ferrous Fum/Folic AC 1 tab DAILY 09/03/19 09/03/19 [ [place]] - Allergies Allergies/Adverse Reactions: Allergies Allergy/AdvReac Type Severity Reaction Status Date / Time cephalexin [From Keflex] Allergy Rash Verified 07/01/19 16:31 - Social History Does the pt smoke?: Yes Smoking Status: Current every day smoker Does the pt drink ETOH?: Yes Does the pt have substance abuse?: Yes - Immunizations Immunizations are current?: No - POLST Patient has POLST: No PD ED PE NORMAL - Vitals Vital signs reviewed: Yes - General General: Alert and oriented X 3, No acute distress, Well developed/nourished - HEENT HEENT: Moist mucous membranes - Neck Neck: Supple, no meningeal sign - Cardiac Cardiac: RRR, Strong equal pulses - Respiratory Respiratory: No respiratory distress, Clear bilaterally - Abdomen Abdomen: Normal bowel sounds, Soft, Non tender, Other (Mildly distended abdomen. No peritoneal signs.) - Derm Derm: Warm and dry - Extremities Extremities: No calf tenderness / cord, Other (1+ bilateral lower extremity pitting edema) - Neuro Neuro: Alert and oriented X 3 - Psych Psych: Normal mood, Normal affect Results - Vitals Vitals: Vital Signs - 24 hr 09/03/19 09/03/19 09/03/19 19:19 20:00 20:16 Temperature 36.9 C Heart Rate 118 H Respiratory 18 Rate Blood Pressure 145/104 H 155/111 H 143/85 H O2 Saturation 98 Oxygen O2 Source Room air - Labs Labs: Laboratory Tests 09/03/19 09/03/19 09/03/19 19:45 19:45 20:00 WBC 8.0 RBC 3.33 L Hgb 9.6 L Hct 30.4 L MCV 91.3 MCH 28.8 MCHC 31.6 L RDW 17.2 H Plt Count 378 MPV 8.7 Neut # (Auto) 4.5 Lymph # (Auto) 2.5 [place] # (Auto) 0.7 Eos # (Auto) 0.1 Baso # (Auto) 0.0 Absolute Nucleated RBC 0.00 Nucleated RBC % 0.0 Sodium 137 Potassium 3.9 Chloride 101 Carbon Dioxide 25 Anion Gap 11.0 BUN 21 H Creatinine 0.7 Estimated GFR (MDRD) 105 Glucose 90 Calcium 8.9 Total Bilirubin 0.3 AST 30 ALT 51 Alkaline Phosphatase 123 H Total Protein 6.6 L Albumin 2.5 L Globulin 4.1 Albumin/Globulin Ratio 0.6 L Lipase 20 L Urine Color Urine Clarity Urine pH Ur Specific [place] Urine Protein Urine Glucose (UA) Urine Ketones Urine Occult Blood Urine Nitrite Urine Bilirubin Urine Urobilinogen Ur Leukocyte Esterase Urine RBC Urine WBC Ur Squamous Epith Cells Urine Bacteria Ur Microscopic Review Urine Culture Comments Urine Opiates Screen NEGATIVE Ur Oxycodone Screen NEGATIVE Urine Methadone Screen NEGATIVE Ur Propoxyphene Screen NEGATIVE Ur Barbiturates Screen NEGATIVE Ur Tricyclics Screen NEGATIVE Ur Phencyclidine Scrn NEGATIVE Ur Amphetamine Screen NEGATIVE U Methamphetamines Scrn NEGATIVE U Benzodiazepines Scrn NEGATIVE Urine Cocaine Screen NEGATIVE U Cannabinoids Screen NEGATIVE 09/03/19 20:00 WBC RBC Hgb Hct MCV MCH MCHC RDW Plt Count MPV Neut # (Auto) Lymph # (Auto) [place] # (Auto) Eos # (Auto) Baso # (Auto) Absolute Nucleated RBC Nucleated RBC % Sodium Potassium Chloride Carbon Dioxide Anion Gap BUN Creatinine Estimated GFR (MDRD) Glucose Calcium Total Bilirubin AST ALT Alkaline Phosphatase Total Protein Albumin Globulin Albumin/Globulin Ratio Lipase Urine Color YELLOW Urine Clarity CLEAR Urine pH 8.0 H Ur Specific [place] 1.015 Urine Protein NEGATIVE Urine Glucose (UA) NEGATIVE Urine Ketones NEGATIVE Urine Occult Blood SMALL H Urine Nitrite NEGATIVE Urine Bilirubin NEGATIVE Urine Urobilinogen 0.2 (NORMAL) Ur Leukocyte Esterase TRACE H Urine RBC 0-5 Urine WBC 0-3 Ur Squamous Epith Cells NONE SEEN Urine Bacteria None Seen Ur Microscopic Review INDICATED Urine Culture Comments INDICATED Urine Opiates Screen Ur Oxycodone Screen Urine Methadone Screen Ur Propoxyphene Screen Ur Barbiturates Screen Ur Tricyclics Screen Ur Phencyclidine Scrn Ur Amphetamine Screen U Methamphetamines Scrn U Benzodiazepines Scrn Urine Cocaine Screen U Cannabinoids Screen PD MEDICAL DECISION MAKING - ED course Complexity details: reviewed results, re-evaluated patient, considered differential, d/w patient, d/w customer consultant (Discussed the case with Dr. French, OB on-call who recommends checking lab work. Does not recommend any imaging at this time. We will recheck the patient's blood pressure as well) ED course: Patient is well-appearing, nontoxic. Afebrile. Blood pressure decreased in the emergency department. No intervention needed. No significant lab abnormalities. We will have her follow-up with OB for further care. Abdomen remains soft, nontender on serial exam. Patient counseled regarding signs and symptoms for which I believe and urgent re-evaluation would be necessary. Patient with good understanding of and agreement to plan and is comfortable going home at this time This document was made in part using voice recognition software. While efforts are made to proofread this document, sound alike and grammatical errors may occur. Departure - Departure Disposition: 01 Home, Self Care Clinical Impression: Peripheral edema Condition: Good Instructions: Vaginal After, ED Edema Legs Bilateral Follow-Up: GUANACO DING ARNP [Primary Care Provider] - Within 1 week Comments: Return if you worsen. Follow-up with your doctor for further care. Your labs do not show any acute abnormalities tonight. Elevate your legs as much as possible. Drink water and avoid high salt foods.
[2019-09-03 20:13] LABS: BACTERIA,URINE None Seen /HPF (None Seen); RBC,URINE 0-5 /HPF (0-5); SQUAMOUS EPITHELIAL CELL,UR NONE SEEN (<= Few)
[2019-09-03 20:16] VITALS: BP 143/85
[2019-09-03 20:16] LABS: AMPHETAMINE SCREEN,URINE NEGATIVE (NEGATIVE); BENZODIAZEPINES SCREEN, URINE NEGATIVE (NEGATIVE); COCAINE SCREEN URINE NEGATIVE (NEGATIVE); METHADONE SCREEN, URINE NEGATIVE (NEGATIVE); METHAMPHETAMINES SCREEN, URINE NEGATIVE (NEGATIVE); OPIATE SCREEN, URINE NEGATIVE (NEGATIVE); OXYCODONE SCREEN, URINE NEGATIVE (NEGATIVE); PROPOXYPHENE SCREEN, URINE NEGATIVE (NEGATIVE); TRICYCLIC ANTIDEPRESSANT,URINE NEGATIVE (NEGATIVE)
== END 2019-09-03 20:37 | disposition home or self-care (01) ==
LOC: ED 19:15
DX: O90.89 Other complications of the puerperium, not elsewhere classified (principal); R60.0 Localized edema; O99.335 Smoking (tobacco) complicating the puerperium; F17.200 Nicotine dependence, unspecified, uncomplicated
CPT/HCPCS: 36415; 80053; 80306; 81001; 81003; 83690; 85025; 87086; 99283; 99284

== ENCOUNTER 2019-09-17 20:22 | Emergency (ER) | payer MEDICAID ==
[2019-09-17 20:34] VITALS: BP 125/75
--- NOTE | 2019-09-17 21:24 | ED Physician Documentation ---
History of Present Illness - Stated complaint Stated Complaint: ITCHY/THROAT TICKLE - Chief complaint Chief Complaint: General - History obtained from History obtained from: Patient (23-year-old woman is a couple weeks from vaginal delivery. She also has a long history of methamphetamine a abuse. She presents today with multiple varying complaints which included she thinks that the stuff is coming out of the areas that she is picking out on her arms and legs, she feels like something is moving in her throat and her hair is abnormally sticking to each other. 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 : None HEENT: None Psych: Depression, Anxiety Musculoskeletal: None Derm: Eczema - Past Surgical History Past Surgical History: No - Present Medications Home Medications: Ambulatory Orders Medication Instructions Recorded Confirmed Buprenorphine HCl/Naloxone HCl 1 tab DAILY 09/03/19 09/03/19 [Suboxone 2-0.5 mg Sl tab] Gabapentin 100 mg BID 09/03/19 09/03/19 Ivermectin 5 tab PO ONCE #10 tablet 09/17/19 - Allergies Allergies/Adverse Reactions: Allergies Allergy/AdvReac Type Severity Reaction Status Date / Time cephalexin [From Keflex] Allergy Rash Verified 09/17/19 20:34 - Social History Does the pt smoke?: Yes Smoking Status: Current every day smoker Does the pt drink ETOH?: Yes Does the pt have substance abuse?: Yes Substance Use and Type: Meth - Immunizations Immunizations are current?: No - POLST Patient has POLST: No PD ED PE NORMAL - Vitals Vital signs reviewed: Yes - General General: Alert and oriented X 3, No acute distress - HEENT HEENT: Pharynx benign - Neck Neck: Supple, no meningeal sign, No bony TTP - Derm Derm: Other (Multiple picked at lesions on the skin, no active infections.) - Neuro Neuro: Alert and oriented X 3, Normal speech Results - Vitals Vitals: Vital Signs - 24 hr 09/17/19 20:25 Temperature 37.2 C Heart Rate 106 H Respiratory 18 Rate Blood Pressure 125/75 O2 Saturation 98 Oxygen O2 Source Room air PD MEDICAL DECISION MAKING - ED course ED course: 23-year-old woman with methamphetamine abuse presents with parasitosis, she is concerned that she may have tapeworms from her dog. Also lice. Seems not unreasonable to trial some ivermectin as it is a fairly benign medication. Departure - Departure Disposition: Home, Self Care Clinical Impression: Parasitosis Condition: Good Record reviewed to determine appropriate education?: Yes Instructions: ED Lice Head Prescriptions: Ivermectin 5 tab PO ONCE #10 tablet Comments: Call your doctor to arrange a follow-up appointment, make the next available appointment. In the interim, return anytime if worse or if new symptoms develop.
== END 2019-09-17 21:34 | disposition home or self-care (01) ==
LOC: ED 20:22
DX: O98.83 Other maternal infectious and parasitic diseases complicating the puerperium (principal); B85.2 Pediculosis, unspecified; O99.325 Drug use complicating the puerperium; F15.10 Other stimulant abuse, uncomplicated; O99.335 Smoking (tobacco) complicating the puerperium; F17.200 Nicotine dependence, unspecified, uncomplicated
CPT/HCPCS: 99282

== ENCOUNTER 2019-09-22 02:59 | Outpatient (CLI) | payer MEDICAID | END 2019-09-22 03:00 | disposition critical access hospital (66) | LOC: EMS 02:59 | PROVIDERS: ATTEND Surgery | DX: H57.12 Ocular pain, left eye (principal); R60.0 Localized edema | CPT/HCPCS: A0425; A0429; A0999 ==

== ENCOUNTER 2019-09-22 03:21 | Emergency (ER) | payer MEDICAID ==
--- NOTE | 2019-09-22 03:11 | ED Physician Documentation ---
History of Present Illness - Stated complaint Stated Complaint: LT EYE BURNING AND SWELLING - History obtained from History obtained from: Patient (Patient is a 23-year-old female who presents with a chief complaint of left eye pain, swelling, purulent discharge and vision loss. She reports a history of IV drug abuse she reports that she currently is using meth. She denies any foreign body to the eye or trauma to the eye or foreign substances), Other (Patient denies any history of corneal refractive surgery denies any treatment prior to arrival denies any trauma to the eye or chemical substances to the eye.Patient denies any history of sexually transmitted diseases denies any exposure to chemicals or body fluids.) Review of Systems Constitutional: reports: Reviewed and negative Eyes: reports: Loss of vision, Decreased vision, Photophobia, Discharge, Irritation Ears: reports: Reviewed and negative Nose: reports: Reviewed and negative Throat: reports: Reviewed and negative Cardiac: reports: Reviewed and negative Respiratory: reports: Reviewed and negative GI: reports: Reviewed and negative : reports: Reviewed and negative Skin: reports: Reviewed and negative Musculoskeletal: reports: Reviewed and negative Neurologic: reports: Reviewed and negative Psychiatric: reports: Reviewed and negative Endocrine: reports: Reviewed and negative Immunocompromised: reports: Reviewed and negative PD PAST MEDICAL HISTORY - Present Medications Home Medications: Ambulatory Orders Medication Instructions Recorded Confirmed Buprenorphine HCl/Naloxone HCl 1 tab DAILY 09/03/19 09/03/19 [Suboxone 2-0.5 mg Sl tab] Gabapentin 100 mg BID 09/03/19 09/03/19 Ivermectin 5 tab PO ONCE #10 tablet 09/17/19 - Allergies Allergies/Adverse Reactions: Allergies Allergy/AdvReac Type Severity Reaction Status Date / Time cephalexin [From Keflex] Allergy Rash Verified 09/17/19 20:34 PD ED PE NORMAL - Vitals Vital signs reviewed: Yes - General General: Alert and oriented X 3, No acute distress, Well developed/nourished - HEENT HEENT: PERRL (large amount of purulent discharge from orbit. globe ttp. hypopyon present. photphobia present. patient unable to open eye.), Other (Left eye is closed shut there is diffuse erythema and edema surrounding the left orbit, there is purulent discharge present there is diffuse chemosis of the conjunctiva there is large amounts of purulent material in the eye, unable to be completely examined secondary to edema and discharge and p) - Neck Neck: Supple, no meningeal sign - Cardiac Cardiac: RRR, No murmur - Respiratory Respiratory: Clear bilaterally - Abdomen Abdomen: Normal bowel sounds, Soft, Non tender, Non distended - Derm Derm: Warm and dry - Extremities Extremities: No deformity - Neuro Neuro: Alert and oriented X 3 - Psych Psych: Normal mood, Normal affect Results - Vitals Vitals: Vital Signs - 24 hr 09/22/19 09/22/19 09/22/19 03:20 04:48 06:12 Temperature 37.1 C Heart Rate 99 96 80 Respiratory 20 20 14 Rate Blood Pressure 125/78 124/80 O2 Saturation 100 98 98 Oxygen O2 Source Room air - Labs Labs: Laboratory Tests 09/22/19 09/22/19 09/22/19 03:55 03:55 03:55 WBC 7.6 RBC 4.10 L Hgb 11.4 L Hct 36.8 L MCV 89.8 MCH 27.8 MCHC 31.0 L RDW 16.9 H Plt Count 464 H MPV 9.1 Neut # (Auto) 4.7 Lymph # (Auto) 2.3 [place] # (Auto) 0.4 Eos # (Auto) 0.2 Baso # (Auto) 0.0 Absolute Nucleated RBC 0.00 Nucleated RBC % 0.0 ESR Sodium 139 Potassium 3.8 Chloride 105 Carbon Dioxide 22 Anion Gap 12.0 BUN 16 Creatinine 0.8 Estimated GFR (MDRD) 90 Glucose 81 Lactic Acid 0.8 Calcium 9.1 Total Bilirubin 0.6 AST 19 ALT 22 Alkaline Phosphatase 98 C-React Prot High Sens 10.9 Total Protein 8.0 Albumin 4.3 Globulin 3.7 Albumin/Globulin Ratio 1.2 Lipase 24 Ethyl Alcohol < 5.0 09/22/19 03:55 WBC RBC Hgb Hct MCV MCH MCHC RDW Plt Count MPV Neut # (Auto) Lymph # (Auto) [place] # (Auto) Eos # (Auto) Baso # (Auto) Absolute Nucleated RBC Nucleated RBC % ESR 46 H Sodium Potassium Chloride Carbon Dioxide Anion Gap BUN Creatinine Estimated GFR (MDRD) Glucose Lactic Acid Calcium Total Bilirubin AST ALT Alkaline Phosphatase C-React Prot High Sens Total Protein Albumin Globulin Albumin/Globulin Ratio Lipase Ethyl Alcohol PD MEDICAL DECISION MAKING - ED course Complexity details: reviewed results, re-evaluated patient, considered differe ntial (This patient's presentation is highly concerning for cellulitis, although rare it is also concerning for possible bacterial endophthalmitis.Also could be advanced bacterial conjunctivitis.), d/w patient, d/w bridal stylist sales consultant (06:30 dr. mendoza / Lamination Operator at [facility] emergency department has accepted this patient as a transfer. Patient updated and agreeable COBRA forms completed. ) Departure - Departure Disposition: 02 Transfer Acute Care Hosp Clinical Impression: Endophthalmitis Qualifiers: Laterality: left Qualified Code(s): H44.002 - Unspecified purulent endophthalmitis, left eye Condition: Stable
[2019-09-22] MEDS ORDERED: VANCOMYCIN INJ 1 GM in SODIUM CHLORIDE 0.9% 500 ML IV STA (03:39)
[2019-09-22] MEDS ORDERED: SODIUM CHLORIDE 0.9% 1,000 ML IV STA (03:39)
[2019-09-22] MEDS ORDERED: cefTRIAXone 1 GM in SODIUM CHLORIDE 0.9% MINIBAG 100 ML IV STA (03:41)
[2019-09-22] MEDS ORDERED: diphenhydrAMINE INJ 50 MG/ML VIAL IVP STA (03:41)
[2019-09-22] MEDS ORDERED: PROPARACAINE 0.5% OPHTH DROPS 15 ML LEFTEYE STA (03:57)
[2019-09-22 04:10] LABS: BASOPHILS % (AUTO) 0.5 %; EOSINOPHILS # (AUTO) 0.2 10^3/uL (0.0-0.7); HGB - HEMOGLOBIN 11.4 g/dL (12.0-16.0); LYMPHOCYTES # (AUTO) 2.3 10^3/uL (1.5-3.5); LYMPHOCYTES % (AUTO) 30.2 %; MEAN CORPUSCULAR HEMOGLOBIN 27.8 pg (27.0-31.0); MEAN CORPUSCULAR VOLUME 89.8 fL (81.0-99.0); MEAN PLATELET VOLUME 9.1 fL (7.9-10.8); MONOCYTES # (AUTO) 0.4 10^3/uL (0.0-1.0); MONOCYTES % (AUTO) 5.4 %; NEUTROPHILS # (AUTO) 4.7 10^3/uL (1.5-6.6); NEUTROPHILS % (AUTO) 61.6 %; PLT - PLATELET COUNT 464 10^3/uL (130-450); RED CELL DISTRIBUTION WIDTH 16.9 % (12.0-15.0); WHITE BLOOD COUNT 7.6 x10^3/uL (4.8-10.8)
[2019-09-22] MEDS ORDERED: IOVERSOL 320 100 ML VIAL IVP ONE ×2 (04:13→04:56)
[2019-09-22 04:23] LABS: ALBUMIN 4.3 g/dL (3.2-5.5); ALBUMIN/GLOBULIN RATIO 1.2 (1.0-2.2); ALKALINE PHOSPHATASE 98 IU/L (42-121); ALT ALANINE AMINOTRANSFERASE 22 IU/L (10-60); AST ASPARTATE AMINOTRANSFERASE 19 IU/L (10-42); BILIRUBIN,TOTAL 0.6 mg/dL (0.2-1.0); BUN - BLOOD UREA NITROGEN 16 mg/dL (6-20); CALCIUM 9.1 mg/dL (8.5-10.3); CARBON DIOXIDE - CO2 22 mmol/L (21-32); CHLORIDE 105 mmol/L (101-111); CREATININE 0.8 mg/dL (0.4-1.0); CRP HIGH SENSITIVITY 10.9 mg/L; GLUCOSE 81 mg/dL (70-100); LIPASE 24 U/L (22-51); SODIUM 139 mmol/L (135-145)
[2019-09-22] MEDS ORDERED: AZITHROMYCIN 250 MG TABLET PO STA (05:57)
[2019-09-22 08:06] VITALS: BP 114/75
--- NOTE | 2019-09-22 10:04 | CT Report ---
PROCEDURE: ORBITS W INDICATIONS: left eye infection CONTRAST: IV CONTRAST: Optiray 320 ml: TECHNIQUE: After the administration of intravenous contrast, 3.0 mm axial images acquired through the orbits, wi th coronal reformatting. COMPARISON: None FINDINGS: Image quality: Excellent. Orbits: At the anterolateral margin of the inferior left globe, there is a rim-enhancing fluid collec tion measuring approximately 16 x 20 x 2 mm. Small focus of gas is identified. Adjacent periorbital s oft tissue edema is present. No retrobulbar involvement is identified. The optic nerves are normal i n size and enhancement. The extra-ocular muscles are normal and symmetrical in appearance. Lacrimal glands are normal. Optic chiasm is normal. Intracranial: The pituitary gland is normal, without sellar or suprasellar masses. Visualized cereb ral hemispheres, brainstem, and spinal cord appear normal. Bones and sinuses: Visualized calvarium and facial bones appear intact. Visualized sinuses demonstr ate minimal scattered mucosal thickening. The mastoids are clear. IMPRESSION: 1. Left anterior inferior periorbital soft tissue edema with small focus of fluid collection suggesti ve of abscess. However, recommend correlation to recent trauma or surgical intervention as other etio logies of fluid collection. The above findings are concordant with preliminary report. Reviewed by: Kathryn Charles MD on 09/22/2019 10:03 AM PDT Approved by: Kathryn Charles MD on 09/22/2019 10:03 AM PDT Station ID: [id number]
== END 2019-09-22 09:09 | disposition short-term general hospital (02) ==
LOC: EDUNIT# → ED 03:21
DX: H44.002 Unspecified purulent endophthalmitis, left eye (principal); H11.422 Conjunctival edema, left eye; H20.052 Hypopyon, left eye
CPT/HCPCS: 36415; 70481; 80053; 80320; 83605; 83690; 85025; 85651; 86141; 87040; 96365; 96366; 96367; 96375; 99284; 99285; A9270; J1200; J3370; J3490; Q9967

== ENCOUNTER 2021-02-01 15:35 | Emergency (ER) | payer OTHER, MEDICAID ==
[2021-02-01 15:48] VITALS: BP 132/74
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
== END 2021-02-01 18:41 | disposition home or self-care (01) ==
LOC: ED 15:35
DX: Z04.41 Encounter for examination and observation following alleged adult rape (principal); F17.200 Nicotine dependence, unspecified, uncomplicated
CPT/HCPCS: 99281

== ENCOUNTER 2021-02-11 10:07 | Outpatient (CLI) | payer MEDICAID ==
--- NOTE | 2021-02-11 14:11 | XRAY Report ---
PROCEDURE: Ankle 3 View RT INDICATIONS: R ANKLE PX TECHNIQUE: 3 views of the ankle were acquired. COMPARISON: None. FINDINGS: No acute fracture. Os trigonum incidentally noted. IMPRESSION: No acute findings. If the patient's pain or other symptoms persist, consider further leonarda luation with MRI. Reviewed by: Jose Alfredo Cochran MD on 02/11/2021 2:09 PM PST Approved by: Jose Alfredo Cochran MD on 02/11/2021 2:09 PM PST Station ID: [id number]
== END 2021-02-11 23:59 | disposition home or self-care (01) ==
LOC: DI.N 10:07
PROVIDERS: ATTEND Family Medicine
DX: M25.571 Pain in right ankle and joints of right foot (principal)

== ENCOUNTER 2021-11-03 04:36 | Outpatient (CLI) | payer MEDICAID | END 2021-11-03 04:37 | disposition critical access hospital (66) | LOC: EMS 04:36 | DX: M79.89 Other specified soft tissue disorders (principal); M79.671 Pain in right foot; R26.2 Difficulty in walking, not elsewhere classified | CPT/HCPCS: A0425; A0429; A0999 ==

== ENCOUNTER 2021-11-03 04:39 | Emergency (ER) | payer MEDICAID ==
[2021-11-03] MEDS ORDERED: SULFAMETH/TRIMETH DS 800/160 MG TABLET PO STA (05:01)
--- NOTE | 2021-11-03 05:33 | ED Physician Documentation ---
PD HPI LOWER EXT INJURY - Stated complaint Stated Complaint: R FOOT INFECTION - Chief complaint Chief Complaint: Wound - Additional information Additional information: Patient is 25-year-old female presenting to the emergency department with concern for right foot infection and injury. Endorses for history of homelessness, polysubstance abuse including fentanyl and active methamphetamine use. Reports swelling to the top of her foot that has been ongoing for greater than 1 month. Also reports recently dropped a book on the top of her foot. Review of Systems Ten Systems: 10 systems reviewed and negative Constitutional: denies: Fever Eyes: denies: Loss of vision Ears: denies: Loss of hearing Nose: denies: Rhinorrhea / runny nose Throat: denies: Dental pain / toothache Cardiac: denies: Chest pain / pressure Respiratory: denies: Dyspnea GI: denies: Abdominal Pain : denies: Dysuria PD PAST MEDICAL HISTORY - Past Medical History Past Medical History: Yes Cardiovascular: None Respiratory: Asthma Neuro: None Endocrine/Autoimmune: None GI: Ulcers RAILROAD POLICE: None : None HEENT: None Psych: Depression, Anxiety Musculoskeletal: None Derm: Eczema - Past Surgical History Past Surgical History: No - Present Medications Home Medications: Ambulatory Orders Medication Instructions Recorded Confirmed Ibuprofen [Motrin] 800 mg PO Q8H PRN #30 tablet 11/03/21 Sulfamethox/Trimeth 800/160 1 each PO BID #14 tablet 11/03/21 [Bactrim Ds 800/160] - Allergies Allergies/Adverse Reactions: Allergies Allergy/AdvReac Type Severity Reaction Status Date / Time cephalexin [From Keflex] Allergy Rash Verified 11/03/21 04:56 - Social History Does the pt smoke?: Yes Smoking Status: Current every day smoker Does the pt drink ETOH?: Yes Does the pt have substance abuse?: Yes Substance Use and Type: Marijuana, Meth, Other - Immunizations Immunizations are current?: Yes - POLST Patient has POLST: No PD ED PE NORMAL - General General: Alert and oriented X 3, No acute distress, Well developed/nourished - HEENT HEENT: Atraumatic, PERRL, EOMI, Ears normal, Moist mucous membranes, Pharynx benign - Neck Neck: Supple, no meningeal sign, No bony TTP, No adenopathy - Cardiac Cardiac: RRR, No murmur, No gallop - Respiratory Respiratory: No respiratory distress - Abdomen Abdomen: Normal bowel sounds - Female Female : Deferred - Extremities Extremities: Other (There is a moderate amount of erythema and soft tissue swelling to the dorsum of the patient's foot. [id number] ultrasonography does not demonstrate any abnormal fluid collection.) Results - Vitals Vitals: Vital Signs - 24 hr 11/03/21 04:41 Temperature 37.2 C Heart Rate 94 Respiratory 16 Rate Blood Pressure 112/77 O2 Saturation 97 Oxygen O2 Source Room air PD MEDICAL DECISION MAKING - ED course Complexity details: reviewed results, re-evaluated patient, d/w patient ED course: Patient is 25-year-old female with past medical significant for homelessness, polysubstance abuse presenting to the emergency department with swelling over the dorsum of her right foot that has been ongoing x1 month. Reports increasing swelling, redness, heat and pain with this area. Reports that she did drop a book on top of her foot a few days ago which have exacerbated her symptoms. Afebrile, hemodynamically stable. Some modest swelling with erythema but no abnormal fluid collection appreciated on [id number] ultrasonography. X-rays negative for acute fracture per my interpretation. Patient given dose of Bactrim for possible soft tissue infection as there was some cobblestoning appreciated on [id number] ultrasonography. Will discharge on ongoing course of Bactrim. Encouraged use of nonsteroidal anti-inflammatory medications, ice packs and elevation for symptomatic management. Encourage careful follow-up with primary care. Otherwise clear return precautions and follow-up instructions given prior to discharge. Departure - Departure Disposition: 01 Home, Self Care Clinical Impression: Cellulitis of foot, Crush injury of foot, Polysubstance abuse Instructions: ED Infec Skin Cellulitis Follow-Up: Martin Gustafson [Physician No Access] - Prescriptions: Sulfamethox/Trimeth 800/160 [Bactrim Ds 800/160] 1 each PO BID #14 tablet Ibuprofen [Motrin] 800 mg PO Q8H PRN #30 tablet PRN Reason: PAIN &/OR FEVER Comments: Thank you for allowing us to care for you this evening at [facility]. The ultrasound performed today by myself did not show any abscess or abnormal fluid collection in the x-rays do not show any clear or identifiable fracture. I will have her x-rays reviewed by a radiologist and if there is concern for small or occult fracture I will contact you directly. In the meantime would like you to begin a course of oral antibiotics. You received your first dose here in the emergency department. I will be writing you for 7 more days to take at home. Please fill this prescription and take as directed. Please follow-up with your primary care doctor if you are in need of a primary care doctor I have included contact information for a local area physician with whom you can follow-up. If it anytime you have any new or worsening symptoms please not hesitate to return.
[2021-11-03 05:48] VITALS: BP 116/77
--- NOTE | 2021-11-03 08:07 | XRAY Report ---
PROCEDURE: Foot 3 View RT INDICATIONS: crush injury TECHNIQUE: 3 views of the foot were acquired. COMPARISON: None FINDINGS: Bones: No fractures or dislocations. No suspicious bony lesions. Soft tissues: No tibiotalar joint effusion. Achilles tendon appears normal. IMPRESSION: No evidence of acute bony abnormality of the right foot. Findings are concordant with preliminary interpretation provided by [facility]. Reviewed by: Tucker Hoffman MD on 11/03/2021 7:05 AM [facility] Approved by: Tucker Hoffman MD on 11/03/2021 7:05 AM [facility] Station ID: [id number]
== END 2021-11-03 05:48 | disposition home or self-care (01) ==
LOC: EDUNIT# → ED 04:39
DX: L03.115 Cellulitis of right lower limb (principal); S97.81XA Crushing injury of right foot, initial encounter; W20.8XXA Other cause of strike by thrown, projected or falling object, initial encounter; F17.200 Nicotine dependence, unspecified, uncomplicated; F19.10 Other psychoactive substance abuse, uncomplicated; Z59.00 Homelessness unspecified
CPT/HCPCS: 73630; 99283; 99284; A9270

== ENCOUNTER 2023-04-06 05:01 | Outpatient (CLI) | payer MEDICAID | END 2023-04-06 23:59 | disposition critical access hospital (66) | LOC: EMS 05:01 | DX: R05.9 Cough, unspecified (principal); R06.02 Shortness of breath; R06.2 Wheezing | CPT/HCPCS: A0425; A0427; A0999 ==

== ENCOUNTER 2023-04-06 05:24 | Emergency (ER) | payer MEDICAID ==
[2023-04-06] MEDS ORDERED: CHERRY SYRUP 10 ML UDC PO ONE (06:37)
[2023-04-06] MEDS ORDERED: ALBUTEROL NEB 2.5 MG/3 ML INH STA (06:37)
[2023-04-06] MEDS ORDERED: DEXAMETHASONE 10 MG/ML VIAL PO STA (06:37)
--- NOTE | 2023-04-06 07:37 | ED Physician Documentation ---
PD HPI DYSPNEA - Stated complaint Stated Complaint: SOA - Chief complaint Chief Complaint: Resp - History obtained from History obtained from: Patient, EMS - Additional information Additional information: BIBA. HPI from patient, EMS. Patient complains of approximately 2 weeks of cough. For the past 2 days, she has been having wheezing and dyspnea on exertion. She feels this is similar to exacerbations of her chronic bronchitis for which she would typically use an albuterol inhaler. However, she is out of the albuterol inhaler. EMS notes 93% pulse ox on room air on their arrival. She received a DuoNeb en route and reports feeling improved by the time she is arrived. Patient denies pain including chest pain, denies fever. Review of Systems Constitutional: denies: Fever, Chills, Sweats Cardiac: denies: Chest pain / pressure, Pedal edema Respiratory: reports: Dyspnea, Cough, Wheezing. denies: Hemoptysis PD PAST MEDICAL HISTORY - Past Medical History Cardiovascular: None Respiratory: Asthma Neuro: None Endocrine/Autoimmune: None GI: Ulcers CLINICAL STUDIES SPECIALIST: None : None HEENT: None Psych: Depression, Anxiety Musculoskeletal: None Derm: Eczema - Past Surgical History Past Surgical History: No - Present Medications Home Medications: Ambulatory Orders Medication Instructions Recorded Confirmed Albuterol Sulf [Ventolin Hfa 1 - 2 puffs INH Q4HR PRN #1 each 04/06/23 Inhaler] Azithromycin 250 mg PO DAILY #4 tablet 04/06/23 predniSONE [Deltasone] 40 mg PO DAILY 4 Days #8 tablet 04/06/23 - Allergies Allergies/Adverse Reactions: Allergies Allergy/AdvReac Type Severity Reaction Status Date / Time cephalexin [From Keflex] Allergy Rash Verified 04/06/23 05:47 - Social History Does the pt smoke?: Yes Smoking Status: Current every day smoker Does the pt drink ETOH?: Yes Does the pt have substance abuse?: Yes Substance Use and Type: Other - Immunizations Immunizations are current?: Yes - POLST Patient has POLST: No PD ED PE NORMAL - Vitals Vital signs reviewed: Yes - General General: No acute distress, Well developed/nourished, Other (drowsy ) - Cardiac Cardiac: No murmur - Respiratory Respiratory: No respiratory distress PD ED PE EXPANDED - Cardiac Cardiac: Tachy, Regular Rhythm - Respiratory Respiratory: Decreased breath sounds Results - Vitals Vitals: Vital Signs - 24 hr 04/06/23 04/06/23 04/06/23 05:35 07:06 07:47 Temperature 36.8 C Heart Rate 112 H 98 76 Respiratory 20 18 14 Rate Blood Pressure 143/72 H 116/76 O2 Saturation 92 96 Oxygen O2 Source Room air - Labs Labs: Laboratory Tests 04/06/23 07:18 Nasal Adenovirus (PCR) NOT DETECTED Nasal B. parapertussis DNA (PCR) NOT DETECTED Nasal Coronavir 229E PCR NOT DETECTED Nasal Coronavir HKU1 PCR NOT DETECTED Nasal Coronavir NL63 PCR NOT DETECTED Nasal Coronavir OC43 PCR NOT DETECTED Nasal Enterovir/Rhinovir PCR NOT DETECTED Nasal Influenza B PCR NOT DETECTED Nasal Influenza A PCR NOT DETECTED Nasal Parainfluen 1 PCR NOT DETECTED Nasal Parainfluen 2 PCR NOT DETECTED Nasal Parainfluen 3 PCR NOT DETECTED Nasal Parainfluen 4 PCR NOT DETECTED Nasal RSV (PCR) NOT DETECTED Nasal B.pertussis DNA PCR NOT DETECTED Nasal C.pneumoniae (PCR) NOT DETECTED Jitendra Human Metapneumo PCR NOT DETECTED Nasal M.pneumoniae (PCR) NOT DETECTED Nasal SARS-CoV-2 (PCR) NOT DETECTED - Rads (name of study) chest xray Relevant Findings:: Prelim report reviewed, See rad report PD Medical Decision Making - ED course Complexity details: reviewed results, re-evaluated patient, considered differential, d/w patient ED course: Patient is given albuterol neb in ED (already received duoneb en route), as well as 10mg PO decadron. CXR shows bilateral perihilar bronchial wall thickening but also left suprahilar infiltrate suspicious for early pneumonia. She is given 500mg zithromax and rx for 250mg zithromax x 4 days. Also given prescriptions for albuterol MDI and prednisone 40mg QD x 4 days. Room air pulse ox prior to d/c 95-96%, NAD. Respiratory PCR panel is negative for viruses tested Departure - Departure Disposition: 01 Home, Self Care Clinical Impression: Pneumonia Qualifiers: Pneumonia type: due to unspecified organism Laterality: left Lung location: upp er lobe of lung Qualified Code(s): J18.9 - Pneumonia, unspecified organism Condition: Good Instructions: ED Pneumonia Adult Prescriptions: Albuterol Sulf [Ventolin Hfa Inhaler] 1 - 2 puffs INH Q4HR PRN #1 each PRN Reason: Shortness Of Air/Wheezing Azithromycin 250 mg PO DAILY #4 tablet predniSONE [Deltasone] 40 mg PO DAILY 4 Days #8 tablet Comments: Your chest xray shows the early stages of pneumonia. You were given the first dose of an antibiotic (azithromycin) in the emergency department and I am prescribing four more days of the antibiotic. I am also providing you with prescriptions for an albuterol inhaler, as well as four days of prednisone (steroid). Forms: PCP List
--- NOTE | 2023-04-06 08:13 | XRAY Report ---
PROCEDURE: Chest 2V INDICATIONS: cough, dyspnea, hypoxia TECHNIQUE: 2 views of the chest were acquired. COMPARISON: None. FINDINGS: Surgical changes and devices: None. Lungs and pleura: Left suprahilar infiltrate. Mild peribronchial wall thickening. Mediastinum: Mediastinal contours appear normal. Heart size is normal. Bones and chest wall: No suspicious bony lesions. Overlying soft tissues appear unremarkable. IMPRESSION: 1. Mild central bronchial wall thickening. 2. Left suprahilar infiltrate, possibly pneumonic. Reviewed by: Ta Kaur MD on 04/06/2023 8:12 AM [facility] Approved by: Ta Kaur MD on 04/06/2023 8:12 AM [facility] Station ID: [id number]
[2023-04-06] MEDS ORDERED: AZITHROMYCIN 250 MG TABLET PO STA ×2 (08:40→09:11)
[2023-04-06 08:43] LABS: B. PARAPERTUSSIS- RESP PCR PAN NOT DETECTED; B. PERTUSSIS- RESP PCR PANEL NOT DETECTED; C. PNEUMONIAE- RESP PCR PANEL NOT DETECTED; CORONAVIRUS 229E-RESP PCR NOT DETECTED; CORONAVIRUS HKU1-RESP PCR NOT DETECTED; CORONAVIRUS NL63-RESP PCR NOT DETECTED; CORONAVIRUS OC43-RESP PCR NOT DETECTED; HUMAN METAPNEUMOVIRUS NOT DETECTED; INFLUENZA A- RESP PCR PANEL NOT DETECTED; INFLUENZA B - RESP PCR PANEL NOT DETECTED; M. PNEUMONIAE- RESP PCR PANEL NOT DETECTED; PARAINFLUENZA VIRUS 1 NOT DETECTED; PARAINFLUENZA VIRUS 2 NOT DETECTED; PARAINFLUENZA VIRUS 3 NOT DETECTED; PARAINFLUENZA VIRUS 4 NOT DETECTED; RHINOVIRUS/ENTEROVIRUS NOT DETECTED; RSV- RESP PCR PANEL NOT DETECTED; SARS-CoV-2 -RESP PCR PANEL NOT DETECTED
[2023-04-06 09:22] VITALS: BP 119/76; O2SAT 91
--- NOTE | 2023-04-06 09:24 | ED Physician Documentation ---
ED Addendum - Addendum Addendum: 04/06/23 09:23 The patient has improved respiratory status. When resting her oxygenation is just about 90%, so still adequate. Awakens easily and sats then to 96%. Ate breakfast okay. She had come in with report of some fentanyl use as well as a exacerbation of her asthma. Nursing suggests discharged with a Narcan home kit. I placed the order for this.
== END 2023-04-06 09:25 | disposition home or self-care (01) ==
LOC: EDUNIT# → ED 05:24
DX: J18.9 Pneumonia, unspecified organism (principal); F17.200 Nicotine dependence, unspecified, uncomplicated
CPT/HCPCS: 71046; 87633; 94640; 99283; 99284; A9270

== ENCOUNTER 2023-05-12 00:04 | Outpatient (CLI) | payer MEDICAID | END 2023-05-12 23:59 | disposition critical access hospital (66) | LOC: EMS 00:04 | DX: R07.1 Chest pain on breathing (principal); R06.2 Wheezing; R05.9 Cough, unspecified; F11.90 Opioid use, unspecified, uncomplicated | CPT/HCPCS: A0425; A0427; A0999 ==

== ENCOUNTER 2023-05-12 00:21 | Emergency (ER) | payer MEDICAID ==
--- NOTE | 2023-05-12 01:15 | XRAY Report ---
PROCEDURE: Chest 2V INDICATIONS: hypoxia, recent PNA TECHNIQUE: 2 views of the chest were acquired. COMPARISON: None. FINDINGS: Surgical changes and devices: None. Lungs and pleura: No pleural effusions or pneumothorax. Lungs are clear. Mediastinum: Mediastinal contours appear normal. Heart size is normal. Bones and chest wall: No suspicious bony lesions. Overlying soft tissues appear unremarkable. IMPRESSION: No acute cardiopulmonary process. Reviewed by: Sherrill Murphy MD on 05/12/2023 1:14 AM PST Approved by: Sherrill Murphy MD on 05/12/2023 1:14 AM [facility] Station ID: [id number]
--- NOTE | 2023-05-12 01:31 | ED Physician Documentation ---
PD HPI DYSPNEA - Stated complaint Stated Complaint: SOA/CHEST PX - Chief complaint Chief Complaint: Resp - History obtained from History obtained from: Patient - Additional information Additional information: HPI from patient. GIGI. 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 No specific inciting event. Patient has been smoking fentanyl on regular basis including earlier tonight. T+R from this ED last month for similar symptoms and prescribed medications included zithromax for pneumonia (I was the treating physician on that visit). She denies fever, chest pain (on my HPI). Given duoneb by EMS with improvement (per patient report as well as room air pulse ox which was 90% prior to duoneb). Review of Systems Constitutional: denies: Fever, Chills, Sweats Cardiac: denies: Chest pain / pressure Respiratory: reports: Dyspnea, Wheezing. 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 : None HEENT: None Psych: Depression, Anxiety Musculoskeletal: None Derm: Eczema - Past Surgical History Past Surgical History: No - Present Medications Home Medications: Ambulatory Orders Medication Instructions Recorded Confirmed Albuterol Sulf [Ventolin Hfa 1 - 2 puffs INH Q4HR PRN #1 each 05/12/23 Inhaler] predniSONE [Deltasone] 40 mg PO DAILY 4 Days #8 tablet 05/12/23 - Allergies Allergies/Adverse Reactions: Allergies Allergy/AdvReac Type Severity Reaction Status Date / Time cephalexin [From Keflex] Allergy Rash Verified 05/12/23 00:39 - Social History Does the pt smoke?: Yes Smoking Status: Current every day smoker Does the pt drink ETOH?: Yes Does the pt have substance abuse?: Yes Substance Use and Type: Meth, Other - Immunizations Immunizations are current?: Yes - POLST Patient has POLST: No PD ED PE NORMAL - Vitals Vital signs reviewed: Yes - General General: Alert and oriented X 3, No acute distress, Well developed/nourished - Cardiac Cardiac: RRR, No murmur - Respiratory Respiratory: No respiratory distress PD ED PE EXPANDED - Neck Neck: Adenopathy (few bilateral but prominent, nontender lymph nodes (most notably left paramandibular and right anterior cervical chain). no fluctuance, no erythema) - Respiratory Respiratory: Wheezing (trace bilateral end-expiratory wheezing. good air flow bilaterally) Results - Vitals Vitals: Oxygen O2 Source Room air - Labs Labs: Laboratory Tests 05/12/23 05/12/23 03:56 03:56 WBC 8.2 RBC 4.35 Hgb 12.4 Hct 37.4 MCV 86.0 MCH 28.5 MCHC 33.2 RDW 13.8 Plt Count 316 MPV 8.7 Neut # (Auto) 3.9 Lymph # (Auto) 2.7 [place] # (Auto) 0.6 Eos # (Auto) 0.9 H Baso # (Auto) 0.1 Absolute Nucleated RBC 0.00 Nucleated RBC % 0.0 Sodium 137 Potassium 4.3 Chloride 104 Carbon Dioxide 29 Anion Gap 4.0 L BUN 17 Creatinine 0.6 Estimated GFR (MDRD) 121 Glucose 101 Calcium 8.8 - Rads (name of study) chest xray Relevant Findings:: Prelim report reviewed, EMP independent interpretation of test (I reviewed these images and my interpretation is no acute cardiopulmonary abnormality), See rad report PD Medical Decision Making - ED course Complexity details: reviewed results, re-evaluated patient, considered differential, d/w patient ED course: Unremarkable CBC, ER abdominal panel. No acute findings on CXR including no plain-film evidence of pneumonia. She has a few prominent lymph nodes on exam as noted above (NECK, physical exam). Unclear as to cause of the lymphadenopathy but normal CBC is reassuring. I advised her of the test results and instructed her to seek follow up in outpatient setting for reevaluation of her symptoms as well as the lymphadenopathy. On reexamination prior to discharge, she is asleep but awakens to voice with gentle tactile stimulus, NAD and lungs are CTA bilaterally after 2 puffs of albuterol via MDI. I am providing prescriptions for short course of prednisone as well as an albuterol MDI. Also given 40mg PO prednisone in ED. Return precautions reviewed. Departure - Departure Disposition: 01 Home, Self Care Clinical Impression: Dyspnea Qualifiers: Dyspnea type: shortness of breath Qualified Code(s): R06.02 - Shortness of breath Condition: Good Instructions: ED Bronchitis Asthmatic Prescriptions: Albuterol Sulf [Ventolin Hfa Inhaler] 1 - 2 puffs INH Q4HR PRN #1 each PRN Reason: Shortness Of Air/Wheezing predniSONE [Deltasone] 40 mg PO DAILY 4 Days #8 tablet Comments: There were no abnormalities on the chest x-ray; specifically, no evidence of lung infection such as pneumonia or an abscess. Your blood tests were unremarkable. The cause of your swollen lymph nodes in your neck is not apparent at this time. I have electronically submitted prescriptions for prednisone (steroid, once daily for the next 4 days) as well as an albuterol inhaler to the [facility] pharmacy in [place]. Follow-up with your primary care provider within one week for reevaluation of your symptoms as well as the lymph node abnormalities Forms: PCP List Discharge Date/Time: 05/12/23 05:17
[2023-05-12] MEDS: ALBUTEROL 1 PUFF INH STA (03:10)
[2023-05-12 03:59] LABS: BASOPHILS # (AUTO) 0.1 10^3/uL (0.0-0.1); BASOPHILS % (AUTO) 0.9 %; EOSINOPHILS # (AUTO) 0.9 10^3/uL (0.0-0.7); EOSINOPHILS % (AUTO) 10.7 %; HCT - HEMATOCRIT 37.4 % (37.0-47.0); HGB - HEMOGLOBIN 12.4 g/dL (12.0-16.0); LYMPHOCYTES # (AUTO) 2.7 10^3/uL (1.5-3.5); LYMPHOCYTES % (AUTO) 33.2 %; MEAN CORPUSCULAR HEMOGLOBIN 28.5 pg (27.0-31.0); MEAN CORPUSCULAR HGB CONC 33.2 g/dL (32.0-36.0); MEAN PLATELET VOLUME 8.7 fL (7.9-10.8); MONOCYTES # (AUTO) 0.6 10^3/uL (0.0-1.0); MONOCYTES % (AUTO) 7.2 %; NEUTROPHILS # (AUTO) 3.9 10^3/uL (1.5-6.6); NEUTROPHILS % (AUTO) 47.8 %; PLT - PLATELET COUNT 316 10^3/uL (130-450); RED BLOOD COUNT 4.35 10^6/uL (4.20-5.40); RED CELL DISTRIBUTION WIDTH 13.8 % (12.0-15.0); WHITE BLOOD COUNT 8.2 x10^3/uL (4.8-10.8)
[2023-05-12] MEDS: predniSONE 20 MG TABLET PO STA (04:03)
[2023-05-12 04:12] LABS: CALCIUM 8.8 mg/dL (8.5-10.3); CREATININE 0.6 mg/dL (0.6-1.3); POTASSIUM 4.3 mmol/L (3.5-4.5)
[2023-05-12 05:18] VITALS: BP 115/70; O2SAT 93
== END 2023-05-12 05:17 | disposition home or self-care (01) ==
LOC: EDUNIT# → ED 00:21
DX: R06.02 Shortness of breath (principal); R59.0 Localized enlarged lymph nodes; F17.200 Nicotine dependence, unspecified, uncomplicated
CPT/HCPCS: 36415; 71046; 80048; 85025; 94640; 94664; 99284; J7512

== ENCOUNTER 2023-12-12 13:05 | Emergency (ER) | payer MEDICAID ==
[2023-12-12 13:13] VITALS: O2SAT 100
--- NOTE | 2023-12-12 13:29 | ED Physician Documentation ---
History of Present Illness - Stated complaint Stated Complaint: LT ELBOW PX/SWELLING - Chief complaint Chief Complaint: Wound - Additonal information Additional information: Patient is a 28-year-old female presenting to the emergency department with left elbow pain and swelling. She notes symptoms started early this morning. She denies any recent trauma or overuse of left elbow. She denies any fevers or chills. She notes a small abrasion to the area that was only there when she woke up this morning. She has history of IV drug use but has not used within the last few months. She denies any medication she has taken for pain. She denies any fevers or chills associated with her symptoms. She notes significant pain with movement of the left elbow. No previous surgeries to her left elbow. 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 HEENT: None Psych: Depression, Anxiety Musculoskeletal: None Derm: Eczema - Past Surgical History Past Surgical History: No - Present Medications Home Medications: Ambulatory Orders Medication Instructions Recorded Confirmed Albuterol Sulf [Ventolin Hfa 1 - 2 puffs INH Q4HR PRN #1 each 05/12/23 Inhaler] predniSONE [Deltasone] 40 mg PO DAILY 4 Days #8 tablet 05/12/23 Naproxen 500 mg PO BID PRN #15 tablet 12/12/23 - Allergies Allergies/Adverse Reactions: Allergies Allergy/AdvReac Type Severity Reaction Status Date / Time cephalexin [From Keflex] Allergy Rash Verified 12/12/23 13:08 - Social History Does the pt smoke?: Yes Smoking Status: Current every day smoker Does the pt drink ETOH?: Yes Does the pt have substance abuse?: Yes - Immunizations Immunizations are current?: Yes - POLST Patient has POLST: No PD ED PE NORMAL - Vitals Vital signs reviewed: Yes - General General: Alert and oriented X 3 - HEENT HEENT: Atraumatic, Moist mucous membranes - Neck Neck: Supple, no meningeal sign - Cardiac Cardiac: RRR, No murmur, No gallop, No rub - Respiratory Respiratory: No respiratory distress, Clear bilaterally - Derm Derm: Other (Mild erythema noted to left elbow with mild swelling appreciated and mild tenderness on examination. No vesicles no discharge from the area, no induration or fluctuance on exam) - Extremities Extremities: No deformity, Other - Free text exam Free text exam: Left elbow shows mild erythema to olecranon process. Passive range of motion of left elbow intact but mild pain on full extension and flat full flexion. Small abrasion less than 1 cm in size noted to olecranon but no palpable fluctuance or induration. No significant warmth on examination. Full range of motion of wrist and digits 1 through 5 intact. Good handgrip strength bilaterally and good pulses bilaterally. Results - Vitals Vitals: Vital Signs - 24 hr 12/12/23 13:08 Temperature 36.8 C Heart Rate 100 Respiratory 16 Rate Blood Pressure 107/76 O2 Saturation 100 Oxygen O2 Source Room air PD Medical Decision Making - ED course Complexity details: reviewed results ED course: Patient is a 28-year-old female presenting to the emergency department with left elbow pain and swelling. Patient denies any recent trauma she denies any overuse of the left elbow she denies pain yesterday. She notes symptoms started after she woke up this morning. She denies any fevers or chills. No generalized bodyaches. She has not taken anything for her symptoms she came to the emergency department shortly prior to arrival. Patient denies any similar episodes of this in the past. She denies being . X-ray of left elbow obtained here in emergency department. Patient was given a dose of Toradol for pain control and anti-inflammatory control. Vitals are stable on arrival. Physical exam shows left elbow shows mild erythema to olecranon process. Passive range of motion of left elbow intact but mild pain on full extension and flat full flexion. Small abrasion less than 1 cm in size noted to olecranon but no palpable fluctuance or induration. No significant warmth on examination. Full range of motion of wrist and digits 1 through 5 intact. Good handgrip strength bilaterally and good pulses bilaterally. No other acute findings on examination. Patient's workup otherwise stable here in emergency department. Low suspicion for infection given sudden onset additionally no significant fluctuance or fluid in elbow joint and patient does have good range of motion on movement. Patient requesting to leave prior to x-rays being completed. She needs to get a ride home and they are expressing the patient she needs to leave. Patient informed that she should stay until x-rays returned however she is unwilling to at this time. Discussed with patient at this point I suspect low infectious cause given sudden onset no fevers or chills. No large amount of fluid in joint and area appears superficial to olecranon. Discussed with patient strict return precautions including fevers discharge from the wound worsening pain or any other new or worsening symptoms. Should be given anti-inflammatories in the outpatient setting to help with pain control and instructed to ice and wrap with Med wrap at home. Patient understands and is agreeable with this plan. She will return with any of the symptoms listed above. Departure - Departure Disposition: Home, Self Care Clinical Impression: Olecranon bursitis, left elbow, Swelling of left elbow Condition: Good Instructions: ED Bursitis Comments: You were seen here in the emergency department for your left elbow pain and swelling. You left prior to images of your left elbow being completed. If giving you an Med wrap to help with compression and anti-inflammatories to take at home to help with symptoms. If you develop any fevers worsening pain swelling or redness to the area you should return immediately to the emergency department. These are signs of infections and you would require antibiotics for treatment. Keep elbow elevated and iced. Return with any other new or worsening symptoms. Forms: PCP List
[2023-12-12] MEDS: KETOROLAC 15 MG/ML VIAL IM STA (13:43)
[2023-12-12 14:41] VITALS: BP 122/80
--- NOTE | 2023-12-12 14:43 | XRAY Report ---
PROCEDURE: Elbow 3+V LT INDICATIONS: left elbow pain TECHNIQUE: 3 views of the elbow were acquired. COMPARISON: None. FINDINGS: Bones: No fractures or dislocations. No suspicious bony lesions. Soft tissues: No effusion. No suspicious soft tissue calcifications or masses. IMPRESSION: No acute bony abnormality or significant joint effusion. Reviewed by: Sandrita Azevedo MD on 12/12/2023 1:41 PM [facility] Approved by: Sandrita Azevedo MD on 12/12/2023 1:41 PM [facility] Station ID: [id number]
== END 2023-12-12 14:38 | disposition home or self-care (01) ==
LOC: ED 13:05
DX: M70.22 Olecranon bursitis, left elbow (principal); J45.909 Unspecified asthma, uncomplicated; F17.200 Nicotine dependence, unspecified, uncomplicated; F32.A Depression, unspecified; F41.9 Anxiety disorder, unspecified
CPT/HCPCS: 96372; 99283